=== PATIENT | female | born 1960 | race Caucasian/White ===

== ENCOUNTER → 2020-04-29 13:48 | Outpatient (BNVA) | payer OTHER, SELFPAY | PROVIDERS: PCP Internal Medicine; Referring Provider Internal Medicine; Visit Provider Obstetrics & Gynecology | DX: Z76.89 Persons encountering health services in other specified circumstances (principal) ==

== ENCOUNTER 2020-04-29 17:13 | Outpatient (REF) | payer OTHER, SELFPAY ==
[2020-05-05 21:38] LABS: HPV mRNA E6/E7 rflx Not Detected (Not Detected)
== END 2020-04-29 17:14 | disposition home or self-care (01) ==
LOC: HO.LNP 17:13
PROVIDERS: Visit Provider Obstetrics & Gynecology
DX: Z12.4 Encounter for screening for malignant neoplasm of cervix (principal)
CPT/HCPCS: 87624; 87625; 88142

== ENCOUNTER 2020-04-30 11:02 | Outpatient (REF) | payer OTHER, SELFPAY | END 2020-04-30 11:03 | disposition home or self-care (01) | LOC: HO.LAB 11:02 | PROVIDERS: Visit Provider Obstetrics & Gynecology | DX: Z13.89 Encounter for screening for other disorder (principal) ==

== ENCOUNTER → 2020-11-02 14:42 | Outpatient (BNVA) | payer OTHER, SELFPAY | PROVIDERS: PCP Internal Medicine; Referring Provider Internal Medicine; Visit Provider Internal Medicine Cardiovascular Disease | DX: I47.1 Supraventricular tachycardia (principal); I25.10 Atherosclerotic heart disease of native coronary artery without angina pectoris | CPT/HCPCS: 93005 ==

== ENCOUNTER 2020-11-06 08:29 | Outpatient (REF) | payer OTHER, SELFPAY ==
[2020-11-06 11:50] LABS: Cholesterol 192 mg/dL; HDL Cholesterol 50 mg/dL; LDL Cholesterol Calculated 130 mg/dl; Triglycerides 61 mg/dL
== END 2020-11-06 08:30 | disposition home or self-care (01) ==
LOC: HO.HMGCLDS 08:29
PROVIDERS: PCP Internal Medicine; Visit Provider Internal Medicine Cardiovascular Disease
DX: I25.10 Atherosclerotic heart disease of native coronary artery without angina pectoris (principal)
CPT/HCPCS: 36415; 80061

== ENCOUNTER 2021-01-28 08:50 | Outpatient (REF) | payer OTHER, SELFPAY ==
[2021-01-28 11:55] LABS: Alanine Aminotransferase 21 U/L (0-31); Albumin Level 4.2 g/dL (3.5-5.0); Alkaline Phosphatase 80 U/L (39-117); Anion Gap 12 (12-20); Aspartate Amino Transferase 24 U/L (5-31); Bilirubin Total 0.9 mg/dL (0.0-1.0); Blood Urea Nitrogen 11 mg/dL (9-16); Calcium 9.3 mg/dL (8.4-10.2); Carbon Dioxide 29 mmol/L (22-29); Chloride 105 mmol/L (96-108); Cholesterol 179 mg/dL; Estimated Glomerular Filt Rate > 60; Glucose Fasting 93 mg/dL (60-99); HDL Cholesterol 43 mg/dL; LDL Cholesterol Calculated 115 mg/dl; Potassium 4.1 mmol/L (3.3-5.1); Sodium 142 mmol/L (135-145); Total Protein 6.7 g/dL (6.5-8.0); Triglycerides 105 mg/dL
== END 2021-01-28 08:51 | disposition home or self-care (01) ==
LOC: HO.HMGCLDS 08:50
PROVIDERS: PCP Internal Medicine; Visit Provider Internal Medicine
DX: Z00.01 Encounter for general adult medical examination with abnormal findings (principal); E66.09 Other obesity due to excess calories; I25.10 Atherosclerotic heart disease of native coronary artery without angina pectoris; I47.1 Supraventricular tachycardia; R03.0 Elevated blood-pressure reading, without diagnosis of hypertension
CPT/HCPCS: 36415; 80053; 80061

== ENCOUNTER 2021-03-18 13:35 | Outpatient (REF) | payer OTHER, SELFPAY ==
--- NOTE | ~2021-03-18 | MM_ITS ---
EXAMINATION: MM SCREENING DIGITAL BREAST TOMOSYNTHESIS, BILATERAL CLINICAL INFORMATION: Screening. Asymptomatic. The lifetime risk of breast cancer based on the Tyrer-Cuzick Model is 5.2%. COMPARISON: Mammography: February 19, 2020 TECHNIQUE: Digital breast tomosynthesis is performed in both the craniocaudal and mediolateral oblique views along with computer-aided detection (CAD). Synthesized 2D images are generated from the tomosynthesis. FINDINGS: There are scattered areas of fibroglandular density (ACR BI-RADS breast composition Category b). There are no significant masses, abnormal calcifications, or other abnormalities. MM/MM tomosynthesis screening BI IMPRESSION: There are no significant changes from prior study. ASSESSMENT: BI-RADS 1: Negative RECOMMENDATION: Routine annual mammography screening. This patient's information was entered into a reminder system with a target due date for their next mammogram.
== END 2021-03-18 13:36 | disposition home or self-care (01) ==
LOC: HO.MAMMO 13:35
PROVIDERS: PCP Internal Medicine; Visit Provider Obstetrics & Gynecology
DX: Z12.31 Encounter for screening mammogram for malignant neoplasm of breast (principal)
CPT/HCPCS: 77063; 77067

== ENCOUNTER → 2021-06-15 15:08 | Outpatient (BNVA) | payer OTHER, SELFPAY | PROVIDERS: PCP Internal Medicine; Visit Provider Advanced Practice Midwife ==

== ENCOUNTER → 2021-11-15 12:47 | Outpatient (BNVA) | payer OTHER, SELFPAY | PROVIDERS: PCP Internal Medicine; Referring Provider Internal Medicine; Visit Provider Internal Medicine Cardiovascular Disease | DX: I25.10 Atherosclerotic heart disease of native coronary artery without angina pectoris (principal); I48.92 Unspecified atrial flutter; I10 Essential (primary) hypertension | CPT/HCPCS: 93005 ==

== ENCOUNTER 2021-11-19 08:11 | Outpatient (REF) | payer OTHER, SELFPAY ==
[2021-11-19 11:59] LABS: Anion Gap 11 (12-20); Blood Urea Nitrogen 11 mg/dL (9-16); Calcium 9.7 mg/dL (8.4-10.2); Carbon Dioxide 29 mmol/L (22-29); Chloride 101 mmol/L (96-108); Cholesterol 220 mg/dL; Estimated Glomerular Filt Rate > 60; Glucose Random 99 mg/dL (60-115); HDL Cholesterol 48 mg/dL; LDL Cholesterol Calculated 153 mg/dl; Potassium 4.3 mmol/L (3.3-5.1); Sodium 137 mmol/L (135-145); Triglycerides 97 mg/dL
== END 2021-11-19 08:12 | disposition home or self-care (01) ==
LOC: HO.HMGCLDS 08:11
PROVIDERS: PCP Internal Medicine; Visit Provider Internal Medicine Cardiovascular Disease
DX: I25.10 Atherosclerotic heart disease of native coronary artery without angina pectoris (principal)
CPT/HCPCS: 36415; 80048; 80061

== ENCOUNTER → 2021-12-24 13:47 | Outpatient (REF) | payer OTHER, SELFPAY ==
--- NOTE | 2021-12-24 14:16 | CA_ITS ---
Transthoracic Echocardiogram Patient (Last, First, Middle): Candida Chacon R Gender: Female Date of : 1960 Age: 61 Procedure Date: 12/24/2021 Procedure Type: Transthoracic Echocardiogram Location: OP Height: 167.64 cm Weight: 104.33 kg BSA: 2.12 m2 Heart Rate: bpm BP: 130 / 80 mmHg Director Of Cardiopulmonary Services: Referring MD: Iam Almeida MD Symptoms: I48.92 - Unspecified atrial flutter Study Quality: Fair ECG Rhythm: Sinus Conclusions: - The left ventricular systolic function is normal. The visually estimated ejection fraction is between 65-70%. - No obvious valvular pathology seen on this study. Findings Left Ventricle Normal left ventricular cavity size. There is mildly increased left ventricular wall thickness. The left ventricular systolic function is normal. The visually estimated ejection fraction is between 65-70%. There is no evidence of regional wall motion abnormalities. E/E prime ratio is between 8 and 15 consistent with indeterminate filling pressures. Evidence suggests grade I (mild) diastolic dysfunction. Right Ventricle Normal right ventricular cavity size and systolic function. Atria The left atrium is mildly dilated. The right atrium is normal in size. Aortic Valve There is a normal trileaflet aortic valve. There is no aortic valve stenosis. There is no aortic valve regurgitation. Mitral Valve The mitral valve appears normal. There is trace mitral valve regurgitation. There is no mitral valve stenosis. Pulmonic Valve There is trace to mild pulmonic valve regurgitation. Tricuspid Valve Normal tricuspid valve structure. There is mild tricuspid valve regurgitation. The pulmonary artery systolic pressure is normal. Great Vessels Top normal ascending aortic size at 3.8 cm. Venous The inferior vena cava is normal in size and collapses greater than 50% with inspiration. Pericardium/Pleural There is no evidence of pericardial effusion. Prior Study Comparison No significant change compared to prior study dated: 08/10/2019. Recommendations, Care & Conclusions No obvious valvular pathology seen on this study. Measurements 2D Linear Measurements IVSd: 1.13 0.6-0.9/0.6-1.0 cm LVIDd: 4.55 3.9-5.3/4.2-5.9 cm LVIDd Index: 2.15 2.4-3.2/2.2-3.1 cm/m2 LVIDs: 2.92 2.0-3.6 cm LVPWd: 1.07 0.7-1.1 cm Ao Root: 3.20 2.1-3.5 cm LA Diam: 4.40 2.7-3.8/3.0-4.0 cm LAIDs Index: 2.08 1.5-2.3 cm/m2 LV Mass: 221.88 67-162/88-224 g LV Mass Index: 104.66 43-95/49-115 g/m2 LVOT Diam: 2.00 3.0+(-)1.3 cm 2D Systolic Function EF 4C: 56.30 >55% EF 2C: 57.20 >55% EF BiP: 56.90 >55% Mitral Valve MV Pk E: 0.61 MV PK A: 0.47 MV Decel Time: 252.00 E/A: 1.30 E'Lateral: 4.46 E'Medial: 5.77 E/E' Med: 10.60 E/E' Lat: 13.70 PHT: 74.00 MVA PHT: 2.97 Decel Lyman: 2.44 Aortic Valve AoV Pk Mj: 1.49 AoV Mn Mj: 0.97 AoV VTI: 0.41 AoV Pk Grad: 9.00 Aov Mn Grad: 5.00 KIT Cont.VTI: 1.82 LVOT LVOT Pk Mj: 1.06 LVOT Mn Mj: 0.64 LVOT VTI: 0.24 LVOT Pk Grad: 4.00 LVOT Mn Grad: 2.00 LVOT Diam: 2.00 LVOT Area: 3.14 Diastolic Function MV Pk E: 0.61 MV Pk A: 0.47 E/A: 1.30 E'Medial: 5.77 E/E' Med: 10.60 E' Laterial: 4.46 E/E' Lat: 13.70 Right Ventricle TAPSE (mm): 23.00 Tricuspid Valve TR Pk Mj: 2.64 TR Pk Grad: 28.00 RA Press: 3.00 RVSP: 31.00 Great Vessels Aorta Ao Root-2D: 3.20 2.0-3.7 cm Ao Asc: 3.80 2.1-3.4 cm Pulmonary Valve PV Pk Mj: 0.99 Peak PV Grad: 4.00 Updated in Other Vendor System with Status of Final Ken Avina MD electronically signed on 12/26/2021 12:19:04 PM with status of Final
--- NOTE | 2021-12-24 14:16 | HM_ITS ---
Conclusion: 1. Patient was monitored for total period of 3 days 2. Baseline was normal sinus rhythm with average heart rate of 49 beats per minute 3. Frequent sinus bradycardia noted with 69% of time heart rate below 60 beats per minute with lowest heart rate of 35 beats per minute 4. No significant pauses noted 5. No episodes of atrial fibrillation noted 6. Total of 24 short episodes of supraventricular tachycardia longest lasting 8 beats 7. Rare PACs 8. Patient reported 4 events, with no reported symptoms, all correlated with isolated PACs MTDD
== END ==
LOC: HO.CARD 13:47
PROVIDERS: PCP Internal Medicine; Visit Provider Internal Medicine Cardiovascular Disease
DX: I48.92 Unspecified atrial flutter (principal)
CPT/HCPCS: 93242; 93306

== ENCOUNTER → 2022-02-03 07:22 | Outpatient (REF) | payer OTHER, SELFPAY ==
--- NOTE | 2022-02-03 07:24 | HM_ITS ---
* Total monitoring time 3 days. * Underlying rhythm is sinus. Average rate 56/Min. Range 37 to 123/Min. * About 43% the time, rate < 60/Min. No significant pauses. * No atrial fibrillation or flutter. * Rare supraventricular ectopy with minimal burden. 28 supraventricular episodes, longest 17 beats. * Rare supraventricular ectopy with minimal burden. * No patient events. MTDD
== END ==
LOC: HO.CARD 07:22
PROVIDERS: Visit Provider Internal Medicine Cardiovascular Disease
DX: I25.10 Atherosclerotic heart disease of native coronary artery without angina pectoris (principal); I48.92 Unspecified atrial flutter; I10 Essential (primary) hypertension
CPT/HCPCS: 93242

== ENCOUNTER 2022-03-22 14:44 | Outpatient (REF) | payer OTHER, SELFPAY ==
--- NOTE | ~2022-03-22 | MM_ITS ---
EXAMINATION: MM SCREENING DIGITAL BREAST TOMOSYNTHESIS, BILATERAL CLINICAL INFORMATION: Screening. Asymptomatic. The lifetime risk of breast cancer based on the Tyrer-Cuzick Model is 6%. COMPARISON: Mammography: 03/18/2021, 02/19/2020 (new baseline) TECHNIQUE: Digital breast tomosynthesis is performed in both the craniocaudal and mediolateral oblique views along with computer-aided detection (CAD). Synthesized 2D images are generated from the tomosynthesis. FINDINGS: There are scattered areas of fibroglandular density (ACR BI-RADS breast composition Category b). Parenchymal pattern is similar to prior exams and there is no interval mass, architectural abnormality, or developing density. No abnormal calcifications. There is small stable smooth nodule central right breast mid depth. The axilla are and skin contours are unremarkable. No significant changes. MM/MM tomosynthesis screening BI IMPRESSION: No mammographic evidence of malignancy. ASSESSMENT: BI-RADS 2: Benign RECOMMENDATION: Routine annual mammography screening. This patient's information was entered into a reminder system with a target due date for their next mammogram.
== END 2022-03-22 14:45 | disposition home or self-care (01) ==
LOC: HO.MAMMO 14:44
PROVIDERS: PCP Internal Medicine; Visit Provider Internal Medicine
DX: Z12.31 Encounter for screening mammogram for malignant neoplasm of breast (principal)
CPT/HCPCS: 77063; 77067

== ENCOUNTER → 2022-07-04 15:03 | Outpatient (BNVA) | payer OTHER, SELFPAY | PROVIDERS: PCP Internal Medicine; Visit Provider Advanced Practice Midwife | DX: Z01.419 Encounter for gynecological examination (general) (routine) without abnormal findings (principal) ==

== ENCOUNTER → 2022-07-05 09:01 | Outpatient (BNVA) | payer OTHER, SELFPAY | PROVIDERS: PCP Internal Medicine; Referring Provider Internal Medicine; Visit Provider Internal Medicine Cardiovascular Disease | DX: Z13.89 Encounter for screening for other disorder (principal) ==

== ENCOUNTER → 2022-07-28 08:09 | Outpatient (BNVA) | payer OTHER, SELFPAY | PROVIDERS: PCP Internal Medicine; Visit Provider Obstetrics & Gynecology | DX: Z13.89 Encounter for screening for other disorder (principal) ==

== ENCOUNTER 2023-02-10 08:14 | Outpatient (AMB) | payer OTHER, SELFPAY ==
--- NOTE | 2023-02-10 08:21 | A.OFFPC_ITS ---
Vital Signs 02/10/23 08:26 Height 5 ft 6 in Weight 245 lb 8 oz BMI 39.6 BP 142/82 H Blood Pressure Location Lt brachial Position Sitting Pulse 120 H Pulse Source Pulse Oximeter Pulse Oximetry (%) 96 Oxygen Delivery Method Room Air Intake Visit Reasons: Physical exam Allergies [id number] Reductase Inhibitor Allergy (Mild, Verified 02/10/23 08:27) Muscle Pain amoxicillin [AMOXICILLIN] Allergy (Unknown, Verified 02/10/23 08:27) HIVES azithromycin Allergy (Unknown, Verified 02/10/23 08:27) Unknown Sulfa (Sulfonamide Antibiotics) [SULFA (SULFONAMIDE ANTIBIOTICS)] Allergy (Unkn own, Verified 02/10/23 08:27) HIVES Medication List - Last Reconciled 02/10/23 by Michelle Sarmiento MD amlodipine 5 mg PO DAILY 90 days rivaroxaban (Xarelto) 20 mg PO QPM Tobacco use date assessed: 02/10/23 Dental Screening Dental Screen Date: 02/10/23 Did you have a dental visit in the last 12 months?: Yes Did you have a dental problem in the last 6 months where you did not have access to dental care?: No Was dental information given to patient?: No HPI Physical exam HPI Details Patient is a 62-year-old female came in today for physical examination Blood pressure is managed through Cardiology patient is seeing Dr. Almeida she is taking amlodipine 5 mg and Xarelto Blood pressure is 142/82, however patient feels very nervous when she comes to doctor's office. Her LDL was 153 last year when she had labs in October, I am ordering another set of labs for the patient to be done fasting She continued to decline to do colonoscopy however complaining of having diarrhea once a day for the past 1 month without any fever , nausea vomiting or blood in her stools. Patient says that her daughter has irritable bowel she feels she has similar Mammogram was April of last year Pap smear through [facility] BMI is elevated patient need to lose weight. Physical exam next year [facility] Medical History A-fib CAD (coronary artery disease) Cervical mass PAT (paroxysmal atrial tachycardia) Uncontrolled hypertension Surgical History H/O oral surgery Hx of cholecystectomy Hx of tonsillectomy Family History Father Heart failure Social History Housing: House Alcohol intake: never Patient Tobacco Use Status: Never used Tobacco e-Cigarette/Vaping Use: Never Used Second Hand Smoke Exposure: No Current occupational status: employed Sexual orientation: Straight/Heterosexual Gender identity: Female Cognitive needs: No Hearing needs: No Vision needs: Yes Female Reproductive History Menstrual Age of Menarche: 11 Questionnaire PHQ-9 Over the last 2 weeks, how often have you been bothered by any of the following problems? 1. Little interest or pleasure in doing things: not at all 2. Feeling down, depressed, or hopeless: not at all 3. Trouble falling or staying asleep, or sleeping too much: not at all 4. Feeling tired or having little energy: not at all 5. Poor appetite or overeating: not at all 6. Feeling bad about yourself - or that you are a failure or have let yourself or your family down: not at all 7. Trouble concentrating on things, such as reading the newspaper or watching television: not at all 8. Moving or speaking so slowly that other people could have noticed. Or the opposite - being so fidgety or restless that you have been moving around a lot more than usual: not at all 9. Thoughts that you would be better off or of hurting yourself in some way: not at all Total score: 0 Depression Screening Interpretation: Negative 23552 - PHQ-9 Billing: Yes Source: Developed by Drs. Jovanny Hernandez, Elly Costa, Jurgen Guillen and colleagues, with an educational marva from [employer]. Thrive Questionnaire Date Thrive assessed: 02/10/23 I am a: Patient What is your living situation today?: I have a steady place to live Within the past 12 months, did the food you bought not last and you didn't have the money to get more?: Never true Within the past 12 months, did you worry whether your food would run out before you got money to buy more?: Never true Do you have trouble paying for medicines?: No Do you have trouble getting transportation to medical appointments?: No Do you have trouble paying your heating and electricity bill?: No Do you have trouble taking care of your child, family member or friend?: No Do you have trouble with day-to-day activities such as bathing, preparing meals, shopping, managing finances, etc.?: No Are you currently unemployed and looking for a job?: No Are you interested in more education?: No AUDIT C Alcohol Use Questionnaire (AUDIT-C) 1. How often do you have a drink containing alcohol?: Never 3. How often do you have six or more drinks on one occasion?: Never Total Score: 0 Score Reviewed/Action Taken: Yes DARNELL-7 AMB Questionnaire DARNELL-7 Date DARNELL - 7 assessed: 02/10/23 Feeling nervous, anxious, or on edge: 0 = Not at all Not being able to stop or control worryin = Not at all Worrying too much about different things: 1 = Several days Trouble relaxin = Not at all Being so restless that it is hard to sit still: 0 = Not at all Becoming easily annoyed or irritable: 0 = Not at all Feeling afraid as if something awful might happen: 0 = Not at all Total DARNELL-7 score (0-4 normal; 5-9 mild; 10-14 moderate; 15-21 severe): 1 Source: Developed by Drs. Jovanny Hernandez, Elly Costa, Jurgen Guillen and colleagues, with an educational marva from [employer]. DARNELL-7 Assessment Billing DARNELL-7 Assessment Tool: DARNELL-7 Assessment 50970 Review of Systems Const Denies chills, Denies fever(s) and Denies headache(s) Eyes Denies blurry vision ENT Denies headache(s), Denies nasal discharge, Denies nasal obstruction, Denies odynophagia and Denies sinus pain Card Denies chest pain at rest and Denies chest pain with activity Resp Denies cough and Denies hemoptysis GI Denies diarrhea, Denies odynophagia, Denies vomiting and Denies hematemesis Reports as per HPI Musc Denies abnormal gait Skin/Breast Reports as per HPI Neuro Denies Neuro-related abnormal movements, Denies Abnormal speech present, Denies abnormal gait, Denies headache(s) and Denies Sensory deficit (Neuro) Psych Denies mood swings and Denies paranoia Endo Reports as per HPI Vance/Lymph Reports as per HPI Aller/Immun Reports as per HPI Physical exam (Primary Care) Vital Signs: Last Vital Signs Pulse 120 H 02/10/23 08:26 BP 142/82 H 02/10/23 08:26 Pulse Ox 96 02/10/23 08:26 Oxygen Delivery Method Room Air 02/10/23 08:26 BMI result Body Mass Index 39.6 Tobacco/Smoking Status: Tobacco use Status Tobacco use date assessed 02/10/23 02/10/23 08:27 Patient Tobacco Use Status Never used Tobacco 02/10/23 08:22 e-Cigarette/Vaping Use Never Used 02/10/23 08:22 PHQ-9: PHQ-9 Score PHQ-9: Total score 0 02/10/23 08:54 Depression Screening Interpretation: Negative Thrive Assessment: Date of Thrive Assessment Date Thrive assessed 02/10/23 02/10/23 08:54 Const General: cooperative, comfortable and no acute distress Orientation/consciousness: patient oriented x3 HENMT Head: Yes normocephalic and Yes atraumatic Eyes General: appearance normal, both eyes and all related structures Pupils: Equal, round and reactive pupils present EOM: EOMs intact bilaterally Neck Neck: Yes supple and No lymphadenopathy Thyroid: Thyroid normal Lymphatic: no lymphadenopathy noted Resp Effort & Inspection: normal respiratory effort and able to speak in complete sentences Auscultation: clear to auscultation bilaterally Cardio Heart sounds: S1 normal heart sound present and S2 normal heart sound present GI Palpation (GI): Soft to palpation and nontender Auscultation: normal bowel sounds General: Yes no CVA tenderness Back/Spine/Pelvis Back: no CVA tenderness Skin General skin exam: elasticity normal and turgor normal Neuro General: patient oriented x3 and gait normal Cranial nerves: Yes Equal, round and reactive pupils present Speech: No Abnormal speech present Sensory Exam: No Sensory deficit (Neuro) Coordination: tandem gait normal and Romberg test negative Extrem Other: Varicosities noted lower extremity bilateral General: Yes normal exam except as noted and No edema Assessment and Plan Assessment & Plan (1) Encounter for general adult medical examination with abnormal findings: Code(s): Z00.01 - Encounter for general adult medical examination with abnormal findings (2) Obesity due to excess calories: Code(s): E66.09 - Other obesity due to excess calories (3) Elevated blood pressure reading: Code(s): R03.0 - Elevated blood-pressure reading, without diagnosis of hypertension (4) Diarrhea: Code(s): R19.7 - Diarrhea, unspecified (5) Paroxysmal atrial flutter: Code(s): I48.92 - Unspecified atrial flutter (6) CAD (coronary artery disease): Code(s): I25.10 - Atherosclerotic heart disease of havasupai coronary artery without angina pectoris (7) Varicose veins of right lower extremity: Code(s): I83.91 - Asymptomatic varicose veins of right lower extremity (8) Colonoscopy refused: Code(s): Z53.20 - Procedure and treatment not carried out because of patient's decision for unspecified reasons Plan Patient is a 62-year-old female came in today for physical examination Blood pressure is managed through Cardiology patient is seeing Dr. Almeida she is taking amlodipine 5 mg and Xarelto Blood pressure is 142/82, however patient feels very nervous when she comes to doctor's office. Her LDL was 153 last year when she had labs in October, I am ordering another set of labs for the patient to be done fasting She continued to decline to do colonoscopy however complaining of having diarrhea once a day for the past 1 month without any fever , nausea vomiting or blood in her stools. Patient says that her daughter has irritable bowel she feels she has similar Mammogram was April of last year Pap smear through [facility] BMI is elevated patient need to lose weight. Physical exam next year Orders: Orders Comprehensive Ayr. Panel Fast Today E66.09 - Other obesity due to excess calories, R03.0 - Elevated blood-pressure reading, without diagnosis of hypertension, R19.7 - Diarrhea, unspecified, Z00.01 - Encounter for general adult medical examination with abnormal findings Lipid Panel Today E66.09 - Other obesity due to excess calories, R03.0 - Elevated blood-pressure reading, without diagnosis of hypertension, R19.7 - Diarrhea, unspecified, Z00.01 - Encounter for general adult medical examination with abnormal findings TSH reflex Free T4 Today E66.09 - Other obesity due to excess calories, R03.0 - Elevated blood-pressure reading, without diagnosis of hypertension, R19.7 - Diarrhea, unspecified, Z00.01 - Encounter for general adult medical examination with abnormal findings Complete Blood Count Auto Diff Today E66.09 - Other obesity due to excess calories, R03.0 - Elevated blood-pressure reading, without diagnosis of hypertension, R19.7 - Diarrhea, unspecified, Z00.01 - Encounter for general adult medical examination with abnormal findings Coding Level of Care Code Est Pt Prev Care 40-64y(52171) Diagnoses Encounter for general adult medical examination with abnormal findings Z00.01 Obesity due to excess calories E66.09 Elevated blood pressure reading R03.0 Diarrhea R19.7 Paroxysmal atrial flutter I48.92 CAD (coronary artery disease) I25.10 Varicose veins of right lower extremity I83.91 Colonoscopy refused Z53.20 Additional Codes DARNELL-7 Assessment Billing - DARNELL-7 Assessment Tool: DARNELL-7 Assessment [id number] ([id number])
[2023-02-10 08:26] VITALS: BP 142/82; PULSE 120; O2SAT 96; BMI 39.6
== END 2023-02-10 09:18 | disposition home or self-care (01) ==
PROVIDERS: Visit Provider Internal Medicine
DX: Z00.01 Encounter for general adult medical examination with abnormal findings (principal); E66.09 Other obesity due to excess calories; I48.92 Unspecified atrial flutter; Z68.39 Body mass index [BMI] 39.0-39.9, adult; R03.0 Elevated blood-pressure reading, without diagnosis of hypertension; R19.7 Diarrhea, unspecified; I25.10 Atherosclerotic heart disease of native coronary artery without angina pectoris; I83.91 Asymptomatic varicose veins of right lower extremity; Z53.20 Procedure and treatment not carried out because of patient's decision for unspecified reasons
CPT/HCPCS: 99396

== ENCOUNTER 2023-02-15 07:49 | Outpatient (REF) | payer OTHER, SELFPAY ==
[2023-02-15 11:11] LABS: MANUAL DIFF FLAG NO
[2023-02-15 11:39] LABS: Basophils Percent Auto 0.7 % (0-2); Eosinophils Absolute Auto 0.1 X10*3/uL (0.0-0.4); Eosinophils Percent Auto 2.1 % (0-4); Hemoglobin 14.8 g/dl (12.0-16.0); Imm Gran Abs Auto 0.03 X10*3/uL (0.00-0.03); Imm Gran Pct Auto 0.5 % (0.0-0.4); Lymphocytes Absolute Auto 1.9 X10*3/uL (1.2-4.9); Lymphocytes Percent Auto 34.1 % (20-40); Mean Corpuscular HGB Conc 33.6 g/dl (31.0-35.0); Mean Corpuscular Hemoglobin 30.1 pg (27.0-33.0); Mean Corpuscular Volume 89.6 fL (80.0-98.0); Mean Platelet Volume 11.3 fL (9.4-12.3); Monocytes Absolute Auto 0.3 X10*3/uL (0.1-1.2); Neutrophils Absolute Auto 3.2 x10*3/uL (2.0-8.3); Neutrophils Percent Auto 56.6 % (45-73); Platelet Count 199 X10*3/uL (160-400); Red Blood Count 4.91 X10*6/uL (4.20-5.50); Red Cell Distribution Width 13.3 % (11.0-16.0); White Blood Count 5.7 X10*3/uL (4.8-10.8)
[2023-02-15 12:11] LABS: Alanine Aminotransferase 20 U/L (0-31); Albumin Level 4.1 g/dL (3.5-5.0); Alkaline Phosphatase 77 U/L (39-117); Anion Gap 12 (12-20); Aspartate Amino Transferase 24 U/L (5-31); Blood Urea Nitrogen 13 mg/dL (9-16); Calcium 9.5 mg/dL (8.4-10.2); Carbon Dioxide 28 mmol/L (22-29); Chloride 105 mmol/L (96-108); Cholesterol 215 mg/dL (<200); Estimated Glomerular Filt Rate > 60; Glucose Fasting 91 mg/dL (60-99); HDL Cholesterol 48 mg/dL (>40); LDL Cholesterol Calculated 141 mg/dL (<100); Potassium 3.9 mmol/L (3.3-5.1); Sodium 141 mmol/L (135-145); Triglycerides 131 mg/dL (<150)
[2023-02-15 12:37] LABS: TSH reflex Free T4 3.03 uIU/mL (0.32-4.0)
== END 2023-02-15 07:50 | disposition home or self-care (01) ==
LOC: HO.HMGCLDS 07:49
PROVIDERS: PCP Internal Medicine; Visit Provider Internal Medicine
DX: Z00.01 Encounter for general adult medical examination with abnormal findings (principal); E66.09 Other obesity due to excess calories; R03.0 Elevated blood-pressure reading, without diagnosis of hypertension; R19.7 Diarrhea, unspecified
CPT/HCPCS: 36415; 80053; 80061; 84443; 85025

== ENCOUNTER 2023-03-28 07:43 | Outpatient (REF) | payer OTHER, SELFPAY ==
--- NOTE | ~2023-03-28 | MM_ITS ---
EXAMINATION: MM SCREENING DIGITAL BREAST TOMOSYNTHESIS, BILATERAL CLINICAL INFORMATION: Screening. Asymptomatic. COMPARISON: Mammography: 03/22/2022, 03/18/2021, 02/19/2020. TECHNIQUE: Digital breast tomosynthesis is performed in both the craniocaudal and mediolateral oblique views along with computer-aided detection (CAD). Synthesized 2D images are generated from the tomosynthesis. FINDINGS: There are scattered areas of fibroglandular density (ACR BI-RADS breast composition Category b). There is small stable smooth nodule central inferior right breast mid depth, stable and benign. There are early vascular calcifications bilaterally. These are benign. There are no suspicious masses, suspicious grouped calcifications, or areas of architectural distortion in either breast. The parenchymal pattern is stable from prior exams. No skin or axillary abnormalities. MM/MM tomosynthesis screening BI IMPRESSION: No mammographic evidence of malignancy. Stable benign findings. ASSESSMENT: BI-RADS BI-RADS 2 - Benign Findings RECOMMENDATION: Routine annual mammography screening. 1 year F/U This examination should not preclude the clinical evaluation of a suspicious palpable abnormality. This patient's information was entered into a reminder system with a target due date for their next mammogram.
== END 2023-03-28 07:44 | disposition home or self-care (01) ==
LOC: HO.MAMMO 07:43
PROVIDERS: PCP Internal Medicine; Visit Provider Internal Medicine
DX: Z12.31 Encounter for screening mammogram for malignant neoplasm of breast (principal)
CPT/HCPCS: 77063; 77067

== ENCOUNTER → 2023-03-28 08:00 | Outpatient (BNV) | payer OTHER, SELFPAY | PROVIDERS: PCP Internal Medicine; Visit Provider Radiology Diagnostic Radiology | DX: Z12.31 Encounter for screening mammogram for malignant neoplasm of breast (principal) | CPT/HCPCS: 77063; 77067 ==

== ENCOUNTER 2023-07-05 12:28 | Outpatient (REF) | payer OTHER, SELFPAY | END 2023-07-05 12:29 | disposition home or self-care (01) | LOC: HO.LNP 12:28 | PROVIDERS: PCP Internal Medicine; Visit Provider Obstetrics & Gynecology | DX: N84.1 Polyp of cervix uteri (principal); N95.0 Postmenopausal bleeding | CPT/HCPCS: 57500; 88305 ==

== ENCOUNTER 2023-07-05 12:28 | Outpatient (AMB) | payer OTHER, SELFPAY ==
--- NOTE | 2023-07-05 12:30 | MHC.OFFVIS ---
Intake Vital Signs 07/05/23 12:31 Height 5 ft 6 in Weight 256 lb BMI 41.3 BP 140/82 H Intake Visit Reasons: COMMERCIAL ATTACHE annual exam/cervical polyp Analytical Statistician Required: No Information Interpreted: non-clinical & clinical Plastics Spreading Machine Operator: Plastics Spreading Machine Operator Present (Aidyn) Allergies Cvalyxp-OHE-MlV Reductase Inhibitor Allergy (Mild, Verified 07/05/23 12:33) Muscle Pain amoxicillin [AMOXICILLIN] Allergy (Unknown, Verified 07/05/23 12:33) HIVES azithromycin Allergy (Unknown, Verified 07/05/23 12:33) Unknown Sulfa (Sulfonamide Antibiotics) [SULFA (SULFONAMIDE ANTIBIOTICS)] Allergy (Unknown, Verified 07/05/23 12:33) HIVES Is last menstrual period known: No Post menopausal: Yes Patient : No HPI HPI Comments History of Present Illness Details Presenting for annual exam. No complaints. Last exam the patient had cervical polyps and hysteroscopy D&C / polypectomy was recommended but it was not scheduled by the patient. The patient has been few episodes of vaginal bleeding over the last 2 months, stopped Xarelto on her own, is scheduled for cardiology appointment within a week Last Pap/HPV was negative in 05/15 Last Mammogram was BI-RADS 2 in 04/14 No previous screen Colonoscopy PFSH Medical History Uncontrolled hypertension Cervical mass PAT (paroxysmal atrial tachycardia) CAD (coronary artery disease) A-fib Surgical History H/O oral surgery Hx of cholecystectomy Hx of tonsillectomy Family History Father Heart failure Social History Housing: House Alcohol intake: never Patient Tobacco Use Status: Never used Tobacco e-Cigarette/Vaping Use: Never Used Second Hand Smoke Exposure: No Patient : No Current occupational status: employed Sexual orientation: Straight/Heterosexual Gender identity: Female Cognitive needs: No Hearing needs: No Vision needs: Yes Female Reproductive History Menstrual Age of Menarche: 11 control method: none Total pregnancies: 2 Full term: 2 Number of Living Children: 2 Date of last pap smear: 04/30/20 (negative) Date of Mammogram: 03/28/23 Review of Systems Const All systems reviewed & are unremarkable except as noted in HPI and below Card Reports as per HPI Resp Reports as per HPI GI Reports as per HPI and Reports no additional complaints Reports as per HPI Physical Exam Vital Signs: Last Vital Signs BP 140/82 H 07/05/23 12:31 BMI result Body Mass Index 41.3 Const General: cooperative, healthy appearing and comfortable Chest Chest palpation & inspection: normal inspection of the chest and normal palpation of entire chest wall Breast/axilla inspection: normal inspection of the breasts and normal inspection of the axillae Breast/axilla palpation: normal palpation of the breasts, normal palpation of the axillae and no axillary lymphadenopathy Resp Effort & Inspection: normal respiratory effort Auscultation: clear to auscultation bilaterally Percussion: percussion normal Cardio Palpation: normal PMI Rate: regular rate Rhythm: regular rhythm Heart sounds: no murmurs and no rubs Peripheral pulses: Peripheral pulses 2+ throughout GI Inspection: Yes normal to inspection Palpation (GI): Soft to palpation, nontender, no guarding, not rigid and No hepatosplenomegaly present Percussion: Yes normal to percussion Auscultation: normal bowel sounds Rectal Exam - Female: deferred General: Yes bladder normal to palpation External Female Exam: No lesion Speculum Exam - Vagina: normal appearance of the vagina, normal palpation, normal vaginal discharge and not erythematous Speculum Exam - Cervix: normal appearance of the cervix, normal palpation and Other cervical findings present (Three cervical polyps protruding from the endocervix) Bimanual exam- vagina & uterus: normal bimanual exam, normal palpation, uterine size normal, bladder normal to palpation, consistency normal and normal palpation Bimanual Exam- Adnexa, other: normal adnexae, no masses and no tenderness Office Procedures Endometrial Biopsy Details: The patient was counseled regarding the indication and benefits of endometrial sampling to rule out endometrial pathology including not limited to endometrial hyperplasia or endometrial cancer and others; The alternatives (Either do nothing vs. hysteroscopy D&C) & the risks were discussed with the patient including but not limited: pain, uterine perforation, bleeding, infection, possible injury to bladder, bowel, ureter, possible need for blood transfusion with all its possible risks. The patient verbalized understanding all questions answered and signed consent. The patient was placed into the dorsal lithotomy position; a speculum was inserted in the vagina. Using aseptic technique for the procedure, the cervix was cleansed with Betadine. The anterior lip of the cervix was grasped with a single tooth tenaculum. The uterus was sounded to 7 cm with a 4 mm Pipelle was used. Tissues samples were obtained and placed in formalin, in a patient labeled container and sent to the pathology department. At the end of the procedure, there was minimal bleeding noted The patient tolerated the procedure well and was discharged in good condition with the following instructions: Nothing in the vagina until the bleeding stops. No sex until the bleeding stops, to call if any of the following occurs: fever (>100.4), flu-like symptoms, abdominal pain, heavy bleeding, four smelling vaginal discharge. The patient was instructed to schedule a Follow up appointment in 2 weeks to discuss pathology results of the biopsy and treatment options. This note was generated with a voice recognition program. Some errors may have been overlooked during the review of this note. Sometimes these errors may affect the content or meaning of a given sentence. 44154-Vdyomaicbwg Biopsy COMMERCIAL ATTACHE Biopsy Before the procedure was started, discussed with the patient the procedure technique, alternatives & all the risks associated with the procedure including but not limited to: bleeding , infection, uterine perforation, injury to bladder, vessels, bowels, possible need for transfusion with all its risks, and others. All questions were answered, the patient verbalized understanding and signed the consent. Using a long Lurdes Clamp the 30 endocervical polyp were grasped when 100 time and twisted around till it came off, hemostasis was secured using pressure. The patient tolerated the procedure well. Instructions were given to the patient to call if bleeding, temp>100.4 occur. The patient verbalized understanding and agreed with the plan. This note was generated with a voice recognition program. Some errors may have been overlooked during the review of this note. Sometimes these errors may affect the content or meaning of a given sentence. 56964-Mboldi of Cervix Procedure code (CPT) selection complete Assessment & Plan Assessment & Plan (1) Well woman exam: Code(s): Z01.419 - Encounter for gynecological examination (general) (routine) without abnormal findings Plan: Co testing not indicated this year. Counseled the patient about the recommended dietary allowance of 1200 mg of Calcium & 600 IU of vitamin D. Instructions given the patient to schedule next screen Mammogram in 04/18. Offered the patient to be referred to GI for screening colonoscopy , the patient electing abutting back to us. The patient was instructed to perform monthly self-breast exams and schedule annual exam in a year. All questions answered and the patient verbalized understanding. (2) Polyp at cervical os: Comment: x3 Code(s): N84.1 - Polyp of cervix uteri Plan: Discussed with the patient the finding on pelvic exam showing 3 endocervical polyps, recommended polypectomies. Polypectomies done, see procedure note (3) Postmenopausal bleeding: Code(s): N95.0 - Postmenopausal bleeding Plan: Discussed with the patient the differential diagnosis of post menopausal bleeding with normal pelvic exam including but not limited to, endometrial hyperplasia, cancer, polyps and other causes; recommended ultrasound and EMB , EMB done, see procedure note. Instructed the patient to schedule an ultrasound follow-up appointment in 2 weeks. All questions answered, the patient verbalized understanding and agreed with the plan. Orders: Orders AMB Endometrial Biopsy Today N95.0 - Postmenopausal bleeding AMB COMMERCIAL ATTACHE Biopsy Today N84.1 - Polyp of cervix uteri Surgical Today N84.1 - Polyp of cervix uteri US pelvic and transvaginal Today N95.0 - Postmenopausal bleeding Coding Level of Care Code Est Pt Level 4 (95049) Procedure Only Diagnoses Well woman exam Z01.419 Polyp at cervical os N84.1 Postmenopausal bleeding N95.0 CPT Codes Endometrial Biopsy - CPT: 56602-Ntikfhyjijw Biopsy ([id number]) COMMERCIAL ATTACHE Biopsy - CPT: 89018-Gzlzlc of Cervix ([id number])
[2023-07-05 12:31] VITALS: BP 140/82; BMI 41.3
== END 2023-07-05 13:14 | disposition home or self-care (01) ==
PROVIDERS: PCP Internal Medicine; Visit Provider Obstetrics & Gynecology
DX: Z01.419 Encounter for gynecological examination (general) (routine) without abnormal findings (principal); N84.1 Polyp of cervix uteri; N95.0 Postmenopausal bleeding
CPT/HCPCS: 57500; 99396

== ENCOUNTER 2023-07-11 12:28 | Outpatient (AMB) | payer OTHER, SELFPAY ==
[2023-07-11 12:45] VITALS: BP 146/84; PULSE 113; BMI 41.3
--- NOTE | 2023-07-11 12:45 | MHC.OFFVIS ---
Intake Vital Signs 07/11/23 12:45 Height 5 ft 6 in Weight 255 lb 11.779 oz BMI 41.3 BP 146/84 H Blood Pressure Location Lt brachial Position Sitting Pulse 113 H Intake Visit Reasons: 1 year fu Intake Note: 1 year follow-up with ekg xarelto Allergies Rjhzlmy-YLD-BaE Reductase Inhibitor Allergy (Mild, Verified 07/05/23 12:33) Muscle Pain amoxicillin [AMOXICILLIN] Allergy (Unknown, Verified 07/05/23 12:33) HIVES azithromycin Allergy (Unknown, Verified 07/05/23 12:33) Unknown Sulfa (Sulfonamide Antibiotics) [SULFA (SULFONAMIDE ANTIBIOTICS)] Allergy (Unknown, Verified 07/05/23 12:33) HIVES Medication List - Last Reconciled 07/11/23 by Iam Almeida MD amlodipine 5 mg PO DAILY 90 days HPI HPI Comments History of Present Illness Details Patient comes for follow-up. Underwent vaginal polypectomy due to vaginal bleeding as well as uterine biopsy last week. Patient stopped his Xarelto prior to that because of heavy vaginal bleeding. 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 Since then she has been anxious. She says she has not feeling right since then. She still has some spotting from her vagina but no heavy bleeding which has improved. She denies any overt palpitations. She denies any lightheadedness, syncope. Denies any orthopnea, PND. [facility] Medical History Uncontrolled hypertension Cervical mass PAT (paroxysmal atrial tachycardia) CAD (coronary artery disease) A-fib Surgical History H/O oral surgery Hx of cholecystectomy Hx of tonsillectomy Family History Father Heart failure Social History Housing: House Alcohol intake: never Patient Tobacco Use Status: Never used Tobacco e-Cigarette/Vaping Use: Never Used Second Hand Smoke Exposure: No Current occupational status: employed Sexual orientation: Straight/Heterosexual Gender identity: Female Cognitive needs: No Hearing needs: No Vision needs: Yes Female Reproductive History Menstrual Age of Menarche: 11 Review of Systems Const Denies chills, Denies fatigue, Denies fever(s), Denies frequent falls, Denies weakness, Denies weight gain and Denies weight loss ENT Denies dizziness Card Denies chest pain, Denies leg edema, Denies lightheadedness, Denies palpitations, Denies dyspnea, Denies dyspnea on exertion, Denies orthopnea and Denies other (loss of consciousness) Resp Denies cough, Denies dyspnea and Denies dyspnea on exertion GI Denies hematochezia and Denies change in stool character Musc Denies abnormal gait, Denies muscle weakness, Denies numbness, Denies radiating pain into limb and Denies tingling Neuro Denies abnormal gait, Denies dizziness, Denies frequent falls, Denies numbness, Denies tingling and Denies weakness Endo Denies fatigue and Denies palpitations Physical Exam Vital Signs: Last Vital Signs Pulse 113 H 07/11/23 12:45 BP 146/84 H 07/11/23 12:45 BMI result Body Mass Index 41.3 Const General: cooperative, healthy appearing, no acute distress, well developed, alert and anxious Nutritional Appearance: obese Orientation/consciousness: patient oriented x3 HEENT Head: Yes normal to inspection Eyes General: appearance normal, both eyes and all related structures Neck Neck: Yes trachea midline, Yes supple and Yes no JVD Chest Chest palpation & inspection: normal inspection of the chest Breast/axilla inspection: normal inspection of the breasts (no puckering, dimpling, peau de orange, retraction, discharge, masses) Breast/axilla palpation: normal palpation of the breasts Resp Effort & Inspection: normal respiratory effort Auscultation: clear to auscultation bilaterally Cardio Jugular venous distension: no JVD Rate: tachycardic Rhythm: abnormal rhythm irregularly irregular Heart sounds: S1 normal heart sound present, S2 normal heart sound present, no click, no gallops, no murmurs and no rubs GI Inspection: Yes normal to inspection and Yes obesity Palpation (GI): Soft to palpation General: Yes bladder normal to palpation External Female Exam: normal external appearance and normal appearance of the urethra Speculum Exam - Vagina: normal appearance of the vagina, normal palpation and normal vaginal discharge Speculum Exam - Cervix: normal appearance of the cervix, normal palpation and Cervical mass present (~3 cm protruding from cervical os, most likely polyp) Bimanual exam- vagina & uterus: normal bimanual exam, normal palpation, uterine size normal, bladder normal to palpation and normal palpation Bimanual Exam- Adnexa, other: normal adnexae and no masses Skin General skin exam: no rashes or lesions noted Neuro General: patient oriented x3 Cognition (Neuro): normal cognition Extrem General: Yes normal to inspection Psych Attitude: cooperative Thought process: Normal thought process present Office Procedures EKG Details: EKG shows atrial flutter with rapid ventricular response with variable AV block with poor R-wave progression most likely due to lead placement 57450-Ugkknseiefjoxlceo, Complete Assessment & Plan Assessment & Plan (1) Atrial flutter with rapid ventricular response: Code(s): I48.92 - Unspecified atrial flutter Plan: Atrial flutter with rapid ventricular response on presentation today to the office. She had prior paroxysmal atrial flutter. She is extremely anxious since she had the electronics technology department chair procedure. Discussed with Dr. Pederson who agreed to restart Xarelto therapy. Advised to restart this as soon as possible. Will also switch her rate control to Cardizem therapy. Hold off on amlodipine therapy. She has not tolerated metoprolol and carvedilol in the past. Advised to monitor blood pressure at home. Follow-up Holter monitor in 2 weeks. Also follow-up echocardiogram in 2 weeks. Follow up in the clinic in 3 weeks and if she remains in persistent atrial flutter at that point in time will discuss about synchronized cardioversion as long as she has been able to take her Xarelto religiously on a daily basis. (2) CAD (coronary artery disease): Code(s): I25.10 - Atherosclerotic heart disease of [place] coronary artery without angina pectoris Plan: CAD nonobstructive. Has not tolerated statin therapy in the past. Importance of this was discussed. Target goal LDL less than 70 mg/dL. Currently on full oral anticoagulation by Xarelto and would avoid antiplatelet therapy. Blood pressure is well optimized advised to monitor blood pressure at home maintain a log. Goal blood pressure less than 130/84. Encouraged to participate in heart healthy lifestyle with regular physical activity and weight loss. Will follow up in the clinic in 3 weeks time, sooner p.r.n.. Thank you for allowing me to partake in the care Medications: New rivaroxaban (Xarelto) must administer with evening meal 20 mg PO DAILY 90 tabs 1RF diltiazem HCl (Cardizem CD) 180 mg PO DAILY 30 caps 5RF Discontinued amlodipine Discontinued Reason: Doctor's Order 5 mg PO DAILY 90 days 90 tabs 3RF Coding Level of Care Code Est Pt Level 4 (43370) Diagnoses Atrial flutter with rapid ventricular response I48.92 CAD (coronary artery disease) I25.10 CPT Codes EKG - CPT: 46133-Yxaoiebtikkylsbvr, Complete ([id number])
== END 2023-07-11 13:23 | disposition home or self-care (01) ==
PROVIDERS: Visit Provider Internal Medicine Cardiovascular Disease
DX: I48.92 Unspecified atrial flutter (principal); I25.10 Atherosclerotic heart disease of native coronary artery without angina pectoris
CPT/HCPCS: 93010; 99214

== ENCOUNTER → 2023-07-11 12:28 | Outpatient (BNVA) | payer OTHER, SELFPAY | PROVIDERS: Visit Provider Internal Medicine Cardiovascular Disease | DX: I48.92 Unspecified atrial flutter (principal); I25.10 Atherosclerotic heart disease of native coronary artery without angina pectoris; Z79.01 Long term (current) use of anticoagulants | CPT/HCPCS: 93005 ==

== ENCOUNTER → 2023-07-21 07:56 | Outpatient (REF) | payer OTHER, SELFPAY ==
--- NOTE | 2023-07-21 08:00 | CA_ITS ---
Transthoracic Echocardiogram Patient (Last, First, Middle): Candida Chacon R Gender: Female Date of : 1960 Age: 62 Procedure Date: 07/21/2023 Procedure Type: Transthoracic Echocardiogram Location: OP Height: 167.64 cm Weight: 103.99 kg BSA: 2.12 m2 Heart Rate: bpm BP: 140 / 90 mmHg [place]: TO Referring MD: Iam Almeida MD Symptoms: I48.92 - Unspecified atrial flutter Study Quality: Adequate Conclusions: - Normal left ventricular size and systolic function. There is moderately increased left ventricular wall thickness. The visually estimated ejection fraction is between 55-60%. - Normal right ventricular cavity size and systolic function. - The left atrium is mildly dilated. The right atrium is moderately dilated. Findings Left Ventricle Normal left ventricular size and systolic function. There is moderately increased left ventricular wall thickness. The visually estimated ejection fraction is between 55-60%. There is no evidence of regional wall motion abnormalities. Diastolic function is indeterminate on the basis of available data. Right Ventricle Normal right ventricular cavity size and systolic function. Atria The left atrium is mildly dilated. The right atrium is moderately dilated. Aortic Valve Normal aortic valve structure and function. There is no aortic valve stenosis. There is no aortic valve regurgitation. Mitral Valve The mitral valve appears normal. There is trace mitral valve regurgitation. There is no mitral valve stenosis. Pulmonic Valve The pulmonic valve is normal. There is trace pulmonic valve regurgitation. Tricuspid Valve Normal tricuspid valve structure. There is trace tricuspid valve regurgitation. Normal right atrial pressure. There is no evidence of pulmonary hypertension. Great Vessels There is mild dilatation of the ascending aorta measuring 3.80 cm. The visualized portions of the pulmonary artery and branches are normal. Venous The inferior vena cava is normal in size and collapses greater than 50% with inspiration. Pericardium/Pleural There is no evidence of pericardial effusion. Prior Study Comparison Changes noted compared to prior study dated: 12/24/2021. Moderate LVH, RA dilation. Measurements 2D Linear Measurements IVSd: 1.17 0.6-0.9/0.6-1.0 cm LVIDd: 4.51 3.9-5.3/4.2-5.9 cm LVIDd Index: 2.13 2.4-3.2/2.2-3.1 cm/m2 LVIDs: 2.65 2.0-3.6 cm LVPWd: 1.20 0.7-1.1 cm LA Diam: 4.60 2.7-3.8/3.0-4.0 cm LAIDs Index: 2.17 1.5-2.3 cm/m2 LV Mass: 243.28 67-162/88-224 g LV Mass Index: 114.76 43-95/49-115 g/m2 LVOT Diam: 2.40 3.0+(-)1.3 cm 2D Systolic Function EF 4C: 57.90 >55% EF 2C: 55.90 >55% EF BiP: 56.80 >55% Mitral Valve MV Pk E: 1.00 MV Decel Time: 158.00 E'Lateral: 11.20 E'Medial: 6.02 E/E' Med: 16.60 E/E' Lat: 8.90 PHT: 46.00 MVA PHT: 4.78 Decel [place]: 6.36 Aortic Valve AoV Pk Mj: 1.16 AoV Mn Mj: 0.81 AoV VTI: 0.26 AoV Pk Grad: 5.00 Aov Mn Grad: 3.00 KIT Cont.VTI: 2.91 LVOT LVOT Pk Mj: 0.78 LVOT Mn Mj: 0.52 LVOT VTI: 0.17 LVOT Pk Grad: 2.00 LVOT Mn Grad: 1.00 LVOT Diam: 2.40 LVOT Area: 4.52 Diastolic Function MV Pk E: 1.00 E'Medial: 6.02 E/E' Med: 16.60 E' Laterial: 11.20 E/E' Lat: 8.90 Right Ventricle TAPSE (mm): 19.40 TVS' Mj: 12.90 Tricuspid Valve TR Pk Mj: 2.59 TR Pk Grad: 27.00 RA Press: 3.00 RVSP: 30.00 Great Vessels Aorta Sinus of Valsalva: 3.43 2.0-3.5 cm Ao Asc: 3.80 2.1-3.4 cm Updated in Other Vendor System with Status of Final Claus Denney MD electronically signed on 07/23/2023 2:58:36 PM with status of Final
--- NOTE | 2023-07-21 08:00 | HM_ITS ---
* Total monitoring time 3 days. * Underlying rhythm is atrial flutter versus fibrillation in different strips. Difficult to distinguish. * Average ventricular rate is 63/Min. * No significant pauses or AV blocks. * Pounding in patient diary associated with atrial flutter at controlled rate. * Overall, controlled atrial flutter/fibrillation with slight tendency for rapid rates up to 152/Min. MTDD
== END ==
LOC: HO.CARD 07:56
PROVIDERS: PCP Internal Medicine; Visit Provider Internal Medicine Cardiovascular Disease
DX: I48.92 Unspecified atrial flutter (principal); I25.10 Atherosclerotic heart disease of native coronary artery without angina pectoris
CPT/HCPCS: 93242; 93306

== ENCOUNTER → 2023-07-21 08:00 | Outpatient (BNV) | payer OTHER, SELFPAY | PROVIDERS: PCP Internal Medicine; Visit Provider Internal Medicine Cardiovascular Disease | DX: I48.92 Unspecified atrial flutter (principal) | CPT/HCPCS: 93244; 93306 ==

== ENCOUNTER 2023-08-03 11:07 | Outpatient (REF) | payer OTHER, SELFPAY ==
--- NOTE | ~2023-08-03 | US_ITS ---
EXAMINATION: US PELVIC COMPLETE WITH TV CLINICAL INFORMATION: Postmenopausal bleeding, benign endometrial biopsy COMPARISON: None available. TECHNIQUE: Real-time transabdominal and transvaginal ultrasound scanning. FINDINGS: Transabdominal and transvaginal ultrasound examination of the pelvis were performed. Uterus: Retroverted; measuring 6.6 cm in length, 3.7 cm in AP diameter and 2.9 cm in width. Uterine cervix measures 2.3 cm in length. Echotexture: normal sonographic appearance Endometrial Thickness: 1.31 cm. Multiple tiny cystic lesions are seen in the endometrial stripe up to 0.5 cm in diameter. Right ovary: 2.8 x 1.6 x 2.5 cm (SAG x AP x TRV), calculated volume of 5.82 mL, with normal echotexture. A small right adnexal partially cystic lesion is seen measuring 1.3 x 1.6 x 1.2 cm in size. Left ovary: 4.9 x 5.7 x 5.7 cm (SAG x AP x TRV), calculated volume of 82.9mL, replaced by a large hypoechoic lesion with extensive internal echoes including hyperechoic foci measuring 5.1 x 4.4 x 5.0 cm in size. No free fluid is present. Limited view of the urinary bladder shows no abnormality. US/US pelvic and transvaginal IMPRESSION: 1. Thickened endometrium with multiple tiny cystic lesions up to 0.5 cm in diameter. 2. Small partially cystic lesion in the right adnexa measuring up to 1.6 cm in size. 3. Large complex cystic lesion with extensive internal echoes in the left ovary measuring up to 5.1 cm in size, compatible with hemorrhagic lesion. 4. Further evaluation with pre and postcontrast MRI of the pelvis is recommended to evaluate ovarian tumor.
== END 2023-08-03 11:08 | disposition home or self-care (01) ==
LOC: HO.US 11:07
PROVIDERS: PCP Internal Medicine; Visit Provider Obstetrics & Gynecology
DX: N95.0 Postmenopausal bleeding (principal)
CPT/HCPCS: 76830; 76856

== ENCOUNTER 2023-08-04 07:34 | Outpatient (REF) | payer OTHER, SELFPAY ==
[2023-08-04 08:41] LABS: Carcinoembryonic Antigen < 1.73 ng/mL
[2023-08-04 09:26] LABS: Blood Urea Nitrogen 12 mg/dL (9-16); Estimated Glomerular Filt Rate > 60
[2023-08-07 17:07] LABS: CA-125 8 U/mL (<35); Carbohydrate Antigen 19-9 4 U/mL (<34)
== END 2023-08-04 07:35 | disposition home or self-care (01) ==
LOC: HO.LAB 07:34
PROVIDERS: PCP Internal Medicine; Visit Provider Obstetrics & Gynecology
DX: N83.291 Other ovarian cyst, right side (principal); N83.292 Other ovarian cyst, left side; N95.0 Postmenopausal bleeding
CPT/HCPCS: 36415; 82378; 82565; 84520; 86301; 86304

== ENCOUNTER 2023-08-04 07:50 | Outpatient (AMB) | payer OTHER, SELFPAY ==
--- NOTE | 2023-08-04 07:52 | MHC.OFFVIS ---
Intake Vital Signs 08/04/23 07:54 Height 5 ft 6 in Weight 255 lb 11.779 oz BMI 41.3 BP 132/94 H Intake Visit Reasons: Ultra sound results Allergies Yojfetp-GRN-TpL Reductase Inhibitor Allergy (Mild, Verified 07/05/23 12:33) Muscle Pain amoxicillin [AMOXICILLIN] Allergy (Unknown, Verified 07/05/23 12:33) HIVES azithromycin Allergy (Unknown, Verified 07/05/23 12:33) Unknown Sulfa (Sulfonamide Antibiotics) [SULFA (SULFONAMIDE ANTIBIOTICS)] Allergy (Unknown, Verified 07/05/23 12:33) HIVES HPI HPI Comments History of Present Illness Details Presenting for follow-up after EMB and polypectomy and pelvic ultrasound. The patient is doing well with no more vaginal bleeding. Pelvic ultrasound showed the following: Transabdominal and transvaginal ultrasound examination of the pelvis were performed. Uterus: Retroverted; measuring 6.6 cm in length, 3.7 cm in AP diameter and 2.9 cm in width. Uterine cervix measures 2.3 cm in length. Echotexture: normal sonographic appearance Endometrial Thickness: 1.31 cm. Multiple tiny cystic lesions are seen in the endometrial stripe up to 0.5 cm in diameter. Right ovary: 2.8 x 1.6 x 2.5 cm (SAG x AP x TRV), calculated volume of 5.82 mL, with normal echotexture. A small right adnexal partially cystic lesion is seen measuring 1.3 x 1.6 x 1.2 cm in size. Left ovary: 4.9 x 5.7 x 5.7 cm (SAG x AP x TRV), calculated volume of 82.9mL, replaced by a large hypoechoic lesion with extensive internal echoes including hyperechoic foci measuring 5.1 x 4.4 x 5.0 cm in size. No free fluid is present. Limited view of the urinary bladder shows no abnormality. EMB and polypectomy pathology showed the following: A. Endometrium, biopsy: -Strips of benign atrophic endometrium, and benign endocervical glandular epithelium; no atypia or carcinoma. B. Cervical polyp, resection: -Benign endocervical polyps with inflammation and cysts. -Benign endometrial polyp, inflamed, without atypia. [facility] Medical History Uncontrolled hypertension Cervical mass PAT (paroxysmal atrial tachycardia) CAD (coronary artery disease) A-fib Surgical History H/O oral surgery Hx of cholecystectomy Hx of tonsillectomy Family History Father Heart failure Social History Housing: House Alcohol intake: never Patient Tobacco Use Status: Never used Tobacco e-Cigarette/Vaping Use: Never Used Second Hand Smoke Exposure: No Current occupational status: employed Sexual orientation: Straight/Heterosexual Gender identity: Female Cognitive needs: No Hearing needs: No Vision needs: Yes Female Reproductive History Menstrual Age of Menarche: 11 Review of Systems Const All systems reviewed & are unremarkable except as noted in HPI and below Reports as per HPI and Reports no additional complaints GI Reports no additional complaints Reports no additional complaints Physical Exam Vital Signs: Last Vital Signs BP 132/94 H 08/04/23 07:54 BMI result Body Mass Index 41.3 Assessment & Plan Assessment & Plan (1) Complex cyst of both ovaries: Code(s): N83.291 - Other ovarian cyst, right side; N83.292 - Other ovarian cyst, left side Plan: Discussed with the patient finding on ultrasound showing bilateral complex ovarian lesions, and the differential diagnosis including but not limited to : Benign, premalignant and malignant administrative support manager and non administrative support manager pathology. CA 125, CEA and CA 19-[address] scan of abdomen pelvis requested. Will refer to administrative support manager Oncology at [facility]. Appointment scheduled on 08/15/[address] Mckeon, the patient is aware of it. (2) Postmenopausal bleeding: Comment: Thickened cystic endometrium by ultrasound Code(s): N95.0 - Postmenopausal bleeding Plan: Discussed with the patient the results of the endometrial biopsy showing inactive endometrium. Discussed with the patient the sensitivity, specificity, positive and negative predictive value, of endometrial biopsy in detecting endometrial pathology including but not limited to endometrial hyperplasia, cancer and other pathology; in addition discussed with the patient the thickened endometrium with cystic changes , the differential diagnosis includes endometrial polyp, hyperplasia and/or malignancy. Recommended hysteroscopy D&C possible polypectomy, but will hold off the procedure since the patient will undergo surgical management for bilateral ovarian complex lesions with possible hysterectomy. instructed the patient to call in case vaginal bleeding bleeding recurs, the next step will be to proceed with a diagnostic hysteroscopy/D&C for further endometrial sampling evaluation to rule out endometrial pathology in case she does not undergo a hysterectomy. All questions answered and the patient verbalized understanding and agreed with the plan. Orders: Orders Creatinine Today N83.291 - Other ovarian cyst, right side, N83.292 - Other ovarian cyst, left side Blood Urea Nitrogen Today N83.291 - Other ovarian cyst, right side, N83.292 - Other ovarian cyst, left side Referrals Gynecologic Oncology Referral N83.291 - Other ovarian cyst, right side, N83.292 - Other ovarian cyst, left side Coding Level of Care Code Est Pt Level 3 (17893) Diagnoses Complex cyst of both ovaries N83.291; N83.292 Postmenopausal bleeding N95.0
[2023-08-04 07:54] VITALS: BP 132/94; BMI 41.3
== END 2023-08-04 09:17 | disposition home or self-care (01) ==
LOC: HO.HWS 07:50
PROVIDERS: PCP Internal Medicine; Visit Provider Obstetrics & Gynecology
DX: N83.291 Other ovarian cyst, right side (principal); N83.292 Other ovarian cyst, left side; N95.0 Postmenopausal bleeding
CPT/HCPCS: 99213

== ENCOUNTER 2023-08-07 09:16 | Outpatient (REF) | payer OTHER, SELFPAY ==
--- NOTE | ~2023-08-07 | CT_ITS ---
EXAMINATION: CT ABDOMEN AND PELVIS WITH CONTRAST CLINICAL INFORMATION: Ovarian cyst. COMPARISON: Pelvic ultrasound 08/03/2023. TECHNIQUE: Multidetector volumetric images were obtained from the superior aspect of the liver through the pubic symphysis following administration 85 mL of Omnipaque 350 intravenous contrast. Sagittal and coronal reformatted images were obtained on the technologist's workstation. Oral contrast: Yes This CT examination was performed using dose optimization techniques as appropriate, variously including the following: *Automated exposure control *Adjustment of mA and/or kV according to patient size (this includes techniques or standardized protocols for targeted exams where dose is matched to indication/reason for exam; i.e. extremities or head) *Use of iterative reconstruction technique DLP: 651 mGy-cm FINDINGS: LUNG BASES: Normal size. No suspicious lung nodules at the bases to suggest pulmonary metastatic disease. LIVER, GALLBLADDER, AND BILIARY TREE: No discrete liver mass. No biliary ductal dilatation. Cholecystectomy. PANCREAS: No discrete mass. No ductal dilatation. SPLEEN: Normal size. No focal lesion. ADRENAL GLANDS: No adrenal mass. KIDNEYS AND URETERS: The kidneys are normal in size, shape, and attenuation. No hydronephrosis, hydroureter, or calculi seen. No perinephric stranding. BLADDER: Unremarkable. GASTROINTESTINAL TRACT: Small hiatal hernia. The small and large bowel are normal in caliber. No acute inflammatory changes. No discrete bowel mass is visualized. ABDOMINAL WALL: No significant hernia is appreciated. LYMPH NODES: No lymphadenopathy. VASCULAR: No aortic aneurysm. Mild aortoiliac atherosclerosis. PELVIC VISCERA: 5.2 x 4.9 x 5.1 cm peripherally calcified lesion in the left ovary/adnexum with a suggestion of calcified septations internally but this is not well characterized due to streak artifact. The uterus is grossly unremarkable. The right ovary is not well seen and the suspected lesions seen on pelvic ultrasound cannot be evaluated. No evidence of carcinomatosis OSSEOUS STRUCTURES: Degenerative changes in the spine. CT/CT abdomen pelvis w IV con IMPRESSION: 5.2 cm peripherally calcified lesion in the region of the left ovary with suggestion of internal calcified septations favoring this to be a complex cystic lesion when correlated with the recent pelvic ultrasound. However this is not fully characterized on CT and MRI pelvis without and with contrast remains recommended if surgery is not performed. No evidence of carcinomatosis or metastatic disease in the abdomen/pelvis. Fleischner guidelines were followed.
[2023-08-07] MEDS: iohexoL 350 MG/ML 75 ML INFUS..BTL 85 ML IV (11:54)
[2023-08-07] MEDS: Barium Sulfate Oral (Mocha) 450 ML ORAL.SUSP 900 ML PO (11:56)
== END 2023-08-07 09:17 | disposition home or self-care (01) ==
LOC: HO.CT 09:16
PROVIDERS: PCP Internal Medicine; Visit Provider Obstetrics & Gynecology
DX: N83.299 Other ovarian cyst, unspecified side (principal)
CPT/HCPCS: 74177; Q9967

== ENCOUNTER 2023-08-21 08:36 | Outpatient (AMB) | payer OTHER, SELFPAY ==
[2023-08-21 08:48] VITALS: BP 134/80; PULSE 89; BMI 40.0
--- NOTE | 2023-08-21 08:48 | MHC.OFFVIS ---
Intake Vital Signs 08/21/23 08:48 Height 5 ft 6 in Weight 247 lb 12.793 oz BMI 40.0 BP 134/80 Blood Pressure Location Rt brachial Position Sitting Pulse 89 Pulse Source Monitor Intake Visit Reasons: Pre-op [facility]/Onc. surgery,?Xarelto holding inst. Pattern Lease Inspector Required: No Recreation Facility Manager: Recreation Facility Manager Present Allergies Ekhagnj-[id number]-[id number] Reductase Inhibitor Allergy (Mild, Verified 08/21/23 08:51) Muscle Pain amoxicillin [AMOXICILLIN] Allergy (Unknown, Verified 08/21/23 08:51) HIVES azithromycin Allergy (Unknown, Verified 08/21/23 08:51) Unknown Sulfa (Sulfonamide Antibiotics) [SULFA (SULFONAMIDE ANTIBIOTICS)] Allergy (Unknown, Verified 08/21/23 08:51) HIVES Medication List - Last Reconciled 08/21/23 by Lulu Gaspar NP-C diltiazem HCl (Cardizem CD) 180 mg PO DAILY rivaroxaban (Xarelto) 20 mg PO DAILY HPI Pre-op [facility]/Onc. surgery,?Xarelto holding inst. HPI Details Candida is a 63-year-old female with past medical history of obesity, hypertension, nonobstructive coronary artery disease, PAT, paroxysmal atrial flutter who presents for follow-up after recent echocardiogram and Holter monitor. Today she reports that she does not feel heart palpitations, shortness of breath or chest discomfort. She walks up to 2 miles daily and says she feels good. No lightheadedness, presyncope, syncope, PND, orthopnea or edema. She is taking Xarelto without any bleeding issues. She reports upcoming total hysterectomy and needs preop clearance. is present. [facility] Medical History Uncontrolled hypertension Cervical mass PAT (paroxysmal atrial tachycardia) CAD (coronary artery disease) A-fib Surgical History H/O oral surgery Hx of cholecystectomy Hx of tonsillectomy Family History Father Heart failure Social History Housing: House Alcohol intake: never Patient Tobacco Use Status: Never used Tobacco e-Cigarette/Vaping Use: Never Used Second Hand Smoke Exposure: No Current occupational status: employed Sexual orientation: Straight/Heterosexual Gender identity: Female Cognitive needs: No Hearing needs: No Vision needs: Yes Female Reproductive History Menstrual Age of Menarche: 11 Review of Systems Const Details: anxiety All systems reviewed & are unremarkable except as noted in HPI and below ENT Denies dizziness Card Denies chest pain, Denies chest pain at rest, Denies chest pain with activity, Denies rapid heart rate, Denies pedal edema, Denies edema, Denies leg edema, Denies lightheadedness, Denies palpitations, Denies dyspnea, Denies dyspnea on exertion and Denies orthopnea Resp Denies cough, Denies dyspnea and Denies dyspnea on exertion GI Denies hematochezia and Denies change in stool character Musc Denies abnormal gait, Denies limited range of motion, Denies muscle cramps, Denies muscle weakness, Denies numbness, Denies radiating pain into limb, Denies stiffness and Denies tingling Neuro Denies abnormal gait, Denies dizziness, Denies numbness and Denies tingling Endo Denies palpitations Physical Exam Vital Signs: Last Vital Signs Pulse 89 08/21/23 08:48 BP 134/80 08/21/23 08:48 BMI result Body Mass Index 40.0 Const General: cooperative, healthy appearing, comfortable and no acute distress Orientation/consciousness: patient oriented x3 Neck Neck: Yes normal visual inspection and Yes no JVD Resp Effort & Inspection: normal respiratory effort Auscultation: clear to auscultation bilaterally, no crackles, no rales, no rhonchi and no wheezes Cardio Jugular venous distension: no JVD Rate: regular rate Rhythm: abnormal rhythm Heart sounds: S1 normal heart sound present, S2 normal heart sound present, no gallops, no murmurs and no rubs Neuro General: patient oriented x3 Extrem General: Yes normal to inspection and No no pedal edema Psych Appearance: grossly normal Mental Status: mental status grossly normal Speech and movement: Normal speech and movement present Office Procedures EKG Details: Today, read by me, atrial flutter with variable AV block, left axis, septal Q-wave which is unchanged from prior, rate 89 [id number], Complete Assessment & Plan Assessment & Plan (1) Paroxysmal atrial flutter: Code(s): I48.92 - Unspecified atrial flutter Plan: History of PAT and more recently paroxysmal atrial flutter. She is being treated with heart rate control. An echocardiogram done 07/21/2023 showed EF 55-60%, left atrium mildly dilated, right atrium moderately dilated, moderate LVH. Holter monitor done 07/21/2023 for 3 days shows atrial fibrillation and atrial flutter with average heart rate 63 with bursts of heart rate up to as high as 153, overall good rate control. She is on diltiazem 180 mg daily. Chads Vasc score of 2. She is on Xarelto 20 mg daily. No bleeding issues reported. EKG done today showing atrial flutter, rate 89. Asymptomatic. Continue current management with rate control. Cardiology follow-up in 2-3 months. Rhythm control can be discussed at that time. (2) A-fib: Code(s): I48.91 - Unspecified atrial fibrillation Plan: AFib and a flutter seen on recent Holter monitor (3) Anticoagulated: Code(s): Z79.01 - watermaster (current) use of anticoagulants Plan: On Xarelto for anticoagulation. (4) Preop cardiovascular exam: Code(s): Z01.810 - Encounter for preprocedural cardiovascular examination Plan: Preop for total hysterectomy on 09/01/[address] Mckeon at [facility]. Patient has a known history of atrial fibrillation/flutter. Recent Holter shows good rate control on diltiazem 180 mg daily. She is on Xarelto for anticoagulation which can be held 48 hours to the procedure and restarted as soon as cleared by surgeon to do so postprocedure. Activity level is greater than 4 Mets with no concerning symptoms. Recent echo shows normal EF, moderate LVH. Blood pressure currently well controlled. Patient may proceed with surgery at a low to intermediate cardiac risk. Plan Time spent on chart review, documentation, interview and assessment Coding Level of Care Code Est Pt Level 4 (42665) Diagnoses Paroxysmal atrial flutter I48.92 A-fib I48.91 Anticoagulated Z79.01 Preop cardiovascular exam Z01.810 CPT Codes EKG - CPT: 64502-Dpjmnouecrshykbal, Complete ([id number]) Time Spent (min) 30
== END 2023-08-21 09:27 | disposition home or self-care (01) ==
PROVIDERS: PCP Internal Medicine; Visit Provider Nurse Practitioner Family
DX: I48.92 Unspecified atrial flutter (principal); I48.91 Unspecified atrial fibrillation; Z79.01 Long term (current) use of anticoagulants; Z01.810 Encounter for preprocedural cardiovascular examination
CPT/HCPCS: 93010; 99214

== ENCOUNTER → 2023-08-21 08:36 | Outpatient (BNVA) | payer OTHER, SELFPAY | PROVIDERS: PCP Internal Medicine; Visit Provider Nurse Practitioner Family | DX: Z01.810 Encounter for preprocedural cardiovascular examination (principal); I48.92 Unspecified atrial flutter; I48.91 Unspecified atrial fibrillation; Z79.01 Long term (current) use of anticoagulants | CPT/HCPCS: 93005 ==

== ENCOUNTER 2023-11-02 08:26 | Outpatient (AMB) | payer OTHER, SELFPAY ==
--- NOTE | 2023-11-02 08:41 | A.OFFVIS_ITS ---
Vital Signs 11/02/23 08:42 Height 5 ft 6 in Weight 246 lb 14.684 oz BMI 39.8 BP 120/80 Blood Pressure Location Lt brachial Position Sitting Pulse 98 Intake Visit Reasons: 2+ f/up per DC Intake Note: Follow-up per Lulu c/o waking up ? palpitations Call Center Dispatcher Required: No Salesperson [employer]: Salesperson [employer] Present Accompanied by: Spouse Allergies Urtapir-HOA-NbK Reductase Inhibitor Allergy (Mild, Verified 08/21/23 08:51) Muscle Pain amoxicillin [AMOXICILLIN] Allergy (Unknown, Verified 08/21/23 08:51) HIVES azithromycin Allergy (Unknown, Verified 08/21/23 08:51) Unknown Sulfa (Sulfonamide Antibiotics) [SULFA (SULFONAMIDE ANTIBIOTICS)] Allergy (Unknown, Verified 08/21/23 08:51) HIVES Medication List - Last Reconciled 11/02/23 by Iam Almeida MD diltiazem HCl CD (Cardizem CD) 180 mg PO DAILY 90 days rivaroxaban (Xarelto) 20 mg PO DAILY HPI Comments Details: Candida comes for follow-up. He remains in atrial flutter by EKG today. She says she occasionally has symptoms of palpitation nighttime but not prolonged fast heart rate. She is very nervous about discussions for management of atrial flutter. She is currently on Cardizem therapy and she says she is resumed his Xarelto since her surgery for more than 4 weeks now. She has had no bleeding issues or neurologic events. She denies any heart failure symptoms. No orthopnea, PND, leg edema. Does continue to have similar symptoms as in the past. The blood pressures been well controlled. She presents and is accompanied by her . [facility] Medical History Uncontrolled hypertension Cervical mass PAT (paroxysmal atrial tachycardia) CAD (coronary artery disease) A-fib Surgical History H/O oral surgery Hx of cholecystectomy Hx of tonsillectomy Family History Father Heart failure Social History Housing: House Alcohol intake: never Patient Tobacco Use Status: Never used Tobacco e-Cigarette/Vaping Use: Never Used Second Hand Smoke Exposure: No Current occupational status: employed Sexual orientation: Straight/Heterosexual Gender identity: Female Cognitive needs: No Hearing needs: No Vision needs: Yes Female Reproductive History Menstrual Age of Menarche: 11 Review of Systems Const Denies chills, Denies fatigue, Denies fever(s), Denies frequent falls, Denies weakness, Denies weight gain and Denies weight loss ENT Denies dizziness Card Denies chest pain, Denies leg edema, Denies lightheadedness, Denies palpitations, Denies dyspnea, Denies dyspnea on exertion, Denies orthopnea and Denies other (loss of consciousness) Resp Denies cough, Denies dyspnea and Denies dyspnea on exertion GI Denies hematochezia and Denies change in stool character Musc Denies abnormal gait, Denies muscle weakness, Denies numbness, Denies radiating pain into limb and Denies tingling Neuro Denies abnormal gait, Denies dizziness, Denies frequent falls, Denies numbness, Denies tingling and Denies weakness Endo Denies fatigue and Denies palpitations Physical Exam Vital Signs: Last Vital Signs Pulse 98 11/02/23 08:42 BP 120/80 11/02/23 08:42 BMI result Body Mass Index 39.8 Const General: cooperative, healthy appearing, comfortable and no acute distress Orientation/consciousness: patient oriented x3 Neck Neck: Yes normal visual inspection and Yes no JVD Resp Effort & Inspection: normal respiratory effort Auscultation: clear to auscultation bilaterally, no crackles, no rales, no rhonchi and no wheezes Cardio Jugular venous distension: no JVD Rate: regular rate Rhythm: abnormal rhythm Heart sounds: S1 normal heart sound present, S2 normal heart sound present, no gallops, no murmurs and no rubs Neuro General: patient oriented x3 Extrem General: Yes normal to inspection and No no pedal edema Psych Appearance: grossly normal Mental Status: mental status grossly normal Speech and movement: Normal speech and movement present Office Procedures EKG Details: EKG shows atrial flutter with variable conduction with right superior axis with nonspecific ST changes [id number], Complete Assessment & Plan Assessment & Plan (1) Atrial flutter: Code(s): I48.92 - Unspecified atrial flutter Category: Medical Plan: Persistent rate control atrial fibrillation with symptoms. She has biatrial enlargement right greater than left. Discussed about management of atrial flutter in details. She is very nervous about any procedures including cardioversion. We discussed the process of pursuing rhythm control approach which in the long run as more beneficial than pursuing rate control approach at her age group. We discussed that maintaining rhythm is not going to take away her need for oral anticoagulation therapy. She was upset about that. Although I I discussed various options including ablation. Given her biatrial enlargement she will most likely require antiarrhythmic drug therapy. Given that she does not have any evidence of significant coronary artery disease would prefer flecainide 100 mg b.i.d. in conjunction with diltiazem to help with maintenance of rhythm. Will set up for synchronized cardioversion next week. She is worried that she would have recurrent atrial flutter in the future. I discussed that this is always a possibility including with ablation therapy. I discussed the process of synchronized cardioversion including risks and benefits. Continue full oral anticoagulation use without interruption till then. This was discussed with her. Management was discussed in details. She was upset but she understood. Will follow up in the clinic after cardioversion. Thank you for allowing me to partake in the care Orders: Orders Cardioversion 11/10/23 I48.19 - Other persistent atrial fibrillation, I48.92 - Unspecified atrial flutter Medications: New flecainide 100 mg PO Q12H 60 tabs 3RF I48.92 - Unspecified atrial flutter Coding Level of Care Code Est Pt Level 4 (32896) Diagnoses Atrial flutter I48.92 CPT Codes EKG - CPT: 87631-Asfffrvzpmpfohvrj, Complete ([id number])
[2023-11-02 08:42] VITALS: BP 120/80; PULSE 98; BMI 39.8
== END 2023-11-02 09:22 | disposition home or self-care (01) ==
PROVIDERS: PCP Internal Medicine; Visit Provider Internal Medicine Cardiovascular Disease
DX: I48.92 Unspecified atrial flutter (principal)
CPT/HCPCS: 93010; 99214

== ENCOUNTER → 2023-11-02 08:26 | Outpatient (BNVA) | payer OTHER, SELFPAY | PROVIDERS: PCP Internal Medicine; Visit Provider Internal Medicine Cardiovascular Disease | DX: I48.92 Unspecified atrial flutter (principal); Z79.01 Long term (current) use of anticoagulants; Z79.899 Other long term (current) drug therapy | CPT/HCPCS: 93005 ==

== ENCOUNTER 2023-11-10 11:13 | Day surgery (SDC) | payer OTHER, SELFPAY ==
--- NOTE | 2023-11-08 13:10 | HO.ANESPROP2 ---
HPI - Anesthesia Eval Consult details Narrative: 63yo F for Cardioversion Xarelto for afib PMFSH Active Problems Active Problems: All Active Problems Atrial flutter (Acute) Preop cardiovascular exam (Acute) Anticoagulated (Acute) A-fib (Acute) Complex cyst of both ovaries (Acute) Atrial flutter with rapid ventricular response (Acute) Postmenopausal bleeding (Acute) Well woman exam (Acute) Diarrhea (Acute) Polyp at cervical os (Acute) Varicose veins of right lower extremity (Acute) Paroxysmal atrial flutter (Acute) Cervical mass (Acute) Encounter for annual routine gynecological examination (Acute) Colonoscopy refused (Acute) Breast lump on right side at 10 o'clock position (Acute) Encounter for general adult medical examination with abnormal findings (Acute) Obesity due to excess calories (Acute) Elevated blood pressure reading (Acute) Breast screening (Acute) PAT (paroxysmal atrial tachycardia) (Acute) CAD (coronary artery disease) (Acute) Past Medical History Medical History (Updated 11/08/23 @ 14:05 by Urszula Lambert RN) Uncontrolled hypertension Cervical mass PAT (paroxysmal atrial tachycardia) CAD (coronary artery disease) A-fib Family History Family History Father Heart failure Surgical History Surgical History (Updated 11/10/23 @ 13:05 by Maddison Justice) History of hysterectomy H/O oral surgery Hx of cholecystectomy Hx of tonsillectomy Social History Social History Housing: House Alcohol intake: never Patient Tobacco Use Status: Never used Tobacco e-Cigarette/Vaping Use: Never Used Second Hand Smoke Exposure: No Current occupational status: employed Sexual orientation: Straight/Heterosexual Gender identity: Female Cognitive needs: No Hearing needs: No Vision needs: Yes Meds Allergies Allergy/AdvReac Type Severity Reaction Status Date / Time amoxicillin [AMOXICILLIN] Allergy Intermediate HIVES Verified 11/10/23 13:05 Sulfa (Sulfonamide Allergy Intermediate HIVES Verified 11/10/23 13:05 Antibiotics) [SULFA (SULFONAMIDE ANTIBIOTICS)] Fqndaao-KIN-HrB Reductase Allergy Mild Muscle Pain Verified 11/10/23 13:05 Inhibitor azithromycin Allergy Unknown Unknown Verified 11/10/23 13:05 Home Medications ?Medication ?Instructions ?Recorded ?Confirmed ?Last Taken ?Type metoprolol succinate 25 mg 25 mg PO DAILY 11/17/23 Unknown History tablet,extended release 24 hr Exam Narrative Narrative: EKG 10/2023 atrial flutter with variable conduction with right superior axis with nonspecific ST changes ECHO 2023 Conclusions: - Normal left ventricular size and systolic function. There is moderately increased left ventricular wall thickness. The visually estimated ejection fraction is between 55-60%. - Normal right ventricular cavity size and systolic function. - The left atrium is mildly dilated. The right atrium is moderately dilated. Assessment and Plan Assessment Anesthesia Assessment: Chart Reviewed
[2023-11-08 14:05] VITALS: BMI 39.9
--- NOTE | 2023-11-10 11:47 | MHC.SHP ---
Pre-Procedural Eval Section A - 24 Hr Update-Section A only Date of Service: 11/10/23 The patient is an INPATIENT: No Changes since office visit: Yes Changes in Medication and Yes Patient answered all questions; No Cold of Flu in the past 2 weeks and No New Medical Problems The patient has been examined within 24 hours of the surgical procedure. The History & Physical has been completed within 30 days and I have reviewed it.: Yes Section B - Complete if H&P > 30 days Chief Complaint: afib Allergies: Allergies Allergy/AdvReac Type Severity Reaction Status Date / Time amoxicillin [AMOXICILLIN] Allergy Intermediate HIVES Verified 11/08/23 14:01 Sulfa (Sulfonamide Allergy Intermediate HIVES Verified 11/08/23 14:01 Antibiotics) [SULFA (SULFONAMIDE ANTIBIOTICS)] Ojjmhew-OYS-NwZ Reductase Allergy Mild Muscle Pain Verified 08/21/23 08:51 Inhibitor azithromycin Allergy Unknown Unknown Verified 08/21/23 08:51 Plan I have reviewed the history and physical and performed a pertinent physical examination on my patient. No changes have occurred unless specified. Time Spent With Patient Time: Total time managing care of this patient today ____ minutes.
[2023-11-10 13:04] VITALS: BMI 39.9
[2023-11-10 13:07] VITALS: BP 147/85; PULSE 88; RESP 16; TEMP 36.2; O2SAT 98
[2023-11-10] MEDS: Lactated Ringers 1,000 ML 100 ML IVCONT (13:22)
[2023-11-10 15:08] VITALS: BP 114/89; PULSE 50; RESP 16; TEMP 36.7; O2SAT 99
--- NOTE | 2023-11-10 15:08 | ECG_ITS ---
Test Reason : S/P CARDIOVERSION Blood Pressure : / mmHG Vent. Rate : 051 BPM Atrial Rate : 051 BPM P-R Int : 188 ms QRS Dur : 090 ms QT Int : 504 ms P-R-T Axes : 052 -22 034 degrees QTc Int : 464 ms Sinus bradycardia with sinus arrhythmia Possible Left atrial enlargement Borderline ECG When compared with ECG of 09-AUG-2019 12:34, No significant change was found Referred By: Iam Almeida Electronically Signed By:IAM ALMEIDA MD
[2023-11-10 15:13] VITALS: BP 107/74; PULSE 53; RESP 15; O2SAT 99
[2023-11-10 15:18] VITALS: BP 129/75; PULSE 56; RESP 22; O2SAT 98
[2023-11-10 15:23] VITALS: BP 121/60; PULSE 53; RESP 16; O2SAT 98
[2023-11-10 15:41] VITALS: BP 127/67; PULSE 53; RESP 15; TEMP 36.4; O2SAT 96
--- NOTE | 2023-11-10 15:41 | HO.CARDIVERS ---
Cardioversion Procedure Note Cardioversion Date of Procedure: 11/10/2023 Ordering Provider: Cely Almeida Performing Provider: Cely Almeida Indication for Procedure: Symptomatic atrial flutter Pre-Op Diagnosis: Same Post-Op Diagnosis: Normal sinus rhythm Performed with Transesophageal Echo: No Consent: Verbal and Written consent was obtained from the patient before starting and after confirming oral anticoagulation use. The patient was made aware of the risk of synchronized cardioversion including benefits and alternatives. Procedure: After consent obtained, cardioversion pads were attached in anteroposterior configuration and the patient was sedated by the anesthesia team. Once adequate sedation achieved, patient was delivered 200 joules of biphasic synchronized energy in anteroposterior configuration. Complications: None Impression: Converted to sinus rhythm Recommendations: 1. Continue flecainide and Cardizem 2. Continue full oral anticoagulation 3. Twelve lead EKG 4. Follow-up in the office after Holter monitor
== END 2023-11-10 15:46 | disposition home or self-care (01) ==
PROVIDERS: PCP Internal Medicine; Visit Provider Internal Medicine Cardiovascular Disease
PROC: 5A2204Z Restoration of Cardiac Rhythm, Single (ICD-10-PCS; principal; 2023-11-10 13:00)
DX: I48.19 Other persistent atrial fibrillation (principal); I48.92 Unspecified atrial flutter; I10 Essential (primary) hypertension; Z79.01 Long term (current) use of anticoagulants; Z79.899 Other long term (current) drug therapy; Z88.1 Allergy status to other antibiotic agents; Z88.2 Allergy status to sulfonamides
CPT/HCPCS: 92960; 93005; J2250; J2704

== ENCOUNTER → 2023-11-10 11:13 | Outpatient (BNV) | payer OTHER, SELFPAY | PROVIDERS: PCP Internal Medicine; Visit Provider Internal Medicine Cardiovascular Disease | DX: I48.92 Unspecified atrial flutter (principal) | CPT/HCPCS: 92960; 93010 ==

== ENCOUNTER 2023-11-14 12:07 | Outpatient (AMB) | payer OTHER, SELFPAY ==
--- NOTE | 2023-11-14 12:46 | AM.OFFVISNUR ---
Intake Intake Visit Reasons: EKG Intake Note: Pt here for EKG S/P CVR Email Marketing Intern Required: No Accompanied by: Spouse Allergies amoxicillin [AMOXICILLIN] Allergy (Intermediate, Verified 11/10/23 13:05) HIVES Sulfa (Sulfonamide Antibiotics) [SULFA (SULFONAMIDE ANTIBIOTICS)] Allergy (Intermediate, Verified 11/10/23 13:05) HIVES Lddfmle-ISC-QrV Reductase Inhibitor Allergy (Mild, Verified 11/10/23 13:05) Muscle Pain azithromycin Allergy (Unknown, Verified 11/10/23 13:05) Unknown Followed by:: Iam Almeida MD Do you need a note to return to daycare/school/sports/work: No Nursing Note EKG completed, EKG Juan Pablo Franco is Atrial Flutter [address] Almeida. Needs another CVR tomorrow. Jasmin Thomas, our flight operations coordinator informed. Order entered. Pt and aware. Pt to take increase flecainide to 150mg bid from 100mg bid. Pt verbalizes understanding and agrees to plan. Office Procedures EKG [id number], Complete Coding Level of Care Code Procedure Only CPT Codes EKG - CPT: 21501-[id number], Complete ([id number]) Time Spent (min) 30 Comment EKG, Medication Reconciliation, Documentation, Education
== END 2023-11-14 12:43 | disposition home or self-care (01) ==
PROVIDERS: PCP Internal Medicine; Visit Provider Internal Medicine Cardiovascular Disease
DX: R94.31 Abnormal electrocardiogram [ECG] [EKG] (principal)
CPT/HCPCS: 93010

== ENCOUNTER → 2023-11-14 12:07 | Outpatient (BNVA) | payer OTHER, SELFPAY | PROVIDERS: PCP Internal Medicine; Visit Provider Internal Medicine Cardiovascular Disease | DX: I48.92 Unspecified atrial flutter (principal); Z79.899 Other long term (current) drug therapy | CPT/HCPCS: 93005; J2704 ==

== ENCOUNTER 2023-11-15 13:21 | Day surgery (SDC) | payer OTHER, SELFPAY ==
[2023-11-15] VITALS (8 sets, daily range): BP systolic 120–166; BP diastolic 62–98; PULSE 45–98; RESP 12–18; TEMP 36.2–36.6; O2SAT 95–98; BMI 40.8
--- NOTE | 2023-11-15 14:04 | P.CONAN_ITS ---
[facility] Active Problems Active Problems: All Active Problems (Updated 11/08/23 @ 14:05 by Urszula Lambert RN) Atrial flutter (Acute) Preop cardiovascular exam (Acute) Anticoagulated (Acute) Complex cyst of both ovaries (Acute) Atrial flutter with rapid ventricular response (Acute) Postmenopausal bleeding (Acute) Well woman exam (Acute) Diarrhea (Acute) Polyp at cervical os (Acute) Varicose veins of right lower extremity (Acute) Paroxysmal atrial flutter (Acute) Encounter for annual routine gynecological examination (Acute) Colonoscopy refused (Acute) Breast lump on right side at 10 o'clock position (Acute) Encounter for general adult medical examination with abnormal findings (Acute) Obesity due to excess calories (Acute) Elevated blood pressure reading (Acute) Breast screening (Acute) A-fib (Acute) Cervical mass (Acute) PAT (paroxysmal atrial tachycardia) (Acute) CAD (coronary artery disease) (Acute) Past Medical History Medical History (Updated 11/08/23 @ 14:05 by Urszula Lambert RN) Uncontrolled hypertension Cervical mass PAT (paroxysmal atrial tachycardia) CAD (coronary artery disease) A-fib Family History Family History Father Heart failure Family history of problems with anesthesia: No Surgical History Surgical History (Updated 11/10/23 @ 13:05 by Maddison Justice) History of hysterectomy H/O oral surgery Hx of cholecystectomy Hx of tonsillectomy History of Problems with Anesthesia: No Social History Social History Housing: House Alcohol intake: never Patient Tobacco Use Status: Never used Tobacco e-Cigarette/Vaping Use: Never Used Second Hand Smoke Exposure: No Use of substances other than those prescribed or required for medical reasons: No Are you DNR?: No Advance Directives: No Advance Directives Information Provided: Yes Current occupational status: employed Sexual orientation: Straight/Heterosexual Gender identity: Female Cognitive needs: No Hearing needs: No Vision needs: Yes Meds Allergies Allergy/AdvReac Type Severity Reaction Status Date / Time amoxicillin [AMOXICILLIN] Allergy Intermediate HIVES Verified 11/10/23 13:05 Sulfa (Sulfonamide Allergy Intermediate HIVES Verified 11/10/23 13:05 Antibiotics) [SULFA (SULFONAMIDE ANTIBIOTICS)] Ltrvsnl-CNM-EhY Reductase Allergy Mild Muscle Pain Verified 11/10/23 13:05 Inhibitor azithromycin Allergy Unknown Unknown Verified 11/10/23 13:05 Exam Height,Weight and Vital Signs: Height 5 ft 6 in Weight 114.759 kg Last Vital Signs Temp 97.8 F 11/15/23 13:35 Pulse 98 11/15/23 13:35 Resp 18 11/15/23 13:35 BP 166/98 H 11/15/23 13:35 Pulse Ox 98 11/15/23 13:35 O2 Del Method Room Air 11/15/23 13:35 Airway Mallampati Class: II (caps front top) TM Dist: >3cm Neck ROM: Full Heart: irreg Lungs: cta Assessment and Plan Assessment Anesthesia Assessment: Anesthesia Plan Discussed and Chart Reviewed Final Anesthetic Review Family History of Problems with Anesthesia: No History of Problems with Anesthesia: No NPO: Yes ASA Class: III Final Preanesthetic Review: No Changes in Pt Med Stat, Meds/Allgs Chart Reviewed and Consent Obtained/Reviewed Patient Risk: Low Procedure Risk: Low Anesthetic Plan Anesthetic Plan: MAC: Disposition: Standard PACU
--- NOTE | 2023-11-15 14:37 | ECG_ITS ---
Test Reason : s/p cardioversion Blood Pressure : / mmHG Vent. Rate : 053 BPM Atrial Rate : 000 BPM P-R Int : 000 ms QRS Dur : 090 ms QT Int : 460 ms P-R-T Axes : 000 -47 002 degrees QTc Int : 431 ms Junctional rhythm with Premature atrial complexes Left anterior fascicular block Possible Anterior infarct , age undetermined Abnormal ECG When compared with ECG of 10-NOV-2023 15:10, Junctional rhythm has replaced Sinus rhythm Referred By: Iam Almeida Electronically Signed By:IAM ALMEIDA MD
--- NOTE | 2023-11-15 14:37 | MHC.SHP ---
Pre-Procedural Eval Section A - 24 Hr Update-Section A only Date of Service: 11/15/23 The patient is an INPATIENT: No Changes since office visit: Yes Changes in Medication and Yes Patient answered all questions; No Cold of Flu in the past 2 weeks and No New Medical Problems The patient has been examined within 24 hours of the surgical procedure. The History & Physical has been completed within 30 days and I have reviewed it.: Yes Section B - Complete if H&P > 30 days Chief Complaint: Unspecified atrial fibrillation Allergies: Allergies Allergy/AdvReac Type Severity Reaction Status Date / Time amoxicillin [AMOXICILLIN] Allergy Intermediate HIVES Verified 11/10/23 13:05 Sulfa (Sulfonamide Allergy Intermediate HIVES Verified 11/10/23 13:05 Antibiotics) [SULFA (SULFONAMIDE ANTIBIOTICS)] Tvkylqr-AXB-UkU Reductase Allergy Mild Muscle Pain Verified 11/10/23 13:05 Inhibitor azithromycin Allergy Unknown Unknown Verified 11/10/23 13:05 Plan I have reviewed the history and physical and performed a pertinent physical examination on my patient. No changes have occurred unless specified. Time Spent With Patient Time: Total time managing care of this patient today ____ minutes.
--- NOTE | 2023-11-15 15:39 | ECG_ITS ---
Test Reason : S/P CARDIOVERSION Blood Pressure : / mmHG Vent. Rate : 051 BPM Atrial Rate : 051 BPM P-R Int : 184 ms QRS Dur : 092 ms QT Int : 494 ms P-R-T Axes : 078 -43 058 degrees QTc Int : 455 ms Sinus bradycardia Left axis deviation Nonspecific T wave abnormality Abnormal ECG When compared with ECG of 15-NOV-2023 15:00, Sinus rhythm has replaced Junctional rhythm Referred By: Iam Almeida Electronically Signed By:IAM ALMEIDA MD
--- NOTE | 2023-11-15 15:50 | HO.CARDIVERS ---
Cardioversion Procedure Note Cardioversion Date of Procedure: 11/15/2023 Ordering Provider: Dr. Almeida Performing Provider: Dr. Almeida Indication for Procedure: Recurrent symptomatic atrial flutter Pre-Op Diagnosis: Same Performed with Transesophageal Echo: No Consent: Verbal and Written consent was obtained from the patient before starting and after confirming oral anticoagulation use. The patient was made aware of the risk of synchronized cardioversion including benefits and alternatives Procedure: After consent obtained, cardioversion pads were attached in anteroposterior configuration and the patient was sedated by the anesthesia team. Once adequate sedation achieved, patient was delivered 200 joules of biphasic synchronized energy in anteroposterior configuration Complications: Patient had suppress sinus node activity with junctional escape rhythm post cardioversion that lasted for about 30 minutes without hemodynamic compromise Impression: Successful conversion to eventual sinus rhythm Recommendations: 1. 12 lead EKG x2 2. Decrease Cardizem CD to 120 mg daily along with flecainide 150 mg b.i.d.. 3. Continue full oral anticoagulation 4. Follow up in the clinic after Holter monitor
== END 2023-11-15 16:20 | disposition home or self-care (01) ==
PROVIDERS: PCP Internal Medicine; Visit Provider Internal Medicine Cardiovascular Disease
PROC: 5A2204Z Restoration of Cardiac Rhythm, Single (ICD-10-PCS; principal; 2023-11-15 15:10)
DX: I48.92 Unspecified atrial flutter (principal); I10 Essential (primary) hypertension; I25.10 Atherosclerotic heart disease of native coronary artery without angina pectoris; I47.10 Supraventricular tachycardia, unspecified; I83.91 Asymptomatic varicose veins of right lower extremity; Z79.01 Long term (current) use of anticoagulants
CPT/HCPCS: 92960; 93005; J2704

== ENCOUNTER → 2023-11-15 13:21 | Outpatient (BNV) | payer OTHER, SELFPAY | PROVIDERS: PCP Internal Medicine; Visit Provider Internal Medicine Cardiovascular Disease | DX: I48.92 Unspecified atrial flutter (principal) | CPT/HCPCS: 92960; 93010 ==

== ENCOUNTER 2023-11-29 12:51 | Outpatient (AMB) | payer OTHER, SELFPAY ==
--- NOTE | 2023-11-29 13:12 | AM.OFFVISNUR ---
Intake Intake Visit Reasons: ekg dx afib low heart rate Allergies amoxicillin [AMOXICILLIN] Allergy (Intermediate, Verified 11/10/23 13:05) HIVES Sulfa (Sulfonamide Antibiotics) [SULFA (SULFONAMIDE ANTIBIOTICS)] Allergy (Intermediate, Verified 11/10/23 13:05) HIVES Hektyab-FZH-CrD Reductase Inhibitor Allergy (Mild, Verified 11/10/23 13:05) Muscle Pain azithromycin Allergy (Unknown, Verified 11/10/23 13:05) Unknown Nursing Note PT IS ON FLECAINIDE 150 MG EKG WAS LEFT ON PROVIDERS DESK FOR REVIEW Office Procedures EKG [id number], Complete Coding CPT Codes EKG - CPT: 67285-Kfczapnpvzrwvjkba, Complete ([id number])
== END 2023-11-29 13:39 | disposition home or self-care (01) ==
PROVIDERS: PCP Internal Medicine; Visit Provider Internal Medicine Cardiovascular Disease
DX: I48.91 Unspecified atrial fibrillation (principal)
CPT/HCPCS: 93010

== ENCOUNTER → 2023-11-29 12:51 | Outpatient (BNVA) | payer OTHER, SELFPAY | PROVIDERS: PCP Internal Medicine; Visit Provider Internal Medicine Cardiovascular Disease | DX: I48.91 Unspecified atrial fibrillation (principal); R00.1 Bradycardia, unspecified | CPT/HCPCS: 93005 ==

== ENCOUNTER 2023-11-30 08:04 | Outpatient (REF) | payer OTHER, SELFPAY ==
[2023-11-30 11:00] LABS: Anion Gap 14 (12-20); Blood Urea Nitrogen 21 mg/dL (9-16); Calcium 9.4 mg/dL (8.4-10.2); Carbon Dioxide 27 mmol/L (22-29); Chloride 107 mmol/L (96-108); Estimated Glomerular Filt Rate > 60; Glucose Random 100 mg/dL (60-115); Potassium 4.5 mmol/L (3.3-5.1); Sodium 143 mmol/L (135-145)
[2023-11-30 11:06] LABS: B Type Natriuretic Peptide 844 pg/mL (<100)
== END 2023-11-30 08:05 | disposition home or self-care (01) ==
LOC: HO.HMGCLDS 08:04
PROVIDERS: PCP Internal Medicine; Visit Provider Internal Medicine Cardiovascular Disease
DX: I48.92 Unspecified atrial flutter (principal)
CPT/HCPCS: 36415; 80048; 83880

== ENCOUNTER 2023-12-08 08:16 | Outpatient (REF) | payer OTHER, SELFPAY ==
[2023-12-08 11:18] LABS: Anion Gap 12 (12-20); Blood Urea Nitrogen 15 mg/dL (9-16); Calcium 10.1 mg/dL (8.4-10.2); Carbon Dioxide 30 mmol/L (22-29); Chloride 106 mmol/L (96-108); Estimated Glomerular Filt Rate 52; Glucose Random 93 mg/dL (60-115); Potassium 3.9 mmol/L (3.3-5.1); Sodium 144 mmol/L (135-145)
[2023-12-08 11:19] LABS: B Type Natriuretic Peptide 1076 pg/mL (<100)
== END 2023-12-08 08:17 | disposition home or self-care (01) ==
LOC: HO.LAB 08:16
PROVIDERS: Visit Provider Internal Medicine Cardiovascular Disease
DX: I48.92 Unspecified atrial flutter (principal); R00.1 Bradycardia, unspecified
CPT/HCPCS: 36415; 80048; 83880; 93005

== ENCOUNTER 2023-12-08 08:25 | Outpatient (AMB) | payer OTHER, SELFPAY ==
--- NOTE | 2023-12-08 08:42 | A.OFFVIS_ITS ---
Vital Signs 12/08/23 08:43 Height 5 ft 6 in Weight 246 lb 14.684 oz BMI 39.8 BP 128/62 Blood Pressure Location Lt brachial Position Sitting Pulse 41 L Pulse Source Monitor Intake Visit Reasons: Follow up post cardioversion Allergies amoxicillin [AMOXICILLIN] Allergy (Intermediate, Verified 11/10/23 13:05) HIVES Sulfa (Sulfonamide Antibiotics) [SULFA (SULFONAMIDE ANTIBIOTICS)] Allergy (Intermediate, Verified 11/10/23 13:05) HIVES Rdhfceh-LTR-VaT Reductase Inhibitor Allergy (Mild, Verified 11/10/23 13:05) Muscle Pain azithromycin Allergy (Unknown, Verified 11/10/23 13:05) Unknown Medication List - Last Reconciled 12/11/23 by Lulu Gaspar NP-C amiodarone 400 mg PO BID amiodarone 200 mg PO DAILY furosemide 20 mg PO DAILY rivaroxaban (Xarelto) 20 mg PO DAILY 90 days HPI HPI Follow up post cardioversion: Details: Candida is a 63-year-old female with past medical history of obesity, hypertension, nonobstructive coronary artery disease, PAT, paroxysmal atrial flutter, persistent atrial fibrillation with cardioversions on 11/09 and 11/15/2023. She was then put on flecainide with recurrent atrial fibrillation again. She was put on amiodarone and repeat cardioversion planned for next week. Today she presents for follow-up. Today she reports that she is generally feeling well. She does not feel the heart palpitations like she has in the past. She has no shortness of breath or chest discomfort. She is noticing some fatigue. She has been doing only light activities. No llightheadedness, presyncope, syncope, PND, orthopnea or edema. She is taking Xarelto without any bleeding issues. is present. [facility] Medical History Uncontrolled hypertension Cervical mass PAT (paroxysmal atrial tachycardia) CAD (coronary artery disease) A-fib Surgical History History of hysterectomy H/O oral surgery Hx of cholecystectomy Hx of tonsillectomy Family History Father Heart failure Social History Housing: House Alcohol intake: never Patient Tobacco Use Status: Never used Tobacco e-Cigarette/Vaping Use: Never Used Second Hand Smoke Exposure: No Current occupational status: employed Sexual orientation: Straight/Heterosexual Gender identity: Female Cognitive needs: No Hearing needs: No Vision needs: Yes Female Reproductive History Menstrual Age of Menarche: 11 Review of Systems Const All systems reviewed & are unremarkable except as noted in HPI and below Denies weakness ENT Denies dizziness Card Denies chest pain, Denies chest pain with activity, Denies syncope, Denies rapid heart rate, Denies pedal edema, Denies edema, Denies leg edema, Denies lightheadedness, Denies palpitations, Denies dyspnea, Denies dyspnea on exertion and Denies orthopnea Resp Denies cough, Denies dyspnea and Denies dyspnea on exertion GI Denies hematochezia and Denies change in stool character Musc Denies abnormal gait, Denies muscle cramps, Denies muscle weakness, Denies num bness, Denies radiating pain into limb and Denies tingling Neuro Denies abnormal gait, Denies dizziness, Denies syncope, Denies numbness, Denies tingling and Denies weakness Endo Denies palpitations Physical Exam Vital Signs: Last Vital Signs Pulse 41 L 12/08/23 08:43 BP 128/62 12/08/23 08:43 BMI result Body Mass Index 39.8 Const General: cooperative, healthy appearing, comfortable and no acute distress Orientation/consciousness: patient oriented x3 Neck Neck: Yes normal visual inspection Chest Chest palpation & inspection: normal inspection of the chest Resp Effort & Inspection: normal respiratory effort Auscultation: clear to auscultation bilaterally, no crackles, no rales, no rhonchi and no wheezes Cardio Jugular venous distension: no JVD Rate: bradycardic Rhythm: regular rhythm Heart sounds: S1 normal heart sound present, S2 normal heart sound present, no murmurs and no rubs Neuro General: patient oriented x3 Extrem General: Yes normal to inspection, No no pedal edema and No calf tenderness Psych Appearance: grossly normal Mental Status: mental status grossly normal Speech and movement: Normal speech and movement present Office Procedures EKG Details: Today, read by me, sinus bradycardia, right axis deviation, septal Q, rate 41, QTC 430 millisecond [id number], Complete Assessment & Plan Assessment & Plan (1) Atrial flutter: Code(s): I48.92 - Unspecified atrial flutter Category: Medical Plan: History of PAT and then paroxysmal atrial flutter. More recently she has had persistent atrial fibrillation. She underwent cardioversion with Dr. Almeida on 11/09 with conversion to sinus rhythm, followed by recurrent AFib. She had repeat cardioversion on 11/14, with conversion to sinus rhythm and was started on flecainide. She again had recurrent atrial fibrillation and flecainide was stopped and changed to amiodarone. EKG done in the office today showing marked sinus bradycardia, rate 41, symptom of mild fatigue. Cardioversion planned for this coming week canceled. Will have her stop metoprolol. Will have her continue amiodarone 400 mg b.i.d. for 2 more days and then reduce down to 200 mg once daily. Office EKG to be done in 3 days. Continue anticoagulation without interruption. Emergency care if needed for any concerning symptoms. Office visit planned for 1 month, sooner if needed. (2) Sinus bradycardia: Code(s): R00.1 - Bradycardia, unspecified Category: Medical Plan: Marked sinus bradycardia noted on EKG today. Metoprolol being stopped and amiodarone being reduced. Medications: Discontinued metoprolol succinate ER Discontinued Reason: Doctor's Order 25 mg PO DAILY 90 tabs 1RF Coding Level of Care Code Est Pt Level 4 (69028) Diagnoses Atrial flutter I48.92 Sinus bradycardia R00.1 CPT Codes EKG - CPT: 90248-Wycvzjchgaigxrbkj, Complete ([id number]) Time Spent (min) 36
[2023-12-08 08:43] VITALS: BP 128/62; PULSE 41; BMI 39.8
== END 2023-12-08 09:56 | disposition home or self-care (01) ==
PROVIDERS: PCP Internal Medicine; Visit Provider Nurse Practitioner Family
DX: I48.92 Unspecified atrial flutter (principal); R00.1 Bradycardia, unspecified
CPT/HCPCS: 93010; 99214

== ENCOUNTER 2024-01-09 07:02 | Outpatient (REF) | payer OTHER, SELFPAY ==
[2024-01-09 10:12] LABS: MANUAL DIFF FLAG NO
[2024-01-09 10:25] LABS: INTERNATIONAL NORM RATIO 1.4 (0.9-1.1)
[2024-01-09 10:30] LABS: Basophils Absolute Auto 0.1 X10*3/uL (0.0-0.2); Eosinophils Absolute Auto 0.2 X10*3/uL (0.0-0.4); Hematocrit 44.5 % (37.0-47.0); Hemoglobin 14.8 g/dl (12.0-16.0); Imm Gran Abs Auto 0.02 X10*3/uL (0.00-0.03); Imm Gran Pct Auto 0.4 % (0.0-0.4); Lymphocytes Absolute Auto 1.7 X10*3/uL (1.2-4.9); Lymphocytes Percent Auto 33.9 % (20-40); Mean Corpuscular HGB Conc 33.3 g/dl (31.0-35.0); Mean Corpuscular Hemoglobin 30.3 pg (27.0-33.0); Mean Platelet Volume 12.6 fL (9.4-12.3); Monocytes Absolute Auto 0.3 X10*3/uL (0.1-1.2); Monocytes Percent Auto 6.4 % (2-11); Neutrophils Absolute Auto 2.8 x10*3/uL (2.0-8.3); Neutrophils Percent Auto 55.3 % (45-73); Platelet Count 156 X10*3/uL (160-400); Red Blood Count 4.89 X10*6/uL (4.20-5.50); Red Cell Distribution Width 13.2 % (11.0-16.0)
[2024-01-09 10:54] LABS: Anion Gap 14 (12-20); Blood Urea Nitrogen 13 mg/dL (9-16); Carbon Dioxide 27 mmol/L (22-29); Chloride 105 mmol/L (96-108); Potassium 3.6 mmol/L (3.3-5.1); Sodium 142 mmol/L (135-145)
[2024-01-09 10:55] LABS: Calcium 9.6 mg/dL (8.4-10.2); Estimated Glomerular Filt Rate 60; Glucose Random 95 mg/dL (60-115)
== END 2024-01-09 07:03 | disposition home or self-care (01) ==
LOC: HO.HMGCLDS 07:02
PROVIDERS: PCP Internal Medicine; Visit Provider Internal Medicine Cardiovascular Disease
DX: I48.91 Unspecified atrial fibrillation (principal)
CPT/HCPCS: 36415; 80048; 85025; 85610

== ENCOUNTER 2024-01-18 09:36 | Outpatient (AMB) | payer OTHER, SELFPAY ==
[2024-01-18 10:15] VITALS: BP 132/82; PULSE 60; BMI 37.7
--- NOTE | 2024-01-18 10:15 | MHC.OFFVIS ---
Vital Signs 01/18/24 10:15 Height 5 ft 6 in Weight 233 lb 11.04 oz BMI 37.7 BP 132/82 Blood Pressure Location Lt brachial Position Sitting Pulse 60 Intake Visit Reasons: 1m follow up Intake Note: 1 month follow-up with ekg after ablation Allergies amoxicillin [AMOXICILLIN] Allergy (Intermediate, Verified 11/10/23 13:05) HIVES Sulfa (Sulfonamide Antibiotics) [SULFA (SULFONAMIDE ANTIBIOTICS)] Allergy (Intermediate, Verified 11/10/23 13:05) HIVES Cuuvkzb-YQI-XmU Reductase Inhibitor Allergy (Mild, Verified 11/10/23 13:05) Muscle Pain azithromycin Allergy (Unknown, Verified 11/10/23 13:05) Unknown Medication List - Last Reconciled 01/18/24 by Iam Almeida MD amiodarone 200 mg PO DAILY 90 days furosemide 20 mg PO DAILY rivaroxaban (Xarelto) 20 mg PO DAILY 90 days HPI Comments Details: Candida comes for follow-up. Underwent pulmonary vein isolation as well as atrial flutter ablation a few weeks ago. Doing well from that perspective. Has not had any recurrent heart failure symptoms. Has not had any recurrent atrial fibrillation symptoms. She has clinically doing well. She has been also trying to lose weight and is been exercising regularly even prior to undergoing ablation. Denies any prolonged palpitation irregular heartbeat. No lightheadedness, syncope. No chest pain. No bleeding issues or neurologic events. [facility] Medical History (HFpEF) heart failure with preserved ejection fraction Paroxysmal atrial fibrillation Uncontrolled hypertension Cervical mass PAT (paroxysmal atrial tachycardia) CAD (coronary artery disease) A-fib Surgical History History of hysterectomy H/O oral surgery Hx of cholecystectomy Hx of tonsillectomy Family History Father Heart failure Social History Housing: House Alcohol intake: never Patient Tobacco Use Status: Never used Tobacco e-Cigarette/Vaping Use: Never Used Second Hand Smoke Exposure: No Current occupational status: employed Sexual orientation: Straight/Heterosexual Gender identity: Female Cognitive needs: No Hearing needs: No Vision needs: Yes Female Reproductive History Menstrual Age of Menarche: 11 Review of Systems Const Denies chills, Denies fatigue, Denies fever(s), Denies frequent falls, Denies weakness, Denies weight gain and Denies weight loss ENT Denies dizziness Card Denies chest pain, Denies leg edema, Denies lightheadedness, Denies palpitations, Denies dyspnea, Denies dyspnea on exertion, Denies orthopnea and Denies other (loss of consciousness) Resp Denies cough, Denies dyspnea and Denies dyspnea on exertion GI Denies hematochezia and Denies change in stool character Musc Denies abnormal gait, Denies muscle weakness, Denies numbness, Denies radiating pain into limb and Denies tingling Neuro Denies abnormal gait, Denies dizziness, Denies frequent falls, Denies numbness, Denies tingling and Denies weakness Endo Denies fatigue and Denies palpitations Physical Exam Vital Signs: Last Vital Signs Pulse 60 01/18/24 10:15 BP 132/82 01/18/24 10:15 BMI result Body Mass Index 37.7 Const General: cooperative, healthy appearing, comfortable and no acute distress Orientation/consciousness: patient oriented x3 Neck Neck: Yes normal visual inspection Chest Chest palpation & inspection: normal inspection of the chest Resp Effort & Inspection: normal respiratory effort Auscultation: clear to auscultation bilaterally, no crackles, no rales, no rhonchi and no wheezes Cardio Jugular venous distension: no JVD Rate: regular rate Rhythm: regular rhythm Heart sounds: S1 normal heart sound present, S2 normal heart sound present, no murmurs and no rubs Neuro General: patient oriented x3 Extrem General: Yes normal to inspection, No no clubbing, cyanosis or edema, No no pedal edema and No calf tenderness Psych Appearance: grossly normal Mental Status: mental status grossly normal Speech and movement: Normal speech and movement present Office Procedures EKG Details: EKG shows junctional rhythm with retrograde conduction with poor R-wave progression most likely lead placement [id number], Complete Assessment & Plan Assessment & Plan (1) Paroxysmal atrial fibrillation: Code(s): I48.0 - Paroxysmal atrial fibrillation Category: Medical Plan: Paroxysmal atrial fibrillation/flutter status post ablation. Currently having a junctional rhythm. However she has had significant improvement in overall heart failure symptoms and feels well. Most likely suggestive underlying sinoatrial dwight dysfunction. Will follow up with Holter monitor in near future. Continue rhythm control approach which has her significantly. Will reduce amiodarone 200 mg daily given junctional bradycardia. Follow-up Holter monitor in about a month's time. If she develops any other symptoms of slow heart rate she is advised to call my office. If she develops recurrent atrial fibrillation she is advised to call my office. Will workup for sleep apnea. Will follow up in 3 months time. Continue full oral anticoagulation for life (2) (HFpEF) heart failure with preserved ejection fraction: Code(s): I50.30 - Unspecified diastolic (congestive) heart failure Category: Medical Plan: Heart failure preserved ejection fraction, clinically euvolemic and well compensated. Recheck BNP which I am expecting to have improved significantly. However AFib BNP still elevated will continue Lasix therapy. Heart failure management discussed. She has done very well with rhythm control approach will continue pursue rhythm control approach. Continue aggressive weight loss program. Workup for sleep apnea as above. Will follow up in the clinic in 3 months time, sooner p.r.n.. Thank you for allowing me to partake in her care Orders: Orders ECG 3 day holter monitor 1 Month I48.0 - Paroxysmal atrial fibrillation Basic Metabolic Panel Today I50.30 - Unspecified diastolic (congestive) heart failure B Type Natriuretic Peptide Today I50.30 - Unspecified diastolic (congestive) heart failure RT home sleep study Today I48.0 - Paroxysmal atrial fibrillation, R40.0 - Somnolence Medications: Changed From amiodarone 200 mg PO DAILY 90 days 90 tabs 1RF I50.30 - Unspecified diastolic (congestive) heart failure To amiodarone 100 mg (1/2 x 200 mg) PO DAILY 90 days 90 tabs 1RF I50.30 - Unspecified diastolic (congestive) heart failure Coding Level of Care Code Est Pt Level 4 (58993) Diagnoses Paroxysmal atrial fibrillation I48.0 (HFpEF) heart failure with preserved ejection fraction I50.30 CPT Codes EKG - CPT: 01846-Xzqydppqbckuhkqso, Complete ([id number])
== END 2024-01-18 10:45 | disposition home or self-care (01) ==
PROVIDERS: PCP Internal Medicine; Visit Provider Internal Medicine Cardiovascular Disease
DX: I48.0 Paroxysmal atrial fibrillation (principal); I50.30 Unspecified diastolic (congestive) heart failure
CPT/HCPCS: 93010; 99214

== ENCOUNTER 2024-01-18 09:36 | Outpatient (REF) | payer OTHER, SELFPAY ==
[2024-01-18 12:16] LABS: B Type Natriuretic Peptide 188 pg/mL (<100)
[2024-01-18 12:27] LABS: Anion Gap 13 (12-20); Blood Urea Nitrogen 12 mg/dL (9-16); Calcium 9.4 mg/dL (8.4-10.2); Carbon Dioxide 28 mmol/L (22-29); Chloride 106 mmol/L (96-108); Estimated Glomerular Filt Rate > 60; Glucose Random 98 mg/dL (60-115); Potassium 3.7 mmol/L (3.3-5.1); Sodium 143 mmol/L (135-145)
== END 2024-01-18 09:37 | disposition home or self-care (01) ==
LOC: HO.LAB 09:36
PROVIDERS: PCP Internal Medicine; Visit Provider Internal Medicine Cardiovascular Disease
DX: I48.0 Paroxysmal atrial fibrillation (principal); I50.30 Unspecified diastolic (congestive) heart failure
CPT/HCPCS: 36415; 80048; 83880; 93005

== ENCOUNTER → 2024-02-19 07:20 | Outpatient (REF) | payer OTHER, SELFPAY ==
--- NOTE | 2024-02-19 07:24 | HM_ITS ---
* Total monitoring time 3 days. * Underlying rhythm is sinus with an average rate of 49/Min. * About 85% of the time, rate < 60/Min. * Overnight episodes of junctional escape rhythm at about 40/Min. * Rare supraventricular ectopy. * Rare ventricular ectopy. * No patient markers or diary events. MTDD
== END ==
LOC: HO.CARD 07:20
PROVIDERS: PCP Internal Medicine; Visit Provider Internal Medicine Cardiovascular Disease
DX: I48.0 Paroxysmal atrial fibrillation (principal)
CPT/HCPCS: 93242

== ENCOUNTER → 2024-02-19 07:24 | Outpatient (BNV) | payer OTHER, SELFPAY | PROVIDERS: PCP Internal Medicine; Visit Provider Internal Medicine | DX: R00.1 Bradycardia, unspecified (principal) | CPT/HCPCS: 93244 ==

== ENCOUNTER 2024-02-21 09:32 | Outpatient (AMB) | payer OTHER, SELFPAY ==
--- NOTE | 2024-02-21 09:34 | MHC.PC.OV ---
Vital Signs 02/21/24 09:36 Height 5 ft 6 in Weight 230 lb BMI 37.1 BP 146/94 H Blood Pressure Location Rt brachial Position Sitting Pulse 73 Pulse Source Pulse Oximeter Pulse Oximetry (%) 93 Oxygen Delivery Method Room Air Intake Visit Reasons: Annual PE - see comments Allergies amoxicillin [AMOXICILLIN] Allergy (Intermediate, Verified 02/21/24 09:37) HIVES Sulfa (Sulfonamide Antibiotics) [SULFA (SULFONAMIDE ANTIBIOTICS)] Allergy (Intermediate, Verified 02/21/24 09:37) HIVES [id number] Reductase Inhibitor Allergy (Mild, Verified 02/21/24 09:37) Muscle Pain azithromycin Allergy (Unknown, Verified 02/21/24 09:37) Unknown Medication List - Last Reconciled 02/21/24 by Michelle Sarmiento MD amiodarone 100 mg (1/2 x 200 mg) PO DAILY 90 days furosemide 20 mg PO DAILY rivaroxaban (Xarelto) 20 mg PO DAILY 90 days Tobacco use date assessed: 02/21/24 Fall risk assessment: No Falls in past year Last assessed Fall Risk: 02/21/24 Dental Screening Dental Screen Date: 02/21/24 Did you have a dental visit in the last 12 months?: Yes Did you have a dental problem in the last 6 months where you did not have access to dental care?: No Was dental information given to patient?: Patient has dentist HPI Annual PE - see comments HPI Details Patient is 59 came in today for physical exam Patient hysterectomy in August secondary to complex ovarian cyst Patient says that report came back benign Cervix was removed as well She usually sees Dr. 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 And he is also seeing window treatment installer at [facility] Patient will be having another ablation procedure due to her anatomy 1 area was not done previously Lab order placed to be done fasting Patient says that she has a family history of hemochromatosis and would like to be checked that Blood pressure is slightly elevated today, patient is nervous to be here BMI is elevated patient is trying to lose weight Breast exam declined , colonoscopy declined Follow-up 1 year [facility] [place] Medical History (HFpEF) heart failure with preserved ejection fraction Paroxysmal atrial fibrillation Uncontrolled hypertension Cervical mass PAT (paroxysmal atrial tachycardia) CAD (coronary artery disease) A-fib Surgical History History of hysterectomy H/O oral surgery Hx of cholecystectomy Hx of tonsillectomy Family History Father Heart failure Social History Housing: House Alcohol intake: never Patient Tobacco Use Status: Never used Tobacco e-Cigarette/Vaping Use: Never Used Second Hand Smoke Exposure: No service: No Current occupational status: employed Sexual orientation: Straight/Heterosexual Gender identity: Female Cognitive needs: No Hearing needs: No Vision needs: Yes Female Reproductive History Menstrual Age of Menarche: 11 Questionnaire PHQ-9 Over the last 2 weeks, how often have you been bothered by any of the following problems? 1. Little interest or pleasure in doing things: not at all 2. Feeling down, depressed, or hopeless: not at all 3. Trouble falling or staying asleep, or sleeping too much: not at all 4. Feeling tired or having little energy: not at all 5. Poor appetite or overeating: not at all 6. Feeling bad about yourself - or that you are a failure or have let yourself or your family down: not at all 7. Trouble concentrating on things, such as reading the newspaper or watching television: not at all 8. Moving or speaking so slowly that other people could have noticed. Or the opposite - being so fidgety or restless that you have been moving around a lot more than usual: not at all 9. Thoughts that you would be better off or of hurting yourself in some way: not at all Total score: 0 Depression Screening Interpretation: Negative Depression Screening Done: Yes 42229 - PHQ-9 Billing: Yes Source: Developed by Drs. Jovanny Hernandez, Elly Costa, Jurgen Guillen and colleagues, with an educational marva from [employer]. Thrive Questionnaire Date Thrive assessed: 02/21/24 I am a: Patient What is your living situation today?: I have a steady place to live Within the past 12 months, did the food you bought not last and you didn't have the money to get more?: Never true Within the past 12 months, did you worry whether your food would run out before you got money to buy more?: Never true Do you have trouble paying for medicines?: No Do you have trouble getting transportation to medical appointments?: No Do you have trouble paying your heating and electricity bill?: No Do you have trouble taking care of your child, family member or friend?: No Do you have trouble with day-to-day activities such as bathing, preparing meals, shopping, managing finances, etc.?: No Are you currently unemployed and looking for a job?: No Are you interested in more education?: No Please select the resources that you would like help with: None Currently or been in a relationship where the following occur: No concerns reported THRIVE Score: 0 AUDIT C Alcohol Use Questionnaire (AUDIT-C) 1. How often do you have a drink containing alcohol?: Never 3. How often do you have six or more drinks on one occasion?: Never Total Score: 0 Score Reviewed/Action Taken: Yes DARNELL-7 AMB Questionnaire DARNELL-7 Date DARNELL - 7 assessed: 02/21/24 Feeling nervous, anxious, or on edge: 1 = Several days Not being able to stop or control worryin = Several days Worrying too much about different things: 0 = Not at all Trouble relaxin = Not at all Being so restless that it is hard to sit still: 0 = Not at all Becoming easily annoyed or irritable: 0 = Not at all Feeling afraid as if something awful might happen: 1 = Several days Total DARNELL-7 score (0-4 normal; 5-9 mild; 10-14 moderate; 15-21 severe): 3 Source: Developed by Drs. Jovanny Hernandez, Elly Costa, Jurgen Guillen and colleagues, with an educational marva from [employer]. DARNELL-7 Assessment Billing DARNELL-7 Assessment Tool: DARNELL-7 Assessment [id number] Review of Systems Const Denies chills, Denies fever(s) and Denies headache(s) Eyes Denies blurry vision ENT Denies headache(s), Denies nasal discharge, Denies nasal obstruction, Denies odynophagia and Denies sinus pain Card Denies chest pain at rest and Denies chest pain with activity Resp Denies cough and Denies hemoptysis GI Denies diarrhea, Denies odynophagia, Denies vomiting and Denies hematemesis Reports as per HPI Musc Denies abnormal gait Skin/Breast Reports as per HPI Neuro Denies Neuro-related abnormal movements, Denies Abnormal speech present, Denies abnormal gait, Denies headache(s) and Denies Sensory deficit (Neuro) Psych Denies mood swings and Denies paranoia Endo Reports as per HPI Vance/Lymph Reports as per HPI Aller/Immun Reports as per HPI Physical exam (Primary Care) Vital Signs: Last Vital Signs Pulse 73 02/21/24 09:36 BP 146/94 H 02/21/24 09:36 Pulse Ox 93 02/21/24 09:36 Oxygen Delivery Method Room Air 02/21/24 09:36 BMI result Body Mass Index 37.1 Tobacco/Smoking Status: Tobacco use Status Tobacco use date assessed 02/21/24 02/21/24 09:41 Patient Tobacco Use Status Never used Tobacco 02/21/24 09:41 e-Cigarette/Vaping Use Never Used 02/21/24 09:41 PHQ-9: PHQ-9 Score PHQ-9: Total score 0 02/21/24 09:52 Depression Screening Interpretation: Negative Thrive Assessment: Date of Thrive Assessment Date Thrive assessed 02/21/24 02/21/24 09:41 Currently or been in a relationship where the following occur: No concerns reported Const General: cooperative, comfortable and no acute distress Orientation/consciousness: patient oriented x3 HENMT Head: Yes normocephalic and Yes atraumatic Eyes General: appearance normal, both eyes and all related structures Pupils: Equal, round and reactive pupils present EOM: EOMs intact bilaterally Neck Neck: Yes supple and No lymphadenopathy Thyroid: Thyroid normal Lymphatic: no lymphadenopathy noted Resp Effort & Inspection: normal respiratory effort and able to speak in complete sentences Auscultation: clear to auscultation bilaterally Cardio Heart sounds: S1 normal heart sound present and S2 normal heart sound present GI Palpation (GI): Soft to palpation and nontender Auscultation: normal bowel sounds General: Yes no CVA tenderness Back/Spine/Pelvis Back: no CVA tenderness Skin General skin exam: elasticity normal and turgor normal Neuro General: patient oriented x3 and gait normal Cranial nerves: Yes Equal, round and reactive pupils present Speech: No Abnormal speech present Sensory Exam: No Sensory deficit (Neuro) Coordination: tandem gait normal and Romberg test negative Extrem General: Yes normal exam except as noted and No edema Assessment and Plan Assessment & Plan (1) CAD (coronary artery disease): Comment: follows w/HCS Code(s): I25.10 - Atherosclerotic heart disease of [place] coronary artery without angina pectoris Qualifiers: Associated angina: without angina Coronary Disease-Associated Artery/Lesion type: [place] artery [place] vs. transplanted heart: [place] heart Qualified Code(s): I25.10 - Atherosclerotic heart disease of [place] coronary artery without angina pectoris (2) Obesity due to excess calories: Code(s): E66.09 - Other obesity due to excess calories Qualifiers: Body mass index: BMI 37.0-37.9 Obesity classification: adult class 2 (BMI 35 - 39.9) Serious obesity comorbidity presence: with serious comorbidity Qualified Code(s): E66.01 - Morbid (severe) obesity due to excess calories; Z68.37 - Body mass index [BMI] 37.0-37.9, adult (3) Encounter for general adult medical examination with abnormal findings: Code(s): Z00.01 - Encounter for general adult medical examination with abnormal findings (4) Colonoscopy refused: Code(s): Z53.20 - Procedure and treatment not carried out because of patient's decision for unspecified reasons (5) Varicose veins of right lower extremity: Code(s): I83.91 - Asymptomatic varicose veins of right lower extremity Qualifiers: Varicose vein complication: unspecified Qualified Code(s): I83.91 - Asymptomatic varicose veins of right lower extremity (6) Paroxysmal atrial fibrillation: Code(s): I48.0 - Paroxysmal atrial fibrillation (7) (HFpEF) heart failure with preserved ejection fraction: Code(s): I50.30 - Unspecified diastolic (congestive) heart failure Qualifiers: Heart failure chronicity: chronic Qualified Code(s): I50.32 - Chronic diastolic (congestive) heart failure (8) Family history of hemochromatosis: Code(s): Z83.49 - Family history of other endocrine, nutritional and metabolic diseases Plan Patient is 59 came in today for physical exam Patient hysterectomy in August secondary to complex ovarian cyst Patient says that report came back benign Cervix was removed as well She usually sees Dr. 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 And he is also seeing window treatment installer at [facility] Patient will be having another ablation procedure due to her anatomy 1 area was not done previously Lab order placed to be done fasting Patient says that she has a family history of hemochromatosis and would like to be checked that Blood pressure is slightly elevated today, patient is nervous to be here BMI is elevated patient is trying to lose weight Breast exam declined , colonoscopy declined Follow-up 1 year Orders: Orders Complete Blood Count Auto Diff Today E66.09 - Other obesity due to excess calories, I25.10 - Atherosclerotic heart disease of [place] coronary artery without angina pectoris, I48.0 - Paroxysmal atrial fibrillation, I50.30 - Unspecified diastolic (congestive) heart failure, I83.91 - Asymptomatic varicose veins of right lower extremity, Z00.01 - Encounter for general adult medical examination with abnormal findings, Z83.49 - Family history of other endocrine, nutritional and metabolic diseases Comprehensive [place]. Panel Fast Today E66.09 - Other obesity due to excess calories, I25.10 - Atherosclerotic heart disease of [place] coronary artery without angina pectoris, I48.0 - Paroxysmal atrial fibrillation, I50.30 - Unspecified diastolic (congestive) heart failure, I83.91 - Asymptomatic varicose veins of right lower extremity, Z00.01 - Encounter for general adult medical examination with abnormal findings, Z83.49 - Family history of other endocrine, nutritional and metabolic diseases TSH reflex Free T4 Today E66.09 - Other obesity due to excess calories, I25.10 - Atherosclerotic heart disease of [place] coronary artery without angina pectoris, I48.0 - Paroxysmal atrial fibrillation, I50.30 - Unspecified diastolic (congestive) heart failure, I83.91 - Asymptomatic varicose veins of right lower extremity, Z00.01 - Encounter for general adult medical examination with abnormal findings, Z83.49 - Family history of other endocrine, nutritional and metabolic diseases Vitamin D 25-OH (D2 and D3) Today E66.09 - Other obesity due to excess calories, I25.10 - Atherosclerotic heart disease of [place] coronary artery without angina pectoris, I48.0 - Paroxysmal atrial fibrillation, I50.30 - Unspecified diastolic (congestive) heart failure, I83.91 - Asymptomatic varicose veins of right lower extremity, Z00.01 - Encounter for general adult medical examination with abnormal findings, Z83.49 - Family history of other endocrine, nutritional and metabolic diseases Lipid Panel Today E66.09 - Other obesity due to excess calories, I25.10 - Atherosclerotic heart disease of [place] coronary artery without angina pectoris, I48.0 - Paroxysmal atrial fibrillation, I50.30 - Unspecified diastolic (congestive) heart failure, I83.91 - Asymptomatic varicose veins of right lower extremity, Z00.01 - Encounter for general adult medical examination with abnormal findings, Z83.49 - Family history of other endocrine, nutritional and metabolic diseases DNA Analysis Hemochromatosis Today E66.09 - Other obesity due to excess calories, I25.10 - Atherosclerotic heart disease of [place] coronary artery without angina pectoris, I48.0 - Paroxysmal atrial fibrillation, I50.30 - Unspecified diastolic (congestive) heart failure, I83.91 - Asymptomatic varicose veins of right lower extremity, Z00.01 - Encounter for general adult medical examination with abnormal findings, Z83.49 - Family history of other endocrine, nutritional and metabolic diseases Coding Level of Care Code Est Pt Level 3 (43072) Est Pt Prev Care 40-64y(75849) Diagnoses Coronary artery disease involving [place] coronary artery of [place] heart without angina pectoris I25.10 Associated angina: without angina Coronary Disease-Associated Artery/Lesion type: [place] artery [place] vs. transplanted heart: [place] heart Class 2 severe obesity due to excess calories with serious comorbidity and body mass index (BMI) of 37.0 to 37.9 in adult E66.01; Z68.37 Body mass index: BMI 37.0-37.9 Obesity classification: adult class 2 (BMI 35 - 39.9) Serious obesity comorbidity presence: with serious comorbidity Encounter for general adult medical examination with abnormal findings Z00.01 Colonoscopy refused Z53.20 Varicose veins of right lower extremity, unspecified whether complicated I83.91 Varicose vein complication: unspecified Paroxysmal atrial fibrillation I48.0 Chronic heart failure with preserved ejection fraction I50.32 Heart failure chronicity: chronic Family history of hemochromatosis Z83.49 Additional Codes DARNELL-7 Assessment Billing - DARNELL-7 Assessment Tool: DARNELL-7 Assessment [id number] ([id number])
[2024-02-21 09:36] VITALS: BP 146/94; PULSE 73; O2SAT 93; BMI 37.1
== END 2024-02-21 10:09 | disposition home or self-care (01) ==
PROVIDERS: PCP Internal Medicine; Visit Provider Internal Medicine
DX: Z00.00 Encounter for general adult medical examination without abnormal findings (principal); E66.01 Morbid (severe) obesity due to excess calories; Z68.37 Body mass index [BMI] 37.0-37.9, adult; I48.0 Paroxysmal atrial fibrillation; I50.32 Chronic diastolic (congestive) heart failure; I25.10 Atherosclerotic heart disease of native coronary artery without angina pectoris; Z53.20 Procedure and treatment not carried out because of patient's decision for unspecified reasons; I83.91 Asymptomatic varicose veins of right lower extremity; Z83.49 Family history of other endocrine, nutritional and metabolic diseases
CPT/HCPCS: 99396

== ENCOUNTER 2024-03-12 06:27 | Outpatient (REF) | payer OTHER, SELFPAY ==
[2024-03-12 10:25] LABS: MANUAL DIFF FLAG NO
[2024-03-12 10:30] LABS: Basophils Absolute Auto 0.1 X10*3/uL (0.0-0.2); Basophils Percent Auto 1.2 % (0-2); Eosinophils Absolute Auto 0.1 X10*3/uL (0.0-0.4); Eosinophils Percent Auto 2.2 % (0-4); Hematocrit 42.9 % (37.0-47.0); Hemoglobin 14.4 g/dl (12.0-16.0); Imm Gran Abs Auto 0.01 X10*3/uL (0.00-0.03); Imm Gran Pct Auto 0.2 % (0.0-0.4); Lymphocytes Absolute Auto 1.9 X10*3/uL (1.2-4.9); Lymphocytes Percent Auto 37.3 % (20-40); Mean Corpuscular HGB Conc 33.6 g/dl (31.0-35.0); Mean Corpuscular Hemoglobin 31.2 pg (27.0-33.0); Mean Corpuscular Volume 92.9 fL (80.0-98.0); Mean Platelet Volume 12.6 fL (9.4-12.3); Monocytes Absolute Auto 0.3 X10*3/uL (0.1-1.2); Neutrophils Absolute Auto 2.6 x10*3/uL (2.0-8.3); Neutrophils Percent Auto 53.1 % (45-73); Platelet Count 171 X10*3/uL (160-400); Red Blood Count 4.62 X10*6/uL (4.20-5.50); Red Cell Distribution Width 14.5 % (11.0-16.0)
[2024-03-12 11:18] LABS: Alanine Aminotransferase 19 U/L (0-31); Albumin Level 4.3 g/dL (3.5-5.0); Alkaline Phosphatase 81 U/L (39-117); Anion Gap 13 (12-20); Aspartate Amino Transferase 23 U/L (5-31); Bilirubin Total 0.9 mg/dL (0.0-1.0); Blood Urea Nitrogen 14 mg/dL (9-16); Calcium 9.8 mg/dL (8.4-10.2); Carbon Dioxide 28 mmol/L (22-29); Chloride 106 mmol/L (96-108); Cholesterol 213 mg/dL (<200); Estimated Glomerular Filt Rate 53; Glucose Fasting 100 mg/dL (60-99); HDL Cholesterol 46 mg/dL (>40); LDL Cholesterol Calculated 137 mg/dL (<100); Sodium 143 mmol/L (135-145); TSH reflex Free T4 2.58 uIU/mL (0.32-4.0); Total Protein 7.1 g/dL (6.5-8.0); Triglycerides 150 mg/dL (<150)
[2024-03-19 13:38] LABS: Vitamin D 25-OH, D2 <4 ng/mL; Vitamin D 25-OH, D3 32 ng/mL; Vitamin D 25-OH, Total 32 ng/mL (30-100)
== END 2024-03-12 06:28 | disposition home or self-care (01) ==
LOC: HO.HMGCLDS 06:27
PROVIDERS: PCP Internal Medicine; Referring Provider Internal Medicine Cardiovascular Disease; Visit Provider Internal Medicine
DX: Z00.01 Encounter for general adult medical examination with abnormal findings (principal); I48.91 Unspecified atrial fibrillation; I25.10 Atherosclerotic heart disease of native coronary artery without angina pectoris; I50.30 Unspecified diastolic (congestive) heart failure; I48.0 Paroxysmal atrial fibrillation; I83.91 Asymptomatic varicose veins of right lower extremity; E66.09 Other obesity due to excess calories; Z83.49 Family history of other endocrine, nutritional and metabolic diseases
CPT/HCPCS: 36415; 80053; 80061; 81256; 82306; 84443; 85025

== ENCOUNTER → 2024-03-13 12:53 | Outpatient (REF) | payer OTHER, SELFPAY | LOC: HO.SL 12:53 | PROVIDERS: PCP Internal Medicine; Visit Provider Internal Medicine Cardiovascular Disease | DX: R40.0 Somnolence (principal); I48.0 Paroxysmal atrial fibrillation; R06.83 Snoring | CPT/HCPCS: 95806; 95810 ==

== ENCOUNTER → 2024-03-13 13:09 | Outpatient (BNV) | payer OTHER, SELFPAY | PROVIDERS: PCP Internal Medicine; Visit Provider Psychiatry & Neurology Neurology | DX: R06.83 Snoring (principal); R40.0 Somnolence | CPT/HCPCS: 95806 ==

== ENCOUNTER 2024-03-26 06:48 | Outpatient (REF) | payer OTHER, SELFPAY ==
[2024-03-26 10:53] LABS: Ferritin 189 ng/mL (10-250)
== END 2024-03-26 06:49 | disposition home or self-care (01) ==
LOC: HO.HMGCLDS 06:48
PROVIDERS: PCP Internal Medicine; Visit Provider Internal Medicine
DX: Z14.8 Genetic carrier of other disease (principal)
CPT/HCPCS: 36415; 82728

== ENCOUNTER 2024-04-15 08:15 | Outpatient (REF) | payer OTHER, SELFPAY ==
--- NOTE | ~2024-04-15 | MM_ITS ---
EXAMINATION: MM SCREENING DIGITAL BREAST TOMOSYNTHESIS, BILATERAL CLINICAL INFORMATION: Screening. Asymptomatic. COMPARISON: Mammography: Comparison is made with available priors TECHNIQUE: Digital breast mammography with tomosynthesis is performed in both the craniocaudal and mediolateral oblique views along with computer-aided detection (CAD). FINDINGS: There are scattered areas of fibroglandular density (ACR BI-RADS breast composition Category b). There are no significant masses, abnormal calcifications, or other abnormalities. MM/MM tomosynthesis screening BI IMPRESSION: No mammographic evidence of malignancy. ASSESSMENT: BI-RADS BI-RADS 1 - Negative RECOMMENDATION: Routine annual mammography screening. 1 year F/U This examination should not preclude the clinical evaluation of a suspicious palpable abnormality. This patient's information was entered into a reminder system with a target due date for their next mammogram. Electronically signed by: Kirstin Galindo DO 04/26/2024 10:08 AM JOYCE
== END 2024-04-15 08:16 | disposition home or self-care (01) ==
LOC: HO.MAMMO 08:15
PROVIDERS: PCP Internal Medicine; Visit Provider Internal Medicine
DX: Z12.31 Encounter for screening mammogram for malignant neoplasm of breast (principal)
CPT/HCPCS: 77063; 77067

== ENCOUNTER → 2024-04-15 08:30 | Outpatient (BNV) | payer OTHER, SELFPAY | PROVIDERS: PCP Internal Medicine; Visit Provider Internal Medicine | DX: Z12.31 Encounter for screening mammogram for malignant neoplasm of breast (principal) | CPT/HCPCS: 77063; 77067 ==

== ENCOUNTER → 2024-04-26 19:30 | Outpatient (REF) | payer OTHER, SELFPAY | LOC: HO.SL 19:30 | PROVIDERS: PCP Internal Medicine; Visit Provider Internal Medicine Cardiovascular Disease | DX: Z13.89 Encounter for screening for other disorder (principal) ==

== ENCOUNTER → 2024-04-26 22:48 | Outpatient (BNV) | payer OTHER, SELFPAY | PROVIDERS: PCP Internal Medicine; Visit Provider Internal Medicine | DX: G47.33 Obstructive sleep apnea (adult) (pediatric) (principal) | CPT/HCPCS: 95810 ==

== ENCOUNTER 2024-05-27 11:15 | Outpatient (AMB) | payer OTHER, SELFPAY ==
[2024-05-27 11:20] VITALS: BP 122/80; PULSE 62; BMI 34.2
--- NOTE | 2024-05-27 11:20 | MHC.OFFVIS ---
Vital Signs 05/27/24 11:20 Height 5 ft 6 in Weight 211 lb 10.3 oz BMI 34.2 BP 122/80 Blood Pressure Location Lt brachial Position Sitting Pulse 62 Intake Visit Reasons: 3m follow up Intake Note: 3 month follow-up with ekg Allergies amoxicillin [AMOXICILLIN] Allergy (Intermediate, Verified 02/21/24 09:37) HIVES Sulfa (Sulfonamide Antibiotics) [SULFA (SULFONAMIDE ANTIBIOTICS)] Allergy (Intermediate, Verified 02/21/24 09:37) HIVES [id number]-[id number]-VfC Reductase Inhibitor Allergy (Mild, Verified 02/21/24 09:37) Muscle Pain azithromycin Allergy (Unknown, Verified 02/21/24 09:37) Unknown Medication List - Last Reconciled 05/27/24 by Iam Almeida MD amiodarone 100 mg (1/2 x 200 mg) PO .everyother 90 days furosemide 20 mg PO DAILY 90 days rivaroxaban (Xarelto) 20 mg PO DAILY 90 days HPI Comments Details: Candida comes for follow-up. Overall she has been doing well with no heart failure symptoms. Functionally she was improved significantly. Exercising and walking on treadmill 3-4 miles without shortness of breath. She denies any orthopnea, PND, leg edema, weight gain. She is actually participating lifestyle modification has had weight loss. She has not had any irregular heartbeat or palpitation. Although she notices heart rate to be on the slower side at nighttime her smart watch detect heart rate in the 30s. Has no lightheadedness, syncope. No bleeding issues or neurologic events. Comes for follow-up visit. [facility] Medical History (HFpEF) heart failure with preserved ejection fraction Paroxysmal atrial fibrillation Uncontrolled hypertension Cervical mass PAT (paroxysmal atrial tachycardia) CAD (coronary artery disease) A-fib Surgical History History of hysterectomy H/O oral surgery Hx of cholecystectomy Hx of tonsillectomy Family History Father Heart failure Social History Housing: House Alcohol intake: never Patient Tobacco Use Status: Never used Tobacco e-Cigarette/Vaping Use: Never Used Second Hand Smoke Exposure: No service: No Current occupational status: employed Sexual orientation: Straight/Heterosexual Gender identity: Female Cognitive needs: No Hearing needs: No Vision needs: Yes Female Reproductive History Menstrual Age of Menarche: 11 Review of Systems Const Denies chills, Denies fatigue, Denies fever(s), Denies frequent falls, Denies weakness, Denies weight gain and Denies weight loss ENT Denies dizziness Card Denies chest pain, Denies leg edema, Denies lightheadedness, Denies palpitations, Denies dyspnea, Denies dyspnea on exertion, Denies orthopnea and Denies other (loss of consciousness) Resp Denies cough, Denies dyspnea and Denies dyspnea on exertion GI Denies hematochezia and Denies change in stool character Musc Denies abnormal gait, Denies muscle weakness, Denies numbness, Denies radiating pain into limb and Denies tingling Neuro Denies abnormal gait, Denies dizziness, Denies frequent falls, Denies numbness, Denies tingling and Denies weakness Endo Denies fatigue and Denies palpitations Physical Exam Vital Signs: Last Vital Signs Pulse 62 05/27/24 11:20 BP 122/80 05/27/24 11:20 BMI result Body Mass Index 34.2 Const General: cooperative, healthy appearing, comfortable and no acute distress Orientation/consciousness: patient oriented x3 Neck Neck: Yes normal visual inspection Chest Chest palpation & inspection: normal inspection of the chest Resp Effort & Inspection: normal respiratory effort Auscultation: clear to auscultation bilaterally, no crackles, no rales, no rhonchi and no wheezes Cardio Jugular venous distension: no JVD Rate: bradycardic Rhythm: regular rhythm Heart sounds: S1 normal heart sound present, S2 normal heart sound present, no murmurs and no rubs Neuro General: patient oriented x3 Extrem General: Yes normal to inspection, No no clubbing, cyanosis or edema, No no pedal edema and No calf tenderness Psych Appearance: grossly normal Mental Status: mental status grossly normal Speech and movement: Normal speech and movement present Office Procedures EKG Details: EKG shows junctional rhythm, with left axis deviation [id number], Complete Assessment & Plan Assessment & Plan (1) Sick sinus syndrome: Code(s): I49.5 - Sick sinus syndrome Category: Medical Plan: Sick sinus syndrome with junctional rhythm currently on amiodarone therapy. Suggestive of right atrial fibrosis around sinus node causing sick sinus syndrome. Possibly exacerbated by amiodarone therapy. Currently having no symptoms whatsoever. This was discussed with her. She has no signs or symptoms of cardiac decompensation. At this point time will discontinue amiodarone therapy and follow-up with a treadmill stress test in 6 weeks time and a Holter monitor in 6 weeks time to assess for chronotropic competence as well as presence of any significant pauses that may indicate a require pacing therapy. She is encouraged to continue maintain activity level as tolerated. If she develops recurrent tachycardic rhythm such as atrial flutter atrial fibrillation off amiodarone therapy and requires further antiarrhythmic drug therapy will most likely require pacemaker. This was discussed with her. She was not happy about it but she understands. (2) Paroxysmal atrial fibrillation: Code(s): I48.0 - Paroxysmal atrial fibrillation Category: Medical Plan: Paroxysmal atrial fibrillation, difficult control but with heart failure syndrome. Has done extremely well with rhythm control approach and AV synchrony. Continue rhythm control approach. However given that she has significant bradycardia will stop amiodarone therapy. She has had 2 complex ablations recently. Continue full oral anticoagulation, currently on Xarelto. Encouraged to continue aggressive lifestyle modification with weight loss program. (3) (HFpEF) heart failure with preserved ejection fraction: Code(s): I50.30 - Unspecified diastolic (congestive) heart failure Category: Medical Qualifiers: Heart failure chronicity: chronic Qualified Code(s): I50.32 - Chronic diastolic (congestive) heart failure Plan: Heart failure preserved ejection fraction, clinically euvolemic and well compensated with rhythm management. Continue rhythm control approach. Continue aggressive blood pressure control which is currently well optimized. Will reduce Lasix to 20 mg Monday and Monday. Daily weight monitoring avoidance of salt loading was discussed. In 6 weeks time she has no recurrent heart failure syndrome will use Lasix on a p.r.n. basis. Continue aggressive rhythm control approach. Continue aggressive weight loss program. (4) CAD (coronary artery disease): Comment: follows w/HCS Code(s): I25.10 - Atherosclerotic heart disease of [place] coronary artery without angina pectoris Category: Medical Qualifiers: Coronary Disease-Associated Artery/Lesion type: [place] artery [place] vs. transplanted heart: [place] heart Associated angina: without angina Qualified Code(s): I25.10 - Atherosclerotic heart disease of [place] coronary artery without angina pectoris Plan: CAD nonobstructive without any symptoms. Currently on full oral anticoagulation Xarelto. Continue the same. Continue aggressive risk factor modification. Continue to target goal LDL less than 100 mg/dL. No further workup is indicated. Will follow up in the clinic in 3 months time, sooner p.r.n.. Greater than 40 minutes was spent in managing his complex care. Coding Level of Care Code Est Pt Level 5 (94983) Complex EM visit Add On G2211 Diagnoses Sick sinus syndrome I49.5 Paroxysmal atrial fibrillation I48.0 Chronic heart failure with preserved ejection fraction I50.32 Heart failure chronicity: chronic Coronary artery disease involving [place] coronary artery of [place] heart without angina pectoris I25.10 Coronary Disease-Associated Artery/Lesion type: [place] artery [place] vs. transplanted heart: [place] heart Associated angina: without angina CPT Codes EKG - CPT: 94215-[id number], Complete ([id number])
== END 2024-05-27 12:00 | disposition home or self-care (01) ==
PROVIDERS: PCP Internal Medicine; Visit Provider Internal Medicine Cardiovascular Disease
DX: I49.5 Sick sinus syndrome (principal); I48.0 Paroxysmal atrial fibrillation; I50.32 Chronic diastolic (congestive) heart failure; I25.10 Atherosclerotic heart disease of native coronary artery without angina pectoris; R94.31 Abnormal electrocardiogram [ECG] [EKG]
CPT/HCPCS: 93010; 99215

== ENCOUNTER → 2024-05-27 11:15 | Outpatient (BNVA) | payer OTHER, SELFPAY | PROVIDERS: PCP Internal Medicine; Visit Provider Internal Medicine Cardiovascular Disease | DX: I49.5 Sick sinus syndrome (principal); I48.0 Paroxysmal atrial fibrillation; I50.32 Chronic diastolic (congestive) heart failure; I25.10 Atherosclerotic heart disease of native coronary artery without angina pectoris | CPT/HCPCS: 93005 ==

== ENCOUNTER → 2024-07-09 07:53 | Outpatient (REF) | payer MEDICARE, SELFPAY ==
--- NOTE | 2024-07-09 07:57 | CA_ITS ---
Acquisition Time: 2024-07-09 08:08:09 Total Exercise Time: 00:07:36 Test Indications: CHRONOTROPIC COMPETENCY Medications: XARELTO FUROSEMIDE Protocol: CORDELL Max HR: 136 BPM 87% of Pred: 156 BPM Max BP: 208/60 mmHG Max Work Load: 9.4 METS Exercise Stress Test with excercise 7 mins 36 secs of Cordell Protocol, achieving 86% MPHr, with reports of mild SOB, no chest discomfort, with frequent isolated PVCs, with hypertensive response- max 208/60. With sagging ST in recovery, however no notions of ischemic changes with exercise. In recovery, breathing returned to baseline and BP improved to 134/90. Test reviewed with Dr. Almeida. Referred By: Iam Almeida Electronically Signed By: Jt Ferrara
== END ==
LOC: HO.CARD 07:53
PROVIDERS: PCP Internal Medicine; Visit Provider Internal Medicine Cardiovascular Disease
DX: I49.5 Sick sinus syndrome (principal)
CPT/HCPCS: 93017; 93242

== ENCOUNTER → 2024-07-09 07:57 | Outpatient (BNV) | payer MEDICARE, SELFPAY | PROVIDERS: PCP Internal Medicine | DX: R06.02 Shortness of breath (principal); I49.3 Ventricular premature depolarization | CPT/HCPCS: 93016; 93018 ==

== ENCOUNTER 2024-09-05 08:51 | Outpatient (AMB) | payer MEDICARE, SELFPAY ==
[2024-09-05 09:26] VITALS: BP 120/80; PULSE 68; BMI 32.0
--- NOTE | 2024-09-05 09:26 | MHC.OFFVIS ---
Vital Signs 09/05/24 09:26 Height 5 ft 6 in Weight 198 lb 6.656 oz BMI 32.0 BP 120/80 Blood Pressure Location Lt brachial Position Sitting Pulse 68 Intake Visit Reasons: 3 mth f/up ett/holter Intake Note: 3 month follow-up after ett and holter feeling good Photograph Printer Required: No Allergies amoxicillin [AMOXICILLIN] Allergy (Intermediate, Verified 02/21/24 09:37) HIVES Sulfa (Sulfonamide Antibiotics) [SULFA (SULFONAMIDE ANTIBIOTICS)] Allergy (Intermediate, Verified 02/21/24 09:37) HIVES [id number]-TLS-[id number] Reductase Inhibitor Allergy (Mild, Verified 02/21/24 09:37) Muscle Pain azithromycin Allergy (Unknown, Verified 02/21/24 09:37) Unknown Medication List - Last Reconciled 09/05/24 by Iam Almeida MD furosemide 20 mg PO DAILY PRN rivaroxaban (Xarelto) 20 mg PO DAILY 90 days HPI Comments Details: Candida comes for follow-up. She has been doing extremely well from cardiac perspective. She has really intensified lifestyle modification and has been exercising regularly. She has not had any significant lightheadedness, fatigue, syncope. Denies any prolonged palpitation irregular heartbeat. She has not had any heart failure symptoms with no orthopnea, PND, leg edema or abdominal distension. Denies any exertional chest pain. Stress test in June showed good chronotropic competence. She overall feels well. No bleeding issues or neurologic events. [facility] Medical History (HFpEF) heart failure with preserved ejection fraction Paroxysmal atrial fibrillation Uncontrolled hypertension Cervical mass PAT (paroxysmal atrial tachycardia) CAD (coronary artery disease) A-fib Surgical History History of hysterectomy H/O oral surgery Hx of cholecystectomy Hx of tonsillectomy Family History Father Heart failure Social History Housing: House Alcohol intake: never Patient Tobacco Use Status: Never used Tobacco e-Cigarette/Vaping Use: Never Used Second Hand Smoke Exposure: No service: No Current occupational status: employed Sexual orientation: Straight/Heterosexual Gender identity: Female Cognitive needs: No Hearing needs: No Vision needs: Yes Female Reproductive History Menstrual Age of Menarche: 11 Review of Systems Const Denies chills, Denies fatigue, Denies fever(s), Denies frequent falls, Denies weakness, Denies weight gain and Denies weight loss ENT Denies dizziness Card Denies chest pain, Denies leg edema, Denies lightheadedness, Denies palpitations, Denies dyspnea, Denies dyspnea on exertion, Denies orthopnea and Denies other (loss of consciousness) Resp Denies cough, Denies dyspnea and Denies dyspnea on exertion GI Denies hematochezia and Denies change in stool character Musc Denies abnormal gait, Denies muscle weakness, Denies numbness, Denies radiating pain into limb and Denies tingling Neuro Denies abnormal gait, Denies dizziness, Denies frequent falls, Denies numbness, Denies tingling and Denies weakness Endo Denies fatigue and Denies palpitations Physical Exam Vital Signs: Last Vital Signs Pulse 68 09/05/24 09:26 BP 120/80 09/05/24 09:26 BMI result Body Mass Index 32.0 Const General: cooperative, healthy appearing, comfortable and no acute distress Nutritional Appearance: obese Orientation/consciousness: patient oriented x3 Neck Neck: Yes normal visual inspection Chest Chest palpation & inspection: normal inspection of the chest Resp Effort & Inspection: normal respiratory effort Auscultation: clear to auscultation bilaterally, no crackles, no rales, no rhonchi and no wheezes Cardio Jugular venous distension: no JVD Rate: bradycardic Rhythm: regular rhythm Heart sounds: S1 normal heart sound present, S2 normal heart sound present, no murmurs and no rubs Neuro General: patient oriented x3 Extrem General: Yes normal to inspection, No no clubbing, cyanosis or edema, No no pedal edema and No calf tenderness Psych Appearance: grossly normal Mental Status: mental status grossly normal Speech and movement: Normal speech and movement present Assessment & Plan Assessment & Plan (1) Paroxysmal atrial fibrillation: Code(s): I48.0 - Paroxysmal atrial fibrillation Category: Medical Plan: Paroxysmal atrial fibrillation status post ablation, currently off all medications and has done extremely well with rhythm control approach. Given her left atrial enlargement I would continue oral anticoagulation with Xarelto to reduce thrombotic risk as she has higher likelihood of recurrence of atrial fibrillation. This was discussed with her. Continue to maintain aggressive lifestyle modification including weight loss program. (2) (HFpEF) heart failure with preserved ejection fraction: Code(s): I50.30 - Unspecified diastolic (congestive) heart failure Category: Medical Qualifiers: Heart failure chronicity: chronic Qualified Code(s): I50.32 - Chronic diastolic (congestive) heart failure Plan: Heart failure preserved ejection fraction, clinically euvolemic well compensated has done extremely well since rhythm control approach. Continue pursue rhythm control approach. As Lasix as need be. Continue participate in regular physical activity and weight loss program. 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 Clinically at current time has good chronotropic competence and no symptoms. Continue monitor clinically. No pacing therapy required. Follow up in the clinic in 6 months time, sooner p.r.n.. Thank you for allowing me to partake in her care Medications: Changed From furosemide 20 mg PO DAILY 90 days 90 tabs 3RF To furosemide 20 mg PO DAILY PRN Coding Level of Care Code Est Pt Level 4 (79741) Complex EM visit Add On G2211 Diagnoses Paroxysmal atrial fibrillation I48.0 Chronic heart failure with preserved ejection fraction I50.32 Heart failure chronicity: chronic Sick sinus syndrome I49.5
== END 2024-09-05 09:55 | disposition home or self-care (01) ==
PROVIDERS: PCP Internal Medicine; Visit Provider Internal Medicine Cardiovascular Disease
DX: I48.0 Paroxysmal atrial fibrillation (principal); I50.32 Chronic diastolic (congestive) heart failure; I49.5 Sick sinus syndrome
CPT/HCPCS: 99214; G2211

== ENCOUNTER → 2024-09-05 08:51 | Outpatient (BNVA) | payer MEDICARE, SELFPAY | PROVIDERS: PCP Internal Medicine; Visit Provider Internal Medicine Cardiovascular Disease | DX: I48.0 Paroxysmal atrial fibrillation (principal); I50.32 Chronic diastolic (congestive) heart failure; I49.5 Sick sinus syndrome | CPT/HCPCS: 99212 ==

== ENCOUNTER 2025-02-28 07:39 | Outpatient (REF) | payer MEDICARE, SELFPAY ==
[2025-02-28 10:34] LABS: MANUAL DIFF FLAG NO
[2025-02-28 10:52] LABS: Hematocrit 41.9 % (37.0-47.0); Hemoglobin 14.1 g/dl (12.0-16.0); Imm Gran Abs Auto 0.02 X10*3/uL (0.00-0.03); Imm Gran Pct Auto 0.4 % (0.0-0.4); Lymphocytes Absolute Auto 1.2 X10*3/uL (1.2-4.9); Mean Corpuscular HGB Conc 33.7 g/dl (31.0-35.0); Mean Corpuscular Hemoglobin 30.4 pg (27.0-33.0); Mean Corpuscular Volume 90.3 fL (80.0-98.0); NRBC Abs Auto 0.000 X10*3/uL (0.0-0.012); NRBC Pct Auto 0.0 /100WBC (0.0-0.2); Platelet Count 178 X10*3/uL (160-400); Red Blood Count 4.64 X10*6/uL (4.20-5.50); White Blood Count 5.2 X10*3/uL (4.8-10.8)
[2025-02-28 11:28] LABS: Alanine Aminotransferase 21 U/L (0-31); Albumin Level 4.5 g/dL (3.5-5.0); Alkaline Phosphatase 88 U/L (39-117); Anion Gap 14 (12-20); Aspartate Amino Transferase 28 U/L (5-31); Blood Urea Nitrogen 20 mg/dL (9-16); Calcium 9.5 mg/dL (8.4-10.2); Carbon Dioxide 26 mmol/L (22-29); Chloride 106 mmol/L (96-108); Cholesterol 197 mg/dL (<200); Estimated Glomerular Filt Rate > 60; HDL Cholesterol 52 mg/dL (>40); Potassium 4.3 mmol/L (3.3-5.1); Sodium 142 mmol/L (135-145); Total Protein 7.1 g/dL (6.5-8.0); Triglycerides 79 mg/dL (<150)
[2025-02-28 11:50] LABS: Ferritin 114 ng/mL (10-250)
[2025-02-28 13:37] LABS: Free T4 (Free Thyroxine) 1.24 ng/dL (0.71-1.85)
== END 2025-02-28 07:40 | disposition home or self-care (01) ==
LOC: HO.HMGCLDS 07:39
PROVIDERS: PCP Internal Medicine; Visit Provider Internal Medicine
DX: I25.10 Atherosclerotic heart disease of native coronary artery without angina pectoris (principal); I50.32 Chronic diastolic (congestive) heart failure; I48.91 Unspecified atrial fibrillation; Z14.8 Genetic carrier of other disease; E66.01 Morbid (severe) obesity due to excess calories; Z68.37 Body mass index [BMI] 37.0-37.9, adult; Z00.00 Encounter for general adult medical examination without abnormal findings
CPT/HCPCS: 36415; 80053; 80061; 82728; 84439; 84443; 85025; 96127

== ENCOUNTER 2025-02-28 07:39 | Outpatient (AMB) | payer MEDICARE, SELFPAY ==
--- OUTSIDE RECORDS SUMMARY | 2025-02-28 07:41 | XMS_ITS | Clinical Summary ---
Author Organization [facility] Address [address] [place] [address] Phone Care Team Providers Care Senior Electrical Project Manager Name Role Phone Michelle Sarmiento MD Primary Care Provider [phone] Social History Tobacco Use Types Packs/Day Years Used Date Smoking Tobacco: Never Assessed Education Answer Date Recorded Are you interested in more education? Not on tierra e 03/12/2024 Are you concerned about learning? Not on file 03/12/2024 No 03/12/2024 No 03/12/2024 Digital Access Answer Date Recorded No 03/12/2024 No 03/12/2024 Reliable internet access at home? Not on file 03/12/2024 Device with a working camera? Not on file Comments Unknown Sex and Gender Information Value Date Recorded Sex Assigned at Not on file Legal Sex Female 9:07 AM EDT Gender Identity Not on file Sexual Orientation Not on file Plan of Treatment Health Maintenance Due Date Last Done Comments Adult Td,Tdap Booster 1959 LIPID PANEL 1959 DEPRESSION SCREENING 1971 SMOKING Hx and SMOKELESS TOB ACCO SCREENING 1972 HEPATITIS C SCREENING 1977 HIV ONE-TIME SCREENING (18-6 5 YEARS) 1977 MAMMOGRAM 1999 COLOGUARD 2004 COLONOSCOPY 2004 COLORECTAL CANCER SCREENING 2004 FIT TEST 2004 FOBT 2004 SIGMOIDOSCOPY 2004 VIRTUAL COLONOSCOPY 2004 PNEUMOCOCCAL VACCINES (50+ y ears) (1 of 1 - PCV) 2009 ZOSTER VACCINES (1 of 2) 2009 COVID-19 VACCINE (2023-2 5 season) 2024 OSTEOPOROSIS SCREENING INITI AL (ONE-TIME) 2024 RSV VACCINE (1 - 1-dose 75+ series) 2034 HEPATITIS A VACCINES Aged Out No long er eligible based on patient's age to complete this topic HIB VACCINES Aged Out No longer eligi ble based on patient's age to complete this topic MENINGOCOCCAL VACCINES (ACWY) Aged Out No longer eligible based on patient's age to complete this topic MENINGOCOCCAL VACCINES (B) Aged Out N o longer eligible based on patient's age to complete this topic Medical Devices Not on file Insurance [address] [place], [place] [address] [address] [place] [place] [address] Address: [address] [address] Care Teams Senior Electrical Project Manager Relationship Specialty Start Date End Date Michelle Sarmiento MD [facility] [place] [address] PCP - General Internal Medicine 03/12/24 Additional Source Comments The information contained in this document represents components of the legal health record. It is not the complete legal health record.Formerly [facility]
[2025-02-28 08:00] VITALS: BP 140/90; PULSE 68; RESP 16; O2SAT 95; BMI 31.1
--- NOTE | 2025-02-28 08:00 | MHC.PC.OV ---
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 Accompanied by: Self / Same As Patient Allergies amoxicillin (AMOXICILLIN) Allergy (Intermediate, Verified 02/28/25 08:03) HIVES Sulfa (Sulfonamide Antibiotics) (SULFA (SULFONAMIDE ANTIBIOTICS)) Allergy (Intermediate, Verified 02/28/25 08:03) HIVES [id number] Reductase Inhibitor Allergy (Mild, Verified 02/28/25 08:03) Muscle Pain azithromycin Allergy (Unknown, Verified 02/28/25 08:03) Unknown Medication List - Last Reconciled 02/28/25 by Michelle Sarmiento MD furosemide 20 mg PO DAILY PRN rivaroxaban (Xarelto) 20 mg PO DAILY 90 days Tobacco use date assessed: 02/28/25 Fall risk assessment: No Falls in past year Last assessed Fall Risk: 02/28/25 Dental Screening Dental Screen Date: 02/28/25 Did you have a dental visit in the last 12 months?: Yes Did you have a dental problem in the last 6 months where you did not have access to dental care?: No Was dental information given to patient?: Patient has dentist [facility] Medical History (HFpEF) heart failure with preserved ejection fraction Paroxysmal atrial fibrillation Uncontrolled hypertension Cervical mass PAT (paroxysmal atrial tachycardia) CAD (coronary artery disease) A-fib Surgical History History of hysterectomy H/O oral surgery Hx of cholecystectomy Hx of tonsillectomy Family History Father Heart failure Social History Housing: House Alcohol intake: never Patient Tobacco Use Status: Never used Tobacco e-Cigarette/Vaping Use: Never Used Second Hand Smoke Exposure: No service: No Current occupational status: employed Sexual orientation: Straight/Heterosexual Gender identity: Female Cognitive needs: No Hearing needs: No Vision needs: Yes Female Reproductive History Menstrual Age of Menarche: 11 Questionnaire PHQ-9 Over the last 2 weeks, how often have you been bothered by any of the following problems? 1. Little interest or pleasure in doing things: not at all 2. Feeling down, depressed, or hopeless: not at all 3. Trouble falling or staying asleep, or sleeping too much: not at all 4. Feeling tired or having little energy: not at all 5. Poor appetite or overeating: not at all 6. Feeling bad about yourself - or that you are a failure or have let yourself or your family down: not at all 7. Trouble concentrating on things, such as reading the newspaper or watching television: not at all 8. Moving or speaking so slowly that other people could have noticed. Or the opposite - being so fidgety or restless that you have been moving around a lot more than usual: not at all 9. Thoughts that you would be better off or of hurting yourself in some way: not at all Total score: 0 Depression Screening Interpretation: Negative Depression Screening Done: Yes 50758 - PHQ-9 Billing: Yes Source: Developed by Drs. Jovanny Hernandez, Elly Costa, Jurgen Guillen and colleagues, with an educational marva from [employer]. Thrive Questionnaire Date Thrive assessed: 02/21/25 I am a: Patient What is your living situation today?: I have a steady place to live Within the past 12 months, did the food you bought not last and you didn't have the money to get more?: Never true Within the past 12 months, did you worry whether your food would run out before you got money to buy more?: Never true Do you have trouble paying for medicines?: No Do you have trouble getting transportation to medical appointments?: No Do you have trouble paying your heating and electricity bill?: No Do you have trouble taking care of your child, family member or friend?: No Do you have trouble with day-to-day activities such as bathing, preparing meals, shopping, managing finances, etc.?: No Are you currently unemployed and looking for a job?: No Are you interested in more education?: No Please select the resources that you would like help with: None Currently or been in a relationship where the following occur: No concerns reported THRIVE Score: 0 AUDIT C Alcohol Use Questionnaire (AUDIT-C) 1. How often do you have a drink containing alcohol?: Never 3. How often do you have six or more drinks on one occasion?: Never Total Score: 0 DARNELL-7 AMB Questionnaire DARNELL-7 Date DARNELL - 7 assessed: 02/28/25 Feeling nervous, anxious, or on edge: 0 = Not at all Not being able to stop or control worryin = Not at all Worrying too much about different things: 0 = Not at all Trouble relaxin = Not at all Being so restless that it is hard to sit still: 0 = Not at all Becoming easily annoyed or irritable: 0 = Not at all Feeling afraid as if something awful might happen: 0 = Not at all Total DARNELL-7 score (0-4 normal; 5-9 mild; 10-14 moderate; 15-21 severe): 0 Source: Developed by Drs. Jovanny Hernandez, Elly Costa, Jurgen Guillen and colleagues, with an educational marva from [employer]. Physical exam (Primary Care) Vital Signs: Last Vital Signs Pulse 68 02/28/25 08:00 Resp 16 02/28/25 08:00 BP 140/90 H 02/28/25 08:00 Pulse Ox 95 02/28/25 08:00 Oxygen Delivery Method Room Air 02/28/25 08:00 BMI result Body Mass Index 31.1 Tobacco/Smoking Status: Tobacco use Status Tobacco use date assessed 02/28/25 02/28/25 08:06 Patient Tobacco Use Status Never used Tobacco 02/28/25 08:06 e-Cigarette/Vaping Use Never Used 02/28/25 08:06 PHQ-9: PHQ-9 Score PHQ-9: Total score 0 02/28/25 08:06 Depression Screening Interpretation: Negative Thrive Assessment: Date of Thrive Assessment Date Thrive assessed 02/21/25 02/28/25 08:06 Currently or been in a relationship where the following occur: No concerns reported Coding Diagnoses Medicare annual wellness visit, initial Z00.00 Chronic heart failure with preserved ejection fraction I50.32 Heart failure chronicity: chronic Coronary artery disease involving [place] coronary artery of [place] heart without angina pectoris I25.10 Associated angina: without angina Coronary Disease-Associated Artery/Lesion type: [place] artery [place] vs. 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 Class 2 severe obesity due to excess calories with serious comorbidity and body mass index (BMI) of 37.0 to 37.9 in adult E66.01; Z68.37 Body mass index: BMI 37.0-37.9 Obesity classification: adult class 2 (BMI 35 - 39.9) Serious obesity comorbidity presence: with serious comorbidity Additional Codes PHQ-9 - 68472 - PHQ-9 Billing: Yes ([id number]) Assessment & Plan Assessment & Plan (1) Medicare annual wellness visit, initial: Code(s): Z00.00 - Encounter for general adult medical examination without abnormal findings Category: Medical (2) (HFpEF) heart failure with preserved ejection fraction: Code(s): I50.30 - Unspecified diastolic (congestive) heart failure Category: Medical Qualifiers: Heart failure chronicity: chronic Qualified Code(s): I50.32 - Chronic diastolic (congestive) heart failure (3) CAD (coronary artery disease): Comment: follows w/HCS Code(s): I25.10 - Atherosclerotic heart disease of [place] coronary artery without angina pectoris Category: Medical Qualifiers: Associated angina: without angina Coronary Disease-Associated Artery/Lesion type: [place] artery [place] vs. transplanted heart: [place] heart Qualified Code(s): I25.10 - Atherosclerotic heart disease of [place] coronary artery without angina pectoris (4) A-fib: Code(s): I48.91 - Unspecified atrial fibrillation Category: Medical (5) Carrier of hemochromatosis HFE gene mutation: Code(s): Z14.8 - Genetic carrier of other disease Category: Medical (6) Obesity due to excess calories: Code(s): E66.09 - Other obesity due to excess calories Category: Medical Qualifiers: Body mass index: BMI 37.0-37.9 Obesity classification: adult class 2 (BMI 35 - 39.9) Serious obesity comorbidity presence: with serious comorbidity Qualified Code(s): E66.01 - Morbid (severe) obesity due to excess calories; Z68.37 - Body mass index [BMI] 37.0-37.9, adult Orders: Orders Lipid Panel Today E66.01 - Morbid (severe) obesity due to excess calories, I25.10 - Atherosclerotic heart disease of [place] coronary artery without angina pectoris, I48.91 - Unspecified atrial fibrillation, I50.32 - Chronic diastolic (congestive) heart failure, Z00.00 - Encounter for general adult medical examination without abnormal findings, Z14.8 - Genetic carrier of other disease, Z68.37 - Body mass index [BMI] 37.0-37.9, adult Ferritin Today E66.01 - Morbid (severe) obesity due to excess calories, I25.10 - Atherosclerotic heart disease of [place] coronary artery without angina pectoris, I48.91 - Unspecified atrial fibrillation, I50.32 - Chronic diastolic (congestive) heart failure, Z00.00 - Encounter for general adult medical examination without abnormal findings, Z14.8 - Genetic carrier of other disease, Z68.37 - Body mass index [BMI] 37.0-37.9, adult Complete Blood Count Auto Diff Today E66.01 - Morbid (severe) obesity due to excess calories, I25.10 - Atherosclerotic heart disease of [place] coronary artery without angina pectoris, I48.91 - Unspecified atrial fibrillation, I50.32 - Chronic diastolic (congestive) heart failure, Z00.00 - Encounter for general adult medical examination without abnormal findings, Z14.8 - Genetic carrier of other disease, Z68.37 - Body mass index [BMI] 37.0-37.9, adult Comprehensive [place]. Panel Fast Today E66.01 - Morbid (severe) obesity due to excess calories, I25.10 - Atherosclerotic heart disease of [place] coronary artery without angina pectoris, I48.91 - Unspecified atrial fibrillation, I50.32 - Chronic diastolic (congestive) heart failure, Z00.00 - Encounter for general adult medical examination without abnormal findings, Z14.8 - Genetic carrier of other disease, Z68.37 - Body mass index [BMI] 37.0-37.9, adult TSH reflex Free T4 Today E66.01 - Morbid (severe) obesity due to excess calories, I25.10 - Atherosclerotic heart disease of [place] coronary artery without angina pectoris, I48.91 - Unspecified atrial fibrillation, I50.32 - Chronic diastolic (congestive) heart failure, Z00.00 - Encounter for general adult medical examination without abnormal findings, Z14.8 - Genetic carrier of other disease, Z68.37 - Body mass index [BMI] 37.0-37.9, adult Referrals Cologuard Test Z12.11 - Encounter for screening for malignant neoplasm of colon
--- NOTE | 2025-02-28 08:35 | AM.OFFVISMDC ---
Intake Vital Signs 02/28/25 08:00 Height 5 ft 6 in Weight 193 lb BMI 31.1 BP 140/90 H Blood Pressure Location Lt brachial Position Sitting Respiration 16 Pulse 68 Pulse Source Pulse Oximeter Pulse Oximetry (%) 95 Oxygen Delivery Method Room Air Intake Visit Reasons: AWV G0438 Allergies amoxicillin (AMOXICILLIN) Allergy (Intermediate, Verified 02/28/25 08:03) HIVES Sulfa (Sulfonamide Antibiotics) (SULFA (SULFONAMIDE ANTIBIOTICS)) Allergy (Intermediate, Verified 02/28/25 08:03) HIVES [id number] Reductase Inhibitor Allergy (Mild, Verified 02/28/25 08:03) Muscle Pain azithromycin Allergy (Unknown, Verified 02/28/25 08:03) Unknown Medication List - Last Reconciled 02/28/25 by Michelle Sarmiento MD furosemide 20 mg PO DAILY PRN rivaroxaban (Xarelto) 20 mg PO DAILY 90 days HPI AWV G0438 HPI Details History of Present Illness The patient is a 64-year-old female presenting with a Medicare Wellness Visit. Atrial Fibrillation: - History of atrial fibrillation, underwent an ablation and a pulse field ablation in March. - Currently prescribed a blood thinner, though further evaluation and potential discontinuation by casino enforcement agent is anticipated. Hypertension: - blood pressure reading of 140/90 mmHg. Obesity: - Body mass index (BMI) recorded at 31.2. - History of weight management difficulties; attempting to lose weight from 285 pounds. 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 - Advised to avoid iron supplementation. Hyperglycemia: - Previously recorded fasting glucose level of 100 mg/dL. Osteoarthritis: - Reports knee discomfort attributed to physical activity. History of Uterine Polyps (benign): - Underwent a hysterectomy due to benign polyps. Ophthalmologic Issues Requiring Laser Procedure: - Recently underwent laser procedure on eyes. Medical History: - Atrial Fibrillation history of - Hypertension - Obesity - Hemochromatosis (Carrier Status) - Hyperglycemia - Osteoarthritis - History of Uterine Polyps (Benign) Surgical History: - Hysterectomy - Pulse field ablation for Atrial Fibrillation - Ophthalmologic laser procedure Social History: - Engages in regular exercise, including gym visits and daily treadmill use. - Currently working on weight management; noted a history of weight loss efforts. - Denies smoking and alcohol consumption. - Reports dietary changes with instances of increased beef consumption historically. Health Maintenance - Mammogram last completed in March 2021, due again in March. - Last comprehensive blood test in February; CBC normal, electrolytes normal, renal function slightly affected. - Pneumonia vaccine (Prevnar 20) recommended. - Recommendation for colon cancer screening with Cologuard kit. colonoscopy refused by pt - Immunizations include Tetanus (2019), Zoster vaccine (2022). [place] [facility] - Resident Care Associate: Dr. Almeida - Scouring Machine Operator: Dr. Henderson, [place] Medications - Furosemide: As needed for hypertension and cardiological care. [ not taking any more ] - Albuterol: Prescribed, indication not specified in conversation. - Blood thinner: Prescribed post-ablation procedure for atrial fibrillation. Diagnostic results Labs: - Last blood test in February 2024: CBC normal, electrolytes normal, kidney functions slightly affected. - Fasting glucose recorded at 100 mg/dL. - Hemochromatosis screening in February 2024 revealed one gene positive. Patient Instructions - Complete Cologuard test as discussed. - Consider pneumonia vaccination. - Monitor and maintain regular exercise routine. - Continue current medications as prescribed. - Avoid iron supplements due to carrier status for hemochromatosis. Review of Systems - General: No fever no chills - Neurological: No headaches no dizziness - Ear nose throat: No sore throat no hearing difficulty no ear pain - Cardiovascular: No syncope, no chest pain, no palpitations - Gastrointestinal: No nausea vomiting or diarrhea - Endocrine: No polyuria polydipsia no heat intolerance - Genitourinary: No dysuria - Skin: No new complaints Physical Exam General: Cooperative, healthy appearing, comfortable, no acute distress Orientation: Patient oriented x3 Limitations: none Head: Normal to inspection Ears: Within normal limit visually Nose: Normal external nose present Face and sinus: Normal facial exam Eyes: Appearance normal, extraocular movement intact pupils reactive Neck: Normal visual inspection and supple Respiratory: Normal respiratory effort and able to speak in complete sentences. Clear to auscultation, no stridor Cardiovascular: S1 and S2 RRR, blood pressure 140/90 Breast exam : WNL GI: Normal to inspection. Soft to palpation and nontender Skin: Turgor normal, no acute findings Neuro: Patient oriented x3, motor sensory intact, balance intact, tandem pass Extremities: Normal to inspection, full ROM [facility] Medical History (HFpEF) heart failure with preserved ejection fraction Paroxysmal atrial fibrillation Uncontrolled hypertension Cervical mass PAT (paroxysmal atrial tachycardia) CAD (coronary artery disease) A-fib Surgical History History of hysterectomy H/O oral surgery Hx of cholecystectomy Hx of tonsillectomy Family History Father Heart failure Social History Housing: House Alcohol intake: never Patient Tobacco Use Status: Never used Tobacco e-Cigarette/Vaping Use: Never Used Second Hand Smoke Exposure: No service: No Current occupational status: employed Sexual orientation: Straight/Heterosexual Gender identity: Female Cognitive needs: No Hearing needs: No Vision needs: Yes Female Reproductive History Menstrual Age of Menarche: 11 Questionnaire Medicare Wellness Checkup [age] What gender do you identify with?: female During the past 4 weeks, how much have you been bothered by emotional problems such as feeling anxious, depressed, irritable, sad or downhearted, and blue?: not at all During the past 4 weeks, has your physical & emotional health limited your social activities with family, friends, neighbors, or groups?: not at all During the past 4 weeks, how much bodily pain have you generally had?: no pain During the past 4 weeks, was someone available to help you if you needed & wanted help?: yes, as much as I wanted During the past 4 weeks, what was the hardest physical activity you could do for at least 2 minutes?: moderate Can you get to places out of walking distance without help? (For eg., can you travel alone on buses, taxis or drive your car?): Yes Can you go shopping for groceries or clothes without someone's help?: Yes Can you prepare your own meals?: Yes Can you do your housework without help?: Yes Because of any health problems, do you need the help of another person with your personal care needs such as eating, bathing, dressing or getting around the house?: No Can you handle your own money without help?: Yes During the past 4 weeks, how would you rate your health in general?: very good During the past 4 weeks how have things been going for you?: pretty well Are you having difficulties driving your car?: no Do you always fasten your seat belt when you are in a car?: no During past 4 weeks, have you been bothered by the following: never: Falling or dizzy when standing up, Sexual problems?, Trouble eating well?, Teeth or denture problems?, Problems using the telephone? and Tiredness or fatigue? Have you fallen 2 or more times in the past year?: No Are you afraid of falling?: No Are you a smoker?: no During the past 4 weeks, how many drinks of wine, beer, or other alcoholic beverages did you have?: no alcohol at all Do you exercise for about 20 minutes 3 or more times a week?: yes, most of the time Have you been given information to help with the following?: yes: Hazards in your house that might hurt you? and yes: Keeping track of your medications? How often do you have trouble taking medicines the way you have been told to take them?: I always take medicine as prescribed How confident are you that you can control & manage most of your health problems?: very confident What is your race?: White Mini Mental State Exam (MMSE) Orientation What is the (year) (season) (date) (day) (month)?: year, season, date, day and month Where are we (state) (county) (town or city) (hospital) (floor)?: state, county, town or city, hospital/clinic and floor Score Score: 10 Activity of Daily Living Bathing - sponge bath, tub bath or shower: receives no assistance (gets in/out by self, if usual bathing means Dressing - getting clothes from closets & drawers, including inner/outer garments & fasteners.: gets clothes & gets completely dressed without help Toileting - going to the 'toilet room' for urine/bowel elimination & cleaning self/arranging clothes: goes to toilet room, cleans self, arranges clothes without help Transfer: moves in & out of bed and chair without help (may use support object) Continence: controls urination/bowel movements completely by self Feeding: feeds self without help Total Score: 0 Information obtained from: patient Using telephone: independent Traveling: independent Shopping: independent Preparing meals: independent Housework: independent Taking medicine: independent Managing money: independent PHQ-9 Over the last 2 weeks, how often have you been bothered by any of the following problems? 1. Little interest or pleasure in doing things: not at all 2. Feeling down, depressed, or hopeless: not at all 3. Trouble falling or staying asleep, or sleeping too much: not at all 4. Feeling tired or having little energy: not at all 5. Poor appetite or overeating: not at all 6. Feeling bad about yourself - or that you are a failure or have let yourself or your family down: not at all 7. Trouble concentrating on things, such as reading the newspaper or watching television: not at all 8. Moving or speaking so slowly that other people could have noticed. Or the opposite - being so fidgety or restless that you have been moving around a lot more than usual: not at all 9. Thoughts that you would be better off or of hurting yourself in some way: not at all Total score: 0 Depression Screening Interpretation: Negative Depression Screening Done: Yes 16584 - PHQ-9 Billing: Yes Source: Developed by Drs. Jovanny Hernandez, Elly Costa, Jurgen Guillen and colleagues, with an educational marva from [employer]. Physical Exam Vital Signs: Last Vital Signs Pulse 68 02/28/25 08:00 Resp 16 02/28/25 08:00 BP 140/90 H 02/28/25 08:00 Pulse Ox 95 02/28/25 08:00 Oxygen Delivery Method Room Air 02/28/25 08:00 BMI result Body Mass Index 31.1 Assessment & Plan Assessment & Plan (1) Medicare annual wellness visit, initial: Code(s): Z00.00 - Encounter for general adult medical examination without abnormal findings (2) (HFpEF) heart failure with preserved ejection fraction: Code(s): I50.30 - Unspecified diastolic (congestive) heart failure Qualifiers: Heart failure chronicity: chronic Qualified Code(s): I50.32 - Chronic diastolic (congestive) heart failure (3) CAD (coronary artery disease): Comment: follows w/HCS Code(s): I25.10 - Atherosclerotic heart disease of [place] coronary artery without angina pectoris Qualifiers: Associated angina: without angina Coronary Disease-Associated Artery/Lesion type: [place] artery [place] vs. transplanted heart: [place] heart Qualified Code(s): I25.10 - Atherosclerotic heart disease of [place] coronary artery without angina pectoris (4) Carrier of hemochromatosis HFE gene mutation: Code(s): Z14.8 - Genetic carrier of other disease (5) Obesity due to excess calories: Code(s): E66.09 - Other obesity due to excess calories Qualifiers: Body mass index: BMI 37.0-37.9 Obesity classification: adult class 2 (BMI 35 - 39.9) Serious obesity comorbidity presence: with serious comorbidity Qualified Code(s): E66.01 - Morbid (severe) obesity due to excess calories; Z68.37 - Body mass index [BMI] 37.0-37.9, adult (6) Elevated blood pressure reading: Comment: Make healthy food choices . Eat lots of fruits, vegetables, whole grains, and low-fat dairy products. Limit the amount of meat and fried or fatty foods that you eat. Be active Walk, garden, or do something active for 30 minutes or more on most days of the week. If you smoke, stop smoking. Smoking increases the chance of heart attack or stroke, or develop cancer.If you are over weight, Lose weight, Being overweight increases the risk of many health problems. Avoid alcohol Alcohol can increase blood sugar and blood pressure. Code(s): R03.0 - Elevated blood-pressure reading, without diagnosis of hypertension Plan History of Present Illness The patient is a 64-year-old female presenting with a Medicare Wellness Visit. Atrial Fibrillation: - History of atrial fibrillation, underwent an ablation and a pulse field ablation in March. - Currently prescribed a blood thinner, though further evaluation and potential discontinuation by casino enforcement agent is anticipated. Hypertension: - Reports a previous blood pressure reading of 140/90 mmHg. Obesity: - Body mass index (BMI) recorded at 31.2. - History of weight management difficulties; attempting to lose weight from 285 pounds. 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 - Advised to avoid iron supplementation. Hyperglycemia: - Previously recorded fasting glucose level of 100 mg/dL. Osteoarthritis: - Reports knee discomfort attributed to physical activity. History of Uterine Polyps (benign): - Underwent a hysterectomy due to benign polyps. Ophthalmologic Issues Requiring Laser Procedure: - Recently underwent laser procedure on eyes. Medical History: - Atrial Fibrillation history of - Hypertension - Obesity - Hemochromatosis (Carrier Status) - Hyperglycemia - Osteoarthritis - History of Uterine Polyps (Benign) Surgical History: - Hysterectomy - Pulse field ablation for Atrial Fibrillation - Ophthalmologic laser procedure Social History: - Engages in regular exercise, including gym visits and daily treadmill use. - Currently working on weight management; noted a history of weight loss efforts. - Denies smoking and alcohol consumption. - Reports dietary changes with instances of increased beef consumption historically. Health Maintenance - Mammogram last completed in March 2021, due again in March. - Last comprehensive blood test in February; CBC normal, electrolytes normal, renal function slightly affected. - Pneumonia vaccine (Prevnar 20) recommended. - Recommendation for colon cancer screening with Cologuard kit. colonoscopy refused by pt - Immunizations include Tetanus (2019), Zoster vaccine (2022). [place] [facility] - Resident Care Associate: Dr. Almeida - Scouring Machine Operator: Dr. Henderson, [place] Medications - Furosemide: As needed for hypertension and cardiological care. [ not taking any more ] - Albuterol: Prescribed, indication not specified in conversation. - Blood thinner: Prescribed post-ablation procedure for atrial fibrillation. Diagnostic results Labs: - Last blood test in February 2024: CBC normal, electrolytes normal, kidney functions slightly affected. - Fasting glucose recorded at 100 mg/dL. - Hemochromatosis screening in February 2024 revealed one gene positive. Patient Instructions - Complete Cologuard test as discussed. - Consider pneumonia vaccination. - Monitor and maintain regular exercise routine. - Continue current medications as prescribed. - Avoid iron supplements due to carrier status for hemochromatosis. Orders: Orders Lipid Panel Today E66.01 - Morbid (severe) obesity due to excess calories, I25.10 - Atherosclerotic heart disease of [place] coronary artery without angina pectoris, I48.91 - Unspecified atrial fibrillation, I50.32 - Chronic diastolic (congestive) heart failure, Z00.00 - Encounter for general adult medical examination without abnormal findings, Z14.8 - Genetic carrier of other disease, Z68.37 - Body mass index [BMI] 37.0-37.9, adult Ferritin Today E66.01 - Morbid (severe) obesity due to excess calories, I25.10 - Atherosclerotic heart disease of [place] coronary artery without angina pectoris, I48.91 - Unspecified atrial fibrillation, I50.32 - Chronic diastolic (congestive) heart failure, Z00.00 - Encounter for general adult medical examination without abnormal findings, Z14.8 - Genetic carrier of other disease, Z68.37 - Body mass index [BMI] 37.0-37.9, adult Complete Blood Count Auto Diff Today E66.01 - Morbid (severe) obesity due to excess calories, I25.10 - Atherosclerotic heart disease of [place] coronary artery without angina pectoris, I48.91 - Unspecified atrial fibrillation, I50.32 - Chronic diastolic (congestive) heart failure, Z00.00 - Encounter for general adult medical examination without abnormal findings, Z14.8 - Genetic carrier of other disease, Z68.37 - Body mass index [BMI] 37.0-37.9, adult Comprehensive [place]. Panel Fast Today E66.01 - Morbid (severe) obesity due to excess calories, I25.10 - Atherosclerotic heart disease of [place] coronary artery without angina pectoris, I48.91 - Unspecified atrial fibrillation, I50.32 - Chronic diastolic (congestive) heart failure, Z00.00 - Encounter for general adult medical examination without abnormal findings, Z14.8 - Genetic carrier of other disease, Z68.37 - Body mass index [BMI] 37.0-37.9, adult TSH reflex Free T4 Today E66.01 - Morbid (severe) obesity due to excess calories, I25.10 - Atherosclerotic heart disease of [place] coronary artery without angina pectoris, I48.91 - Unspecified atrial fibrillation, I50.32 - Chronic diastolic (congestive) heart failure, Z00.00 - Encounter for general adult medical examination without abnormal findings, Z14.8 - Genetic carrier of other disease, Z68.37 - Body mass index [BMI] 37.0-37.9, adult Referrals Cologuard Test Z12.11 - Encounter for screening for malignant neoplasm of colon Quality Reporting (2020) Depression/Bipolar (159/160/161/177) PHQ-9: Total score: 0 Coding Level of Care Code Medicare First (G0438) Est Pt Level 3 (59615) Diagnoses Medicare annual wellness visit, initial Z00.00 Chronic heart failure with preserved ejection fraction I50.32 Heart failure chronicity: chronic Coronary artery disease involving [place] coronary artery of [place] heart without angina pectoris I25.10 Associated angina: without angina Coronary Disease-Associated Artery/Lesion type: [place] artery [place] vs. transplanted heart: [place] heart Carrier of hemochromatosis HFE gene mutation Z14.8 Class 2 severe obesity due to excess calories with serious comorbidity and body mass index (BMI) of 37.0 to 37.9 in adult E66.01; Z68.37 Body mass index: BMI 37.0-37.9 Obesity classification: adult class 2 (BMI 35 - 39.9) Serious obesity comorbidity presence: with serious comorbidity Elevated blood pressure reading R03.0 CPT Codes Advance Care Planning - Time spent: 1-15 minutes, on File ([id number]) Additional Codes PHQ-9 - 77789 - PHQ-9 Billing: Yes ([id number]) Advance Care Planning Forms completed: [facility] Time spent: 1-15 minutes, on File
== END 2025-02-28 08:50 | disposition home or self-care (01) ==
PROVIDERS: PCP Internal Medicine; Visit Provider Internal Medicine
DX: Z00.00 Encounter for general adult medical examination without abnormal findings (principal); I50.32 Chronic diastolic (congestive) heart failure; E66.01 Morbid (severe) obesity due to excess calories; Z68.37 Body mass index [BMI] 37.0-37.9, adult; I25.10 Atherosclerotic heart disease of native coronary artery without angina pectoris; Z14.8 Genetic carrier of other disease; R03.0 Elevated blood-pressure reading, without diagnosis of hypertension

== ENCOUNTER 2025-03-13 09:08 | Outpatient (AMB) | payer MEDICARE, SELFPAY ==
--- NOTE | 2025-03-13 09:17 | MHC.OFFVIS ---
Vital Signs 03/13/25 09:18 Height 5 ft 6 in Weight 191 lb BMI 30.8 BP 138/80 Blood Pressure Location Lt brachial Position Sitting Pulse 70 Pulse Source Pulse Oximeter Intake Visit Reasons: 3m follow up Allergies amoxicillin (AMOXICILLIN) Allergy (Intermediate, Verified 02/28/25 08:03) HIVES Sulfa (Sulfonamide Antibiotics) (SULFA (SULFONAMIDE ANTIBIOTICS)) Allergy (Intermediate, Verified 02/28/25 08:03) HIVES Feqpuqc-[id number]-NmU Reductase Inhibitor Allergy (Mild, Verified 02/28/25 08:03) Muscle Pain azithromycin Allergy (Unknown, Verified 02/28/25 08:03) Unknown Medication List - Last Reconciled 03/13/25 by Iam Almeida MD furosemide 20 mg PO DAILY PRN rivaroxaban (Xarelto) 20 mg PO DAILY 90 days HPI Comments Details: Candida comes for follow-up. She has been doing very well from cardiac perspective. She the other day walks 7 miles without any issues. She said heart rate at night sometimes goes in the upper 30s but usually when she wakes of the heart rates in the 50s and low 60s. However she can exercise and heart rate can go up to 130 beats per minute. She has not had any episodes of atrial fibrillation. She denies any lightheadedness, syncope. Denies any exertional shortness of breath fatigue. No orthopnea, PND, leg edema. No bleeding issues or neurologic events. Recent TSH level was on the lower side at 0.26 but T4 was within normal limits. Renal function is within normal limits. [facility] Medical History (Updated 03/13/25 @ 09:44 by Iam Almeida MD) PAT (paroxysmal atrial tachycardia) (HFpEF) heart failure with preserved ejection fraction Paroxysmal atrial fibrillation Uncontrolled hypertension Cervical mass CAD (coronary artery disease) A-fib Surgical History History of hysterectomy H/O oral surgery Hx of cholecystectomy Hx of tonsillectomy Family History Father Heart failure Social History Housing: House Alcohol intake: never Patient Tobacco Use Status: Never used Tobacco e-Cigarette/Vaping Use: Never Used Second Hand Smoke Exposure: No service: No Current occupational status: employed Sexual orientation: Straight/Heterosexual Gender identity: Female Cognitive needs: No Hearing needs: No Vision needs: Yes Female Reproductive History Menstrual Age of Menarche: 11 Review of Systems Const Denies weakness Eyes Reports no additional complaints ENT Reports no additional complaints and Denies dizziness Card Reports no additional complaints, Denies chest pain, Denies chest pain with activity, Denies syncope, Denies rapid heart rate, Denies pedal edema, Denies edema, Denies leg edema, Denies lightheadedness, Denies palpitations, Denies dyspnea, Denies dyspnea on exertion and Denies orthopnea Resp Denies cough, Denies dyspnea and Denies dyspnea on exertion GI Denies hematochezia and Denies change in stool character Musc Denies abnormal gait, Denies muscle cramps, Denies muscle weakness, Denies numbness, Denies radiating pain into limb and Denies tingling Neuro Denies abnormal gait, Denies dizziness, Denies syncope, Denies numbness, Denies tingling and Denies weakness Endo Denies palpitations Physical Exam Vital Signs: Last Vital Signs Pulse 70 03/13/25 09:18 BP 138/80 03/13/25 09:18 BMI result Body Mass Index 30.8 Const General: cooperative, healthy appearing, comfortable and no acute distress Nutritional Appearance: obese Orientation/consciousness: patient oriented x3 Neck Neck: Yes normal visual inspection Chest Chest palpation & inspection: normal inspection of the chest Resp Effort & Inspection: normal respiratory effort Auscultation: clear to auscultation bilaterally, no crackles, no rales, no rhonchi and no wheezes Cardio Jugular venous distension: no JVD Rate: bradycardic Rhythm: regular rhythm Heart sounds: S1 normal heart sound present, S2 normal heart sound present, no murmurs and no rubs Neuro General: patient oriented x3 Extrem General: Yes normal to inspection, No no clubbing, cyanosis or edema, No no pedal edema and No calf tenderness Psych Appearance: grossly normal Mental Status: mental status grossly normal Speech and movement: Normal speech and movement present Office Procedures EKG Details: EKG shows accelerated junctional rhythm [id number], Complete Assessment & Plan Assessment & Plan (1) Paroxysmal atrial fibrillation: Code(s): I48.0 - Paroxysmal atrial fibrillation Category: Medical Plan: Paroxysmal atrial fibrillation which was long-term persistent and resistant to treatment including with amiodarone underwent ablation. Finally she is currently off amiodarone. Doing very well with sinus rhythm. Her heart failure syndrome in his resolved. She is clinically doing extremely well. Continue full oral anticoagulation given left atrial and right atrial pathology to reduce thromboembolic risk and continue Xarelto. Semi annual renal function test should be pursued. Her low TSH is most likely from discontinuation of amiodarone therapy in his long run. Her thyroid function overall appear to be within normal limits. 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 She has no symptoms related to it. I do not think she needs pacing therapy at this point time as he is not going to change her overall clinical status. Symptoms associated with slow heart rate and bradycardia were discussed with her and she understands and agrees. (3) (HFpEF) heart failure with preserved ejection fraction: Code(s): I50.30 - Unspecified diastolic (congestive) heart failure Category: Medical Qualifiers: Heart failure chronicity: chronic Qualified Code(s): I50.32 - Chronic diastolic (congestive) heart failure Plan: Heart failure preserved ejection fraction, clinically euvolemic and well compensated. Uses Lasix as need be. She has done extremely well with rhythm control approach will continue pursue rhythm control approach. She had also done very well with weight loss program and encouraged her to continue to participate in aggressive lifestyle modification along with weight loss as well as regular physical activity. She understands agrees. Use Lasix as need be. (4) CAD (coronary artery disease): Comment: follows w/HCS Code(s): I25.10 - Atherosclerotic heart disease of [place] coronary artery without angina pectoris Category: Medical Qualifiers: Coronary Disease-Associated Artery/Lesion type: [place] artery [place] vs. transplanted heart: [place] heart Associated angina: without angina Qualified Code(s): I25.10 - Atherosclerotic heart disease of [place] coronary artery without angina pectoris Plan: Mild atherosclerotic disease noted non obstructive. Should consider statin therapy with target goal LDL less than 70 mg/dL. Continue aggressive lifestyle modification. Currently on full oral anticoagulation Xarelto. Follow up in the clinic in 1 year's time after an echocardiogram. Thank you for allowing me to partake in her care Coding Level of Care Code Est Pt Level 4 (33914) Complex EM visit Add On G2211 Diagnoses Paroxysmal atrial fibrillation I48.0 Sick sinus syndrome I49.5 Chronic heart failure with preserved ejection fraction I50.32 Heart failure chronicity: chronic Coronary artery disease involving [place] coronary artery of [place] heart without angina pectoris I25.10 Coronary Disease-Associated Artery/Lesion type: [place] artery [place] vs. transplanted heart: [place] heart Associated angina: without angina CPT Codes EKG - CPT: 60064-[id number], Complete ([id number])
[2025-03-13 09:18] VITALS: BP 138/80; PULSE 70; BMI 30.8
--- OUTSIDE RECORDS SUMMARY | 2025-03-13 10:36 | XMS_ITS | Clinical Summary ---
Author Organization [facility] Address [address] [facility] [address] [place] [address] Phone Care Team Providers Care Post Splitter Name Role Phone Michelle Sarmiento MD Primary Care Provider [phone] Social History Tobacco Use Types Packs/Day Years [...] 2009 ZOSTER VACCINES (1 of 2) 2009 OSTEOPOROSIS SCREENING INITI AL (ONE-TIME) 2024 INFLUENZA VACCINE (#1) 2025 COVID-19 VACCINE ( - 2023-2 5 season) 2025 RSV VACCINE (1 - 1-dose 75+ series) [...] topic Medical Devices Not on file Insurance [facility] [address] [place] [address] [place], [place] [address] [place], [place] [address]O Care Teams Post Splitter Relationship Specialty Start Date End Date Michelle Sarmiento MD [address] [place] [address] PCP - General Internal Medicine 03/12/24 Additional Source Comments The information contained in this document represents components of the legal health record. It is not the complete legal health record.[facility]
== END 2025-03-13 09:42 | disposition home or self-care (01) ==
LOC: HO.HCS 09:08
PROVIDERS: PCP Internal Medicine; Visit Provider Internal Medicine Cardiovascular Disease
DX: I48.0 Paroxysmal atrial fibrillation (principal); I49.5 Sick sinus syndrome; I50.32 Chronic diastolic (congestive) heart failure; I25.10 Atherosclerotic heart disease of native coronary artery without angina pectoris
CPT/HCPCS: 93010; 99214; G2211

== ENCOUNTER → 2025-03-13 09:08 | Outpatient (BNVA) | payer MEDICARE, SELFPAY | PROVIDERS: PCP Internal Medicine; Visit Provider Internal Medicine Cardiovascular Disease | DX: I48.0 Paroxysmal atrial fibrillation (principal); I49.5 Sick sinus syndrome; I50.32 Chronic diastolic (congestive) heart failure; I25.10 Atherosclerotic heart disease of native coronary artery without angina pectoris; R94.31 Abnormal electrocardiogram [ECG] [EKG] | CPT/HCPCS: 93005; 99212 ==

== ENCOUNTER 2025-03-17 07:30 | Outpatient (REF) | payer MEDICARE, SELFPAY ==
--- OUTSIDE RECORDS SUMMARY | 2025-03-17 07:34 | XMS_ITS | Clinical Summary ---
Author Organization [facility] Address [address] [facility] [address] [place] [address] Phone Care Team Providers Care Cisco Administrator Name Role Phone Michelle Sarmiento MD Primary Care Provider [phone] Social History Tobacco Use Types Packs/Day Years [...] Medical Devices Not on file [facility] [address] [place] [address] [place] [place] [address] [place], [place] [address]O Care Teams Cisco Administrator Relationship Specialty Start Date End Date Michelle Sarmiento MD [address] [address] PCP - General Internal Medicine 03/12/24 Additional Source Comments The information contained in this document represents components of the legal health record. It is not the complete legal health record.[facility]
[2025-03-17 11:45] LABS: Free T4 (Free Thyroxine) 1.61 ng/dL (0.71-1.85)
[2025-03-18 18:48] LABS: Thyroglobulin Antibodies <1 IU/mL (< or = 1)
== END 2025-03-17 07:31 | disposition home or self-care (01) ==
LOC: HO.HMGCLDS 07:30
PROVIDERS: PCP Internal Medicine; Visit Provider Internal Medicine
DX: R79.89 Other specified abnormal findings of blood chemistry (principal)
CPT/HCPCS: 36415; 84439; 84443; 86800

== ENCOUNTER 2025-03-18 10:20 | Outpatient (AMB) | payer MEDICARE, SELFPAY ==
--- NOTE | 2025-03-18 10:22 | MHC.PC.OV ---
Vital Signs 03/18/25 10:23 Height 5 ft 6 in Weight 189 lb BMI 30.5 BP 160/82 H Blood Pressure Location Lt brachial Position Sitting Pulse 68 Pulse Source Pulse Oximeter Pulse Oximetry (%) 96 Oxygen Delivery Method Room Air Intake Visit Reasons: lab review Pulp Drier Required: No Accompanied by: Self / Same As Patient Allergies amoxicillin (AMOXICILLIN) Allergy (Intermediate, Verified 03/18/25 10:23) HIVES Sulfa (Sulfonamide Antibiotics) (SULFA (SULFONAMIDE ANTIBIOTICS)) Allergy (Intermediate, Verified 03/18/25 10:23) HIVES Cgpbhyj-XRQ-OnW Reductase Inhibitor Allergy (Mild, Verified 03/18/25 10:23) Muscle Pain azithromycin Allergy (Unknown, Verified 03/18/25 10:23) Unknown Medication List - Last Reconciled 03/18/25 by Michelle Sarmiento MD furosemide 20 mg PO DAILY PRN rivaroxaban (Xarelto) 20 mg PO DAILY 90 days Tobacco use date assessed: 03/18/25 Fall risk assessment: No Falls in past year Last assessed Fall Risk: 03/18/25 Dental Screening Dental Screen Date: 03/18/25 Did you have a dental visit in the last 12 months?: Yes Did you have a dental problem in the last 6 months where you did not have access to dental care?: No Was dental information given to patient?: Patient has dentist HPI lab review HPI Details History The patient is a 64-year-old female presenting with concerns regarding her thyroid function and hypertension. Thyroid Dysfunction: - The patient was previously on amiodarone for cardiac reasons from December 01 until May 26 of last year. - She has been experiencing low TSH levels - Her TSH level was within normal limit February of last year It dropped on 02/28/2025 and now it is 0.03 checked on 17 of March this year - She reports no significant symptoms such as palpitations or other issues related to hyperthyroid states, although her heart rate is occasionally felt. - Discussed potential familial predisposition; mother is on thyroxine and had a similar health history. - The patient has been continuing intermittent fasting for over a year, with blood work indicating normal T4 except for low TSH. Hypertension: - Blood pressure was noted to be high at 160 x 82 with an association to anxiety. - it was 138 x 80 earlier this month on Medical History: - History of hyperfunctioning thyroid post-amiodarone use - Hypertension - Sick sinus syndrome - Intermittent fasting for over a year Social History: - Lives with a ; assuming shared family responsibilities Family History: - Mother is on thyroxine for thyroid dysfunction and had also took amiodarone for cardiac reasons Problem List - Hyperfunctioning thyroid post-amiodarone use - Essential Hypertension - History of sick sinus syndrome Diagnostic results - Labs: CBC normal, electrolytes normal, kidney function normal, liver enzymes normal, cholesterol acceptable, low TSH, normal T4 levels - Tests and diagnostics: Awaiting antibodies for Carlota's thyroiditis, Cologuard test pending [place] of Care - Discussed potential endocrinology referral for further thyroid evaluation Patient Instructions - Continue monitoring blood pressure at home - Schedule an ultrasound of the thyroid gland - Repeat thyroid function tests, including TSH, in 6 weeks - Follow up with endocrinology as discussed for advanced thyroid management - Continue appropriate nutrition during fasting periods - Engage in relaxation techniques to manage anxiety Review of Systems General: No fever no chills neurological: No headaches no dizziness ear nose throat: No sore throat no hearing difficulty no ear pain cardiovascular: No syncope, no chest pain gastrointestinal: No nausea vomiting or diarrhea Physical Exam general: No acute distress HEENT: No acute findings neck: Supple respiratory system: Able to talk in full sentences, no audible wheeze no stridor cardiovascular: S1-S2 gastrointestinal: No pain extremities: No new findings CLASSIFIED COPY CONTROL CLERK: Alert awake oriented x3 motor sensory intact skin: Normal turgor Patient was informed and verbally consented to the use of an ambient scribe for clinic note documentation during this visit. [facility] Medical History PAT (paroxysmal atrial tachycardia) (HFpEF) heart failure with preserved ejection fraction Paroxysmal atrial fibrillation Uncontrolled hypertension Cervical mass CAD (coronary artery disease) A-fib Surgical History History of hysterectomy H/O oral surgery Hx of cholecystectomy Hx of tonsillectomy Family History Father Heart failure Social History Housing: House Alcohol intake: never Patient Tobacco Use Status: Never used Tobacco e-Cigarette/Vaping Use: Never Used Second Hand Smoke Exposure: No service: No Current occupational status: employed Sexual orientation: Straight/Heterosexual Gender identity: Female Cognitive needs: No Hearing needs: No Vision needs: Yes Female Reproductive History Menstrual Age of Menarche: 11 Questionnaire PHQ-9 Over the last 2 weeks, how often have you been bothered by any of the following problems? 1. Little interest or pleasure in doing things: not at all 2. Feeling down, depressed, or hopeless: not at all 3. Trouble falling or staying asleep, or sleeping too much: not at all 4. Feeling tired or having little energy: not at all 5. Poor appetite or overeating: not at all 6. Feeling bad about yourself - or that you are a failure or have let yourself or your family down: not at all 7. Trouble concentrating on things, such as reading the newspaper or watching television: not at all 8. Moving or speaking so slowly that other people could have noticed. Or the opposite - being so fidgety or restless that you have been moving around a lot more than usual: not at all 9. Thoughts that you would be better off or of hurting yourself in some way: not at all Total score: 0 Depression Screening Interpretation: Negative Depression Screening Done: Yes 90142 - PHQ-9 Billing: Yes Source: Developed by Drs. Jovanny Hernandez, Elly Costa, Jurgen Guillen and colleagues, with an educational marva from [employer]. Thrive Questionnaire Date Thrive assessed: 02/21/25 I am a: Patient What is your living situation today?: I have a steady place to live Within the past 12 months, did the food you bought not last and you didn't have the money to get more?: Never true Within the past 12 months, did you worry whether your food would run out before you got money to buy more?: Never true Do you have trouble paying for medicines?: No Do you have trouble getting transportation to medical appointments?: No Do you have trouble paying your heating and electricity bill?: No Do you have trouble taking care of your child, family member or friend?: No Do you have trouble with day-to-day activities such as bathing, preparing meals, shopping, managing finances, etc.?: No Are you currently unemployed and looking for a job?: No Are you interested in more education?: No Please select the resources that you would like help with: None Currently or been in a relationship where the following occur: No concerns reported THRIVE Score: 0 AUDIT C Alcohol Use Questionnaire (AUDIT-C) 1. How often do you have a drink containing alcohol?: Never 3. How often do you have six or more drinks on one occasion?: Never Total Score: 0 Score Reviewed/Action Taken: Yes DARNELL-7 AMB Questionnaire DARNELL-7 Date DARNELL - 7 assessed: 03/18/25 Feeling nervous, anxious, or on edge: 1 = Several days Not being able to stop or control worryin = Several days Worrying too much about different things: 0 = Not at all Trouble relaxin = Not at all Being so restless that it is hard to sit still: 0 = Not at all Becoming easily annoyed or irritable: 0 = Not at all Feeling afraid as if something awful might happen: 1 = Several days Total DARNELL-7 score (0-4 normal; 5-9 mild; 10-14 moderate; 15-21 severe): 3 Source: Developed by Drs. Jovanny Hernandez, Elly Costa, Jurgen Guillen and colleagues, with an educational marva from [employer]. DARNELL-7 Assessment Billing DARNELL-7 Assessment Tool: DARNELL-7 Assessment 55480 Physical exam (Primary Care) Vital Signs: Last Vital Signs Pulse 68 03/18/25 10:23 BP 160/82 H 03/18/25 10:23 Pulse Ox 96 03/18/25 10:23 Oxygen Delivery Method Room Air 03/18/25 10:23 BMI result Body Mass Index 30.5 Tobacco/Smoking Status: Tobacco use Status Tobacco use date assessed 03/18/25 03/18/25 10:28 Patient Tobacco Use Status Never used Tobacco 03/18/25 10:28 e-Cigarette/Vaping Use Never Used 03/18/25 10:28 PHQ-9: PHQ-9 Score PHQ-9: Total score 0 03/18/25 10:59 Depression Screening Interpretation: Negative Thrive Assessment: Date of Thrive Assessment Date Thrive assessed 02/21/25 03/18/25 10:28 Currently or been in a relationship where the following occur: No concerns reported Coding Level of Care Code Est Pt Level 4 (22727) Complex EM visit Add On G2211 Diagnoses Low TSH level R79.89 History of amiodarone therapy Z92.29 Paroxysmal atrial fibrillation I48.0 Anxiety about health R45.89 Elevated blood pressure reading R03.0 Family history of thyroid disease Z83.49 Additional Codes DARNELL-7 Assessment Billing - DARNELL-7 Assessment Tool: DARNELL-7 Assessment 21912 ([id number]) PHQ-9 - 60237 - PHQ-9 Billing: Yes ([id number]) Assessment & Plan Assessment & Plan (1) Low TSH level: Code(s): R79.89 - Other specified abnormal findings of blood chemistry Category: Medical (2) History of amiodarone therapy: Code(s): Z92.29 - Personal history of other drug therapy Category: Medical (3) Paroxysmal atrial fibrillation: Code(s): I48.0 - Paroxysmal atrial fibrillation Category: Medical (4) Anxiety about health: Code(s): R45.89 - Other symptoms and signs involving emotional state Category: Medical (5) Elevated blood pressure reading: Code(s): R03.0 - Elevated blood-pressure reading, without diagnosis of hypertension Category: Medical (6) Family history of thyroid disease: Code(s): Z83.49 - Family history of other endocrine, nutritional and metabolic diseases Category: Medical Plan History The patient is a 64-year-old female presenting with concerns regarding her thyroid function and hypertension. Thyroid Dysfunction: - The patient was previously on amiodarone for cardiac reasons from December 01 until May 26 of last year. - She has been experiencing low TSH levels - Her TSH level was within normal limit February of last year It dropped on 02/28/2025 and now it is 0.03 checked on 17 of March this year - She reports no significant symptoms such as palpitations or other issues related to hyperthyroid states, although her heart rate is occasionally felt. - Discussed potential familial predisposition; mother is on thyroxine and had a similar health history. - The patient has been continuing intermittent fasting for over a year, with blood work indicating normal T4 except for low TSH. Hypertension: - Blood pressure was noted to be high at 160 x 82 with an association to anxiety. - it was 138 x 80 earlier this month on Medical History: - History of hyperfunctioning thyroid post-amiodarone use - Hypertension - Sick sinus syndrome - Intermittent fasting for over a year Social History: - Lives with a ; assuming shared family responsibilities Family History: - Mother is on thyroxine for thyroid dysfunction and had also took amiodarone for cardiac reasons Problem List - Hyperfunctioning thyroid post-amiodarone use - Essential Hypertension - History of sick sinus syndrome Diagnostic results - Labs: CBC normal, electrolytes normal, kidney function normal, liver enzymes normal, cholesterol acceptable, low TSH, normal T4 levels - Tests and diagnostics: Awaiting antibodies for Carlota's thyroiditis, Cologuard test pending [place] of Care - Discussed potential endocrinology referral for further thyroid evaluation Patient Instructions - Continue monitoring blood pressure at home - Schedule an ultrasound of the thyroid gland - Repeat thyroid function tests, including TSH, in 6 weeks - Follow up with endocrinology as discussed for advanced thyroid management - Continue appropriate nutrition during fasting periods - Engage in relaxation techniques to manage anxiety Orders: Orders US thyroid Today R79.89 - Other specified abnormal findings of blood chemistry TSH reflex Free T4 6 Weeks R79.89 - Other specified abnormal findings of blood chemistry Referrals Endocrinology Referral R79.89 - Other specified abnormal findings of blood chemistry
[2025-03-18 10:23] VITALS: BP 160/82; PULSE 68; O2SAT 96; BMI 30.5
--- OUTSIDE RECORDS SUMMARY | 2025-03-18 12:33 | XMS_ITS | Clinical Summary ---
Author Organization [facility] Address [address] [place] [address] Phone Care Team Providers Care Ultrasonic Cleaner Name Role Phone Michelle Sarmiento MD Primary Care Provider [phone] Social History Tobacco Use Types Packs/Day Years [...] topic Medical Devices Not on file [facility] [address] [place] [place] [address] [place], [place] [address] [place], [place] [address]O Care Teams Ultrasonic Cleaner Relationship Specialty Start Date End Date Michelle Sarmiento MD [address] [place] [address] PCP - General Internal Medicine 03/12/24 Additional Source Comments The information contained in this document represents components of the legal health record. It is not the complete legal health record.[facility]
== END 2025-03-18 11:06 | disposition home or self-care (01) ==
LOC: HO.HMCC 10:20
PROVIDERS: PCP Internal Medicine; Visit Provider Internal Medicine
DX: R79.89 Other specified abnormal findings of blood chemistry (principal); Z92.29 Personal history of other drug therapy; I48.0 Paroxysmal atrial fibrillation; R45.89 Other symptoms and signs involving emotional state; R03.0 Elevated blood-pressure reading, without diagnosis of hypertension; Z83.49 Family history of other endocrine, nutritional and metabolic diseases

== ENCOUNTER → 2025-03-18 10:20 | Outpatient (BNVA) | payer MEDICARE, SELFPAY | PROVIDERS: PCP Internal Medicine; Visit Provider Internal Medicine | DX: I10 Essential (primary) hypertension (principal); R79.89 Other specified abnormal findings of blood chemistry; I48.0 Paroxysmal atrial fibrillation; R45.89 Other symptoms and signs involving emotional state; R03.0 Elevated blood-pressure reading, without diagnosis of hypertension; Z83.49 Family history of other endocrine, nutritional and metabolic diseases; Z92.29 Personal history of other drug therapy | CPT/HCPCS: 96127; 99212 ==

== ENCOUNTER 2025-04-21 08:00 | Outpatient (REF) | payer MEDICARE, SELFPAY ==
--- NOTE | ~2025-04-21 | MM_ITS ---
EXAMINATION: MM SCREENING DIGITAL BREAST TOMOSYNTHESIS, BILATERAL CLINICAL INFORMATION: Screening. Asymptomatic. COMPARISON: Mammography: Comparison is made with available priors TECHNIQUE: Digital breast mammography with tomosynthesis is performed in both the craniocaudal and mediolateral oblique views along with computer-aided detection (CAD). FINDINGS: There are scattered areas of fibroglandular density. There are no significant masses, abnormal calcifications, or other abnormalities. MM/MM tomosynthesis screening BI IMPRESSION: No mammographic evidence of malignancy. ASSESSMENT: BI-RADS Category 1: Negative RECOMMENDATION: Routine annual mammography screening. 1 year F/U This examination should not preclude the clinical evaluation of a suspicious palpable abnormality. This patient's information was entered into a reminder system with a target due date for their next mammogram. Electronically signed by: Kirstin Galindo DO 04/22/2025 03:06 PM JOYCE
--- OUTSIDE RECORDS SUMMARY | 2025-04-21 08:03 | XMS_ITS | Clinical Summary ---
Author Organization [facility] Address [address] [facility] [address] [place] [address] Phone Care Team Providers Care Hospital Account Manager Name Role Phone Michelle Sarmiento MD Primary Care Provider [phone] Social History Tobacco Use Types Packs/Day Years [...] 2024 INFLUENZA VACCINE (#1) 2025 COVID-19 VACCINE (2024-2 6 season) 2025 RSV VACCINE (1 - 1-dose [...] topic Medical Devices Not on file Insurance [facility] [address] [place] [address] [place] [address] [place], [place] [address]O Care Teams Hospital Account Manager Relationship Specialty Start Date End Date Michelle Sarmiento MD [address] [place] [id number] PCP - General Internal Medicine 03/12/24 Additional Source Comments The information contained in this document represents components of the legal health record. It is not the complete legal health record.[facility]
== END 2025-04-21 08:01 | disposition home or self-care (01) ==
LOC: HO.MAMMO 08:00
PROVIDERS: PCP Internal Medicine; Visit Provider Internal Medicine
DX: Z12.31 Encounter for screening mammogram for malignant neoplasm of breast (principal)
CPT/HCPCS: 77063; 77067

== ENCOUNTER → 2025-04-21 08:15 | Outpatient (BNV) | payer MEDICARE, SELFPAY | PROVIDERS: PCP Internal Medicine; Visit Provider Internal Medicine | DX: Z12.31 Encounter for screening mammogram for malignant neoplasm of breast (principal) | CPT/HCPCS: 77063; 77067 ==

== ENCOUNTER 2025-04-28 07:24 | Outpatient (REF) | payer MEDICARE, SELFPAY ==
--- OUTSIDE RECORDS SUMMARY | 2025-04-28 07:28 | XMS_ITS | Clinical Summary ---
Author Organization [facility] Address [address] [facility] [address] [place] [address] Phone Care Team Providers Care Meter Reader Inspector Name Role Phone Michelle Sarmiento MD Primary Care Provider [phone] Social History Tobacco Use Types Packs/Day Years [...] topic Medical Devices Not on file [facility] [address] [place] [address] [place] [address] [place], [place] [address]O Care Teams Meter Reader Inspector Relationship Specialty Start Date End Date Michelle Sarmiento MD [address] [facility] [place] [id number] PCP - General Internal Medicine 03/12/24 Additional Source Comments The information contained in this document represents components of the legal health record. It is not the complete legal health record.[facility]
[2025-04-28 12:02] LABS: Free T4 (Free Thyroxine) 1.87 ng/dL (0.71-1.85)
== END 2025-04-28 07:25 | disposition home or self-care (01) ==
LOC: HO.HMGCLDS 07:24
PROVIDERS: PCP Internal Medicine; Visit Provider Internal Medicine
DX: R79.89 Other specified abnormal findings of blood chemistry (principal); Z13.29 Encounter for screening for other suspected endocrine disorder
CPT/HCPCS: 36415; 84439; 84443

== ENCOUNTER 2025-05-01 08:43 | Outpatient (AMB) | payer MEDICARE, SELFPAY ==
[2025-05-01 08:59] VITALS: BP 176/110; PULSE 96; O2SAT 98; BMI 29.5
--- NOTE | 2025-05-01 08:59 | A.OFFVIS_ITS ---
Vital Signs 05/01/25 08:59 Height 5 ft 6 in Weight 182 lb 15.739 oz BMI 29.5 BP 176/110 H Blood Pressure Location Rt brachial Position Sitting Pulse 96 Pulse Source Pulse Oximeter Pulse Oximetry (%) 98 Oxygen Delivery Method Room Air Intake Visit Reasons: Other specified abnormal findings of blood chemis Intake Note: NEW Patient presents today to establish care for Other specified abnormal findings of blood chemistry: LOW TSH Recruiter Required: No Accompanied by: Significant Other Allergies amoxicillin (AMOXICILLIN) Allergy (Intermediate, Verified 05/01/25 09:01) HIVES Sulfa (Sulfonamide Antibiotics) (SULFA (SULFONAMIDE ANTIBIOTICS)) Allergy (Intermediate, Verified 05/01/25 09:01) HIVES Cciyklr-IKK-GxW Reductase Inhibitor Allergy (Mild, Verified 05/01/25 09:01) Muscle Pain azithromycin Allergy (Unknown, Verified 05/01/25 09:01) Unknown Medication List - Last Reconciled 05/01/25 by Tomeka Walls MD furosemide 20 mg PO DAILY PRN methimazole 10 mg PO BID prednisone 40 mg (2 x 20 mg) PO DAILY rivaroxaban (Xarelto) 20 mg PO DAILY 90 days HPI Comments Details: The patient is a pleasant 64 years old female with a history of atrial fibrillation, status post two ablation procedures, presenting for evaluation of abnormal thyroid function tests noted incidentally during a recent primary care visit. She recalls taking amiodarone for less than six months prior to her ablation, and the drug was discontinued several months ago. Her first ablation was limited because the phrenic nerve was located in front of one of the pulmonary veins, which could not be safely ablated; a subsequent pulsed field ablation was completed to address this issue. Since stopping amiodarone, she has remained in stable rhythm and continues on rivaroxaban (Xarelto) for anticoagulation. She reports that she was feeling well at the time her thyroid abnormality was discovered. The issue came to light after her TSH level was found to be suppressed at a routine physical in early February. A repeat test showed further suppression of TSH and a mild elevation in free T4, suggesting biochemical hyperthyroidism. She denies any previous history of thyroid disease, thyroid nodules, or prior thyroid-related evaluations. Her mother has hypothyroidism and takes levothyroxine. When asked about symptoms, she is notably asymptomatic. She denies experiencing palpitations, racing heartbeat, heat intolerance, tremor, anxiety, or increased bowel frequency. She has lost weight, but attributes this to intentional lifestyle changes?specifically intermittent fasting for more than a year and daily treadmill exercise of over three miles, now reduced to three times a week. She describes feeling well overall and denies overt symptoms of thyrotoxicosis. She does recall a transient episode of lip swelling and a small oral bruise that resolved spontaneously but does not relate it to her thyroid problem. Review of Systems General: Intentional weight loss due to diet and exercise. No fevers, night sweats, or unexplained fatigue reported. Cardiovascular: No current episodes of palpitations distinct from baseline; aware of heartbeats at times. No chest pain reported during visit. Respiratory: Denies dyspnea in the conversation; lungs clear on exam. GI: Bowel frequency uncertain; possibly slightly increased after starting rivaroxaban; no donnie diarrhea or abdominal pain. Endocrine: No clear heat intolerance or excessive sweating reported. No polyuria or polydipsia reported. Neuro: No hand tremor reported; no focal deficits mentioned. Psych: Some anticipatory anxiety about future health and medications; uses humor; otherwise mood appropriate. HEENT: No dysphagia, no sensation of food sticking, no neck masses or persistent pain Musculoskeletal: No acute complaints during this visit; osteoporosis discussed as a potential complication of hyperthyroidism and steroid therapy. Dermatologic: Prior rash with amiodarone; no current rash reported. Physical exam General: Well appearing. Neck/Thyroid: Thyroid not palpable, no nodules. Eyes: No conjunctival injection, not lid lag or proptosis CV: RRR, no murmur. No edema. Resp:Lungs clear to auscultation bilaterally Abdomen: Soft, nontender. nondistended Extremities/Neuro: No weakness or tremor of outstretched hands Laboratory Tests 03/12/24 02/28/25 03/17/25 06:40 09:01 07:39 TSH 2.58 0.26 L 0.03 L Free T4 1.24 1.61 04/28/25 07:33 TSH < 0.01 L Free T4 1.87 H PFSH Medical History PAT (paroxysmal atrial tachycardia) (HFpEF) heart failure with preserved ejection fraction Paroxysmal atrial fibrillation Uncontrolled hypertension Cervical mass CAD (coronary artery disease) A-fib Surgical History History of hysterectomy H/O oral surgery Hx of cholecystectomy Hx of tonsillectomy Family History Father Heart failure Social History Housing: House Alcohol intake: never Patient Tobacco Use Status: Never used Tobacco e-Cigarette/Vaping Use: Never Used Second Hand Smoke Exposure: No service: No Current occupational status: employed Sexual orientation: Straight/Heterosexual Gender identity: Female Cognitive needs: No Hearing needs: No Vision needs: Yes Female Reproductive History Menstrual Age of Menarche: 11 Physical Exam Vital Signs: Last Vital Signs Pulse 96 05/01/25 08:59 BP 176/110 H 05/01/25 08:59 Pulse Ox 98 05/01/25 08:59 Oxygen Delivery Method Room Air 05/01/25 08:59 BMI result Body Mass Index 29.5 Assessment & Plan Assessment & Plan (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 The timing of onset after amiodarone exposure and the absence of underlying thyroid disease are most consistent with amiodarone-induced thyroiditis, likely a mixed type 1 and type 2 process. The type 1 component results from iodine-induced stimulation of hormone production, while the type 2 component represents destructive thyroid inflammation with release of preformed hormone. The relatively short course of amiodarone, lack of nodular disease, and minimal symptomatology lean toward a predominant type 2 pattern, although both processes may coexist. Given her cardiac history and the potential for recurrent arrhythmia, it is prudent to treat rather than observe, even in the absence of symptoms. The therapeutic approach will combine methimazole to reduce new hormone synthesis and prednisone to suppress thyroid inflammation and inhibit T4-to-T3 conversion. The expected course is several months of therapy, with gradual tapering once thyroid function normalizes. She understands that her treatment will be guided primarily by laboratory monitoring, as she is asymptomatic. She was thoroughly counseled about possible medication side effects, including agranulocytosis, hepatotoxicity, and steroid-related effects, and knows to seek emergency care for fever or sore throat. Her questions regarding travel, bone health, and medication interactions were addressed in detail. Plan Methimazole 10 mg orally twice daily. Prednisone 40 mg orally once daily Repeat labs in 6 weeks, including: TSH, Free T4, ? Free/Total T3, Liver panel, CBC with differential, Thyroid antibodies (TPO, TSI/TRAb) Proceed with thyroid ultrasound (already ordered) Continue moderate exercise as tolerated; avoid overexertion if palpitations occur. Adequate calcium and vitamin D intake to support bone health If thyroid remains overactive despite therapy, consider definitive treatment (thyroidectomy), though unlikely given short amiodarone exposure. Follow-up endocrinology visit in 8 weeks with repeat labs for review. Earlier contact if new symptoms or medication intolerance occur. Plan 60 minutes spent reviewing previous records, labs, imaging, education and documenting in the chart Orders: Orders TSH reflex Free T4 6 Weeks E06.4 - Drug-induced thyroiditis, T46.2X5A - Adverse effect of other antidysrhythmic drugs, initial encounter Thyroid Stimulating Immunoglob 6 Weeks E06.4 - Drug-induced thyroiditis, T46.2X5A - Adverse effect of other antidysrhythmic drugs, initial encounter Thyroid Peroxidase Antibodies 6 Weeks E06.4 - Drug-induced thyroiditis, T46.2X5A - Adverse effect of other antidysrhythmic drugs, initial encounter Complete Blood Count no Diff 6 Weeks E06.4 - Drug-induced thyroiditis, T46.2X5A - Adverse effect of other antidysrhythmic drugs, initial encounter Liver Panel 6 Weeks E06.4 - Drug-induced thyroiditis, T46.2X5A - Adverse effect of other antidysrhythmic drugs, initial encounter Thyrotropin Receptor Antibody 6 Weeks E06.4 - Drug-induced thyroiditis, T46.2X5A - Adverse effect of other antidysrhythmic drugs, initial encounter Medications: New methimazole Take 1 tablet twice daily 10 mg PO BID 60 tabs 3RF E06.4 - Drug-induced thyroiditis, T46.2X5A - Adverse effect of other antidysrhythmic drugs, initial encounter prednisone 40 mg (2 x 20 mg) PO DAILY 60 tabs 5RF prednisone 40 mg (2 x 20 mg) PO DAILY 60 tabs 5RF methimazole Take 1 tablet twice daily 10 mg PO BID 60 tabs 3RF E06.4 - Drug-induced thyroiditis, T46.2X5A - Adverse effect of other antidysrhythmic drugs, initial encounter Patient Instructions: Methimazole: Patient Instructions on Side Effects What is Methimazole? Methimazole is a medication used to treat hyperthyroidism (overactive thyroid). Possible Side Effects: Most people tolerate methimazole well, but side effects can occur. It is important to recognize them early. Common Side Effects: * Mild rash or itching * Upset stomach, nausea, or mild abdominal pain * Headache * Joint or muscle aches * Changes in taste Serious Side Effects (Call the office or seek care immediately): * Fever, sore throat, or mouth sores:?These may be signs of a low white blood cell count (agranulocytosis), which can be serious. * Unusual bruising or bleeding * Yellowing of the skin or eyes (jaundice), dark urine, or severe fatigue:?These may indicate liver problems. * Severe skin rash or blistering * Shortness of breath or chest pain What to Do: * If you develop a fever (over 100.4?F/38?C), sore throat, or mouth sores, stop taking methimazole and contact the office immediately. * Report any signs of liver problems or unusual bruising/bleeding. * For mild side effects (nausea, mild rash), let your provider know at your next visit. Routine Monitoring: * You will need regular blood tests to monitor your blood counts and liver function while on methimazole. When to Seek Emergency Care: * Difficulty breathing, swelling of the face or throat, or severe allergic reaction (anaphylaxis). Contact Information: If you have any questions or experience any of the above symptoms, contact the office at . Coding Level of Care Code New Pt Level 5 (17536) Diagnoses Amiodarone-induced thyroiditis E06.4; T46.2X5A
--- OUTSIDE RECORDS SUMMARY | 2025-05-01 09:15 | XMS_ITS | Clinical Summary ---
Author Organization [facility] Address [address] [facility] [address] [place] [address] Phone Care Team Providers Care Medical Laboratory Manager Name Role Phone Michelle Sarmiento MD Primary Care Provider [phone] Social History Tobacco Use Types Packs/Day Years [...] topic Medical Devices Not on file [facility] [address] [place] [address] [place], [place] [address] [place], [place] [address]O Care Teams Medical Laboratory Manager Relationship Specialty Start Date End Date Michelle Sarmiento MD [address] [facility] [place] [address] PCP - General Internal Medicine 03/12/24 Additional Source Comments The information contained in this document represents components of the legal health record. It is not the complete legal health record.[facility]
== END 2025-05-01 09:58 | disposition home or self-care (01) ==
LOC: HO.ENCR 08:43
PROVIDERS: PCP Internal Medicine; Visit Provider Student in an Organized Health Care Education/Training Program
DX: E06.4 Drug-induced thyroiditis (principal); T46.2X5A Adverse effect of other antidysrhythmic drugs, initial encounter
CPT/HCPCS: 99205

== ENCOUNTER → 2025-05-01 08:43 | Outpatient (BNVA) | payer MEDICARE, SELFPAY | PROVIDERS: PCP Internal Medicine; Visit Provider Student in an Organized Health Care Education/Training Program | DX: E06.4 Drug-induced thyroiditis (principal); T46.2X5A Adverse effect of other antidysrhythmic drugs, initial encounter; I48.91 Unspecified atrial fibrillation | CPT/HCPCS: 99202 ==

== ENCOUNTER 2025-05-15 13:04 | Outpatient (REF) | payer MEDICARE, SELFPAY ==
--- NOTE | ~2025-05-15 | US_ITS ---
EXAMINATION: US THYROID HISTORY: R79.89 - LOW TSH TECHNIQUE: Real-time grayscale ultrasound imaging was performed and images were reviewed. COMPARISON: There are no prior studies available for comparison. FINDINGS: SIZE: The right thyroid lobe measures 4.7 x 1.3 x 1.0 cm. The left thyroid lobe measures 4.6 x 0.9 x 1.5 cm. The isthmus measures 2 mm. FLOW: Flow to the gland is normal. ECHOGENICITY: The echotexture of the gland is homogeneous. NODULES: Multiple nodules are identified as described below: Nodule #: 1 Location: Midportion of the right thyroid lobe measuring 5 x 3 x 3 mm. Shape: Wider than tall (0 points) Margins: Smooth (0 points) Echotexture: Isoechoic (1 point) Composition: Solid (2 points) Calcifications: None (0 points) Total points: 3 TIRADS: TR3: Mildly suspicious. Nodule #: 2 Location: Lower pole of the right thyroid lobe measuring 8 x 4 x 6 mm. Shape: Wider than tall (0 points) Margins: Smooth (0 points) Echotexture: Hyperechoic (1 point) Composition: Solid (2 points) Calcifications: None (0 points) Total points: 3 TIRADS: TR3: Mildly suspicious. Nodule #: 3 Location: Lower pole of the left thyroid lobe measuring 8 x 3 x 5 mm. Shape: Wider than tall (0 points) Margins: Smooth (0 points) Echotexture: Hyperechoic (1 point) Composition: Solid (2 points) Calcifications: None (0 points) Total points: 3 TIRADS: TR3: Mildly suspicious. US/US thyroid IMPRESSION: Subcentimeter bilateral thyroid nodules as described. ACR TI-RADS Guidelines TR1 (0 points): Benign. No follow-up or biopsy required TR2 (2 points): Not Suspicious. No biopsy or follow up indicated TR3 (3 points): Mildly Suspicious. FNA if >= 2.5 cm, Follow if >= 1.5 cm TR4 (4-6 points): Moderately Suspicious. FNA if >= 1.5 cm, Follow if >= 1.0 cm TR5 (>=7 points): Highly Suspicious. FNA if >= 1.0 cm, Follow if >= 0.5 cm Electronically signed by: Jovanny Murphy MD 05/15/2025 01:46 PM [facility]
== END 2025-05-15 13:05 | disposition home or self-care (01) ==
LOC: HO.HMGCX 13:04
PROVIDERS: PCP Internal Medicine; Visit Provider Internal Medicine
DX: R79.89 Other specified abnormal findings of blood chemistry (principal)
CPT/HCPCS: 76536

== ENCOUNTER → 2025-05-15 13:10 | Outpatient (BNV) | payer MEDICARE, SELFPAY | PROVIDERS: PCP Internal Medicine; Visit Provider Radiology Diagnostic Radiology | DX: E04.2 Nontoxic multinodular goiter (principal) | CPT/HCPCS: 76536 ==

== ENCOUNTER 2025-06-23 06:17 | Outpatient (REF) | payer MEDICARE, SELFPAY ==
--- OUTSIDE RECORDS SUMMARY | 2025-06-23 06:20 | XMS_ITS | Clinical Summary ---
Author Organization [facility] Address [address] [facility] [address] [place] [address] Phone Care Team Providers Care Asp Net C Developer Name Role Phone Michelle Sarmiento MD Primary Care Provider [phone] Social History Tobacco Use Types Packs/Day Years [...] Devices Not on file [facility] [address] [place] [place] [address] [place], [place] [address] [place], [place] [address]O Care Teams Asp Net C Developer Relationship Specialty Start Date End Date Michelle Sarmiento MD [address] [facility] [place] [address] PCP - General Internal Medicine 03/12/24 Additional Source Comments The information contained in this document represents components of the legal health record. It is not the complete legal health record.[facility]
[2025-06-23 10:45] LABS: Hematocrit 45.0 % (37.0-47.0); Hemoglobin 14.8 g/dl (12.0-16.0); Mean Corpuscular HGB Conc 32.9 g/dl (31.0-35.0); Mean Corpuscular Hemoglobin 29.9 pg (27.0-33.0); Mean Corpuscular Volume 90.9 fL (80.0-98.0); NRBC Abs Auto 0.000 X10*3/uL (0.0-0.012); NRBC Pct Auto 0.0 /100WBC (0.0-0.2); Platelet Count 223 X10*3/uL (160-400); Red Blood Count 4.95 X10*6/uL (4.20-5.50); White Blood Count 9.0 X10*3/uL (4.8-10.8)
[2025-06-23 11:04] LABS: Alanine Aminotransferase 608 U/L (0-31); Albumin Level 4.1 g/dL (3.5-5.0); Alkaline Phosphatase 394 U/L (39-117); Aspartate Amino Transferase 144 U/L (5-31); Total Protein 6.6 g/dL (6.5-8.0)
[2025-06-23 12:35] LABS: Free T4 (Free Thyroxine) 0.68 ng/dL (0.71-1.85)
== END 2025-06-23 06:18 ==
LOC: HO.HMGCLDS 06:17
PROVIDERS: PCP Internal Medicine; Visit Provider Student in an Organized Health Care Education/Training Program
DX: Z01.84 Encounter for antibody response examination (principal); E06.4 Drug-induced thyroiditis; T46.2X5A Adverse effect of other antidysrhythmic drugs, initial encounter
CPT/HCPCS: 36415; 80076; 83520; 84439; 84443; 84445; 85027; 86376